=== PATIENT | female | born 1975 | race Caucasian/White ===

== ENCOUNTER → 2016-03-01 | Outpatient (CLI) | payer OTHER ==
[~2016-03-01] MED LIST: AMPH10TA2 PO; ATV/1 PO; BREX1TAB2 PO; ELET40TA PO; FLUO20CA37 PO; FURO-85 PO; GABA-112 PO; GABA1CAP5 PO; HYDR-5688 PO; LAMO1TAB21 PO; OMEP40CA PO; PRAZ2CAP3 PO; PROP1TAB PO; TIZA4TAB3 PO
[2016-03-01 18:54] LABS: URINE APPEARANCE CLOUDY (CLEAR); URINE BILIRUBIN NEG (NEG); URINE COLOR YELLOW; URINE EPITHELIAL CELL AUTO 20-30 /lpf (0-5); URINE NITRITE NEG (NEG); UROBILINOGEN NEG (NEG)
[2016-03-01 19:17] LABS: MANUAL MICROSCOPIC REQUIRED? NO; REVIEW REQ? YES
[2016-03-05 12:35] LABS: CHLAMYDIA TRACH RNA*** NOT DETECTED (NOT DETECTED); GC (NEIS GONORRHOEAE)RNA** NOT DETECTED (NOT DETECTED)
== END | disposition home or self-care (01) ==
LOC: C.LABSPEC 16:56
PROVIDERS: ATTEND Nurse Practitioner
DX: R39.9 Unspecified symptoms and signs involving the genitourinary system (principal); N76.0 Acute vaginitis

== ENCOUNTER → 2017-04-19 | Outpatient (CLI) | payer OTHER ==
[~2017-04-19] MED LIST changes: +GABA-1220 PO; -GABA1CAP5 PO
== END | disposition home or self-care (01) ==
LOC: C.LABBFT 09:32
PROVIDERS: ATTEND Physician Assistant Medical
DX: R30.0 Dysuria (principal); Z00.00 Encounter for general adult medical examination without abnormal findings; F41.9 Anxiety disorder, unspecified; F31.9 Bipolar disorder, unspecified; R73.01 Impaired fasting glucose; I10 Essential (primary) hypertension; E87.6 Hypokalemia; M25.562 Pain in left knee

== ENCOUNTER 2019-02-02 12:57 | Inpatient (IN) ==
[2019-02-02] MEDS ORDERED: NALOXONE HCL 0.4 MG/1 ML VIAL/CARP IV STA (13:38)
[2019-02-02 13:42] LABS: Basophils # (auto) 0.08 K/uL (0-0.2); Basophils % (auto) 0.7 %; Eosinophils # (auto) 0.44 K/uL (0-0.5); Eosinophils % (auto) 4.1 %; Hematocrit (blood only) 40.6 % (37-47); Hemoglobin 13.9 g/dL (12.0-16.0); Immature Granulocytes # (auto) 0.04 K/uL (0.00-0.02); Immature Granulocytes % (auto) 0.4 %; Lymphocytes # (auto) 3.92 K/uL (1.2-3.4); Lymphocytes % (auto) 36.3 %; Mean Corpuscular Hemoglobin 28.8 pg (25-34); Mean Corpuscular Hgb Conc 34.2 g/dL (32-36); Mean Corpuscular Volume 84.1 fL (80-100); Mean Platelet Volume 9.3 fL (7.4-10.4); Monocytes # (auto) 0.67 K/uL (0.11-0.59); Monocytes % (auto) 6.2 %; Neutrophils # (auto) 5.64 K/uL (1.4-6.5); Neutrophils % (auto) 52.3 %; Platelet Count 340 K/uL (130-400); RDW Coefficient of Variation 15.4 % (11.5-14.5); RDW Standard Deviation 46.8 fL (36.4-46.3); Red Blood Count 4.83 M/uL (4.2-5.4); White Blood Count 10.79 K/uL (4.8-10.8)
[2019-02-02 13:50] LABS: Alanine Aminotransferase 14 U/L (12-78); Albumin Level 3.4 gm/dl (3.4-5.0); Aspartate Aminotransferase 13 U/L (15-37); BUN Creatinine Ratio 19.1 (10-20); Blood Urea Nitrogen 17 mg/dl (7-18); Carbon Dioxide 21 mmol/L (21-32); Chloride 107 mmol/L (98-107); Est GFR (African American) 94.6; Est GFR (Non-African American) 81.6; Glucose 106 mg/dl (70-99); Lipase 169 U/L (73-393); Potassium 3.9 mmol/L (3.5-5.1); Sodium 136 mmol/L (136-145)
[2019-02-02] MEDS: NITROGLYCERIN SL 0.4 MG/TAB TAB SL PRN ×2 (13:51→14:18)
[2019-02-02 13:55] LABS: Albumin Globulin Ratio 0.9 (0.9-2); Alkaline Phosphatase 101 U/L (45-117); Bilirubin,Total 0.3 mg/dl (0.2-1); Globulin 3.7 gm/dl (2.5-4.0); Total Protein 7.1 gm/dl (6.4-8.2); Troponin I < 0.015 ng/ml (0-0.045)
--- NOTE | 2019-02-02 13:58 | XRay Report ---
XR chest 1V portable CLINICAL HISTORY: Chest Pain COMPARISON STUDY: No previous studies for comparison. FINDINGS: The bones soft tissues and hemidiaphragms are normal. The cardiomediastinal silhouette is n ormal. The lungs are clear. The pulmonary vasculature is normal. IMPRESSION: Negative chest. The above report was generated using voice recognition software. It may contain grammatical, syntax or spelling errors. Electronically signed by: Corwin Manjarrez M.D. 02/02/2019 1:56 PM
--- NOTE | 2019-02-02 15:49 | Emergency Department Note ---
Entered by Domonique Franklin acting as a scribe for Christi Betancur MD History of Present Illness General Chief complaint: Chest Pain Source: patient History of Present Illness Onset (ago): minute(s) (prior to arrival) Location: chest Radiation: extremity (left armpit and left arm ) Pain Consistency: + other (episode) Maximum Pain Intensity: 8 Quality: + other (chest pain) Associated symptoms: + other (+left arm numbness; -abdominal pain) Treatments prior to arrival: other (2 aspirin) The patient is a 43 year old female, with past medical history of hypertension and major depression, who presents to the Emergency Room with complaints of an episode of chest pain that began just prior to arrival while the patient was sitting in the parking lot of a grocery store. The patient notes she has experienced similar chest pain in the past, but she states it typically resolves itself. However, the patient notes todays episode kept worseneing to the point where the patient states it felt as if there was a huge knife in her chest. The patient states the pain travels up her ribs, into her left armpit, and into her left arm. She also notes her left arm feels numb. She describes this numbness by saying her arm feels as if she wrote a 10 page paper by hand. The patient note she took her daily medications this morning. The patient denies abdominal pain or a chance for . The patient reports she smokes a pack of cigarettes a day. She also notes she received 2 aspirin in the ambulance en route to the ED. Home Medications Home Medications Medication Instructions Recorded Confirmed Type albuterol sulfate [Ventolin HFA] 2 puff INHALATION Q6H PRN 07/11/18 02/02/19 History tizanidine 4 mg tablet See Rx Instructions PO TID PRN 01/16/19 02/02/19 Rx #150 tab alprazolam 0.5 mg PO TID #30 tab 02/02/19 Rx aspirin [Ecotrin Low Strength] 81 mg PO QAM 30 Days #30 tab 02/02/19 Rx atorvastatin 80 mg PO QAM #30 tab 02/02/19 Rx brexpiprazole [Rexulti] 3 mg PO DAILY 30 Days #30 tabs 02/02/19 Rx brexpiprazole [Rexulti] 3 mg PO QAM #30 tab 02/02/19 Rx dextroamphetamine-amphetamine 20 mg PO TID #30 tabs 02/02/19 Rx [Adderall] gabapentin 600 mg PO UD #60 cap 02/02/19 Rx gabapentin 900 mg PO HS #90 cap 02/02/19 Rx lamotrigine 100 mg PO BID #60 tab 02/02/19 Rx metoprolol tartrate 25 mg PO BID #60 tab 02/02/19 Rx prazosin 1 mg PO HS 02/02/19 02/02/19 History Allergies Allergy/AdvReac Type Severity Reaction Status Date / Time nitrofurantoin Allergy Severe throat Verified 02/02/19 17:19 edema. ketorolac Allergy Intermediate Hot skin Verified 02/02/19 17:19 blotches. meperidine Allergy Intermediate hot skin Verified 02/02/19 17:19 blotches Past Med/Surg History Medical History Diabetes mellitus, type 2 diet controlled Fibromyalgia GERD (gastroesophageal reflux disease) Hearing deficit History of endometriosis History of thyroiditis HTN (hypertension) (Chronic) Hx of anxiety disorder (Chronic) Hx of bipolar disorder (Chronic) Hx of major depression (Chronic) Hx of migraines (Chronic) Hyperlipidemia IBS (irritable bowel syndrome) Lumbar radiculopathy (Chronic) Medical marijuana use Pain management contract broken (Chronic) Per PCP notes: Random urine screen was negative for Gabapentin and Hydrocodone was appropriate. 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 smokes) ; Hx Alcohol Use: No Hx Substance Use: Yes (medical marijuana) substance use type: marijuana S ubstance Use Type Other:: medical marijuana Last Used Substance: Just Prior to Arrival Review of Systems See HPI for pertinent positives & negatives. and A total of 10 systems reviewed and were otherwise negative Physical Exam Vital Signs Vital Signs - 24 hr 02/02/19 13:03 02/02/19 13:06 02/02/19 13:08 Temperature 36.7 C Temperature Source Oral Pulse Rate 85 84 84 Pulse Rate [Apical] Pulse Rate from SpO2 Sensor 85 86 Pulse Rhythm [Apical] Pulse Strength [Apical] Respiratory Rate 23 20 23 Respiratory Effort / Characteristics Non-Labored Spontaneous Respiratory Depth Normal Respiratory Pattern Blood Pressure 163/91 H 163/91 H Blood Pressure [Left Arm] Blood Pressure Mean 113 115 Blood Pressure Mean [Left Arm] Blood Pressure Position Lying Blood Pressure Position [Left Arm] Pulse Oximetry 94 94 95 Oxygen Delivery Method Room Air Sepsis Recent Fever Within 48 Hours No Sepsis New/Unexplained Change in Mental Status No Sepsis Action Taken by Nursing No Action Required 02/02/19 13:10 02/02/19 13:20 02/02/19 13:30 Temperature Temperature Source Pulse Rate 89 91 H 81 Pulse Rate [Apical] Pulse Rate from SpO2 Sensor 88 91 H 82 Pulse Rhythm [Apical] Pulse Strength [Apical] Respiratory Rate 26 H 22 20 Respiratory Effort / Characteristics Respiratory Depth Respiratory Pattern Blood Pressure Blood Pressure [Left Arm] Blood Pressure Mean Blood Pressure Mean [Left Arm] Blood Pressure Position Blood Pressure Position [Left Arm] Pulse Oximetry 98 95 96 Oxygen Delivery Method Sepsis Recent Fever Within 48 Hours Sepsis New/Unexplained Change in Mental Status Sepsis Action Taken by Nursing 02/02/19 13:38 02/02/19 13:40 02/02/19 13:50 Temperature Temperature Source Pulse Rate 84 91 H Pulse Rate [Apical] Pulse Rate from SpO2 Sensor 84 92 H Pulse Rhythm [Apical] Pulse Strength [Apical] Respiratory Rate 18 20 Respiratory Effort / Characteristics Respiratory Depth Respiratory Pattern Blood Pressure Blood Pressure [Left Arm] Blood Pressure Mean Blood Pressure Mean [Left Arm] Blood Pressure Position Blood Pressure Position [Left Arm] Pulse Oximetry 95 99 Oxygen Delivery Method Room Air Sepsis Recent Fever Within 48 Hours Sepsis New/Unexplained Change in Mental Status Sepsis Action Taken by Nursing 02/02/19 13:53 02/02/19 14:00 02/02/19 14:10 Temperature Temperature Source Pulse Rate 91 H 88 80 Pulse Rate [Apical] Pulse Rate from SpO2 Sensor 90 88 78 Pulse Rhythm [Apical] Pulse Strength [Apical] Respiratory Rate 35 H 14 18 Respiratory Effort / Characteristics Respiratory Depth Respiratory Pattern Blood Pressure 148/100 H Blood Pressure [Left Arm] Blood Pressure Mean 115 Blood Pressure Mean [Left Arm] Blood Pressure Position Blood Pressure Position [Left Arm] Pulse Oximetry 99 97 99 Oxygen Delivery Method Sepsis Recent Fever Within 48 Hours Sepsis New/Unexplained Change in Mental Status Sepsis Action Taken by Nursing 02/02/19 14:17 02/02/19 14:20 02/02/19 14:30 Temperature Temperature Source Pulse Rate 78 83 87 Pulse Rate [Apical] 79 Pulse Rate from SpO2 Sensor 78 84 87 Pulse Rhythm [Apical] Regular Pulse Strength [Apical] Normal Respiratory Rate 13 15 7 L Respiratory Effort / Characteristics Non-Labored Spontaneous Respiratory Depth Normal Respiratory Pattern Regular Blood Pressure 132/81 141/73 H Blood Pressure [Left Arm] 132/81 Blood Pressure Mean 95 93 Blood Pressure Mean [Left Arm] 98 Blood Pressure Position Blood Pressure Position [Left Arm] Sitting Pulse Oximetry 100 97 98 Oxygen Delivery Method Room Air Sepsis Recent Fever Within 48 Hours Sepsis New/Unexplained Change in Mental Status Sepsis Action Taken by Nursing 02/02/19 14:31 02/02/19 14:40 02/02/19 14:50 Temperature Temperature Source Pulse Rate 84 79 81 Pulse Rate [Apical] Pulse Rate from SpO2 Sensor 85 81 82 Pulse Rhythm [Apical] Pulse Strength [Apical] Respiratory Rate 12 15 14 Respiratory Effort / Characteristics Respiratory Depth Respiratory Pattern Blood Pressure Blood Pressure [Left Arm] Blood Pressure Mean Blood Pressure Mean [Left Arm] Blood Pressure Position Blood Pressure Position [Left Arm] Pulse Oximetry 99 99 100 Oxygen Delivery Method Sepsis Recent Fever Within 48 Hours Sepsis New/Unexplained Change in Mental Status Sepsis Action Taken by Nursing 02/02/19 15:00 02/02/19 15:10 02/02/19 15:20 Temperature Temperature Source Pulse Rate 82 84 87 Pulse Rate [Apical] Pulse Rate from SpO2 Sensor Pulse Rhythm [Apical] Pulse Strength [Apical] Respiratory Rate 14 17 14 Respiratory Effort / Characteristics Respiratory Depth Respiratory Pattern Blood Pressure Blood Pressure [Left Arm] Blood Pressure Mean Blood Pressure Mean [Left Arm] Blood Pressure Position Blood Pressure Position [Left Arm] Pulse Oximetry Oxygen Delivery Method Sepsis Recent Fever Within 48 Hours Sepsis New/Unexplained Change in Mental Status Sepsis Action Taken by Nursing 02/02/19 16:04 02/02/19 16:10 02/02/19 16:11 Temperature Temperature Source Pulse Rate 85 85 88 Pulse Rate [Apical] Pulse Rate from SpO2 Sensor 87 Pulse Rhythm [Apical] Pulse Strength [Apical] Respiratory Rate 17 24 20 Respiratory Effort / Characteristics Respiratory Depth Respiratory Pattern Blood Pressure 140/94 Blood Pressure [Left Arm] Blood Pressure Mean 101 Blood Pressure Mean [Left Arm] Blood Pressure Position Blood Pressure Position [Left Arm] Pulse Oximetry 94 Oxygen Delivery Method Sepsis Recent Fever Within 48 Hours Sepsis New/Unexplained Change in Mental Status Sepsis Action Taken by Nursing 02/02/19 16:12 02/02/19 16:20 02/02/19 16:30 Temperature Temperature Source Pulse Rate 84 85 85 Pulse Rate [Apical] Pulse Rate from SpO2 Sensor 86 85 85 Pulse Rhythm [Apical] Pulse Strength [Apical] Respiratory Rate 19 20 18 Respiratory Effort / Characteristics Respiratory Depth Respiratory Pattern Blood Pressure 142/92 H Blood Pressure [Left Arm] Blood Pressure Mean 100 Blood Pressure Mean [Left Arm] Blood Pressure Position Blood Pressure Position [Left Arm] Pulse Oximetry 96 98 96 Oxygen Delivery Method Sepsis Recent Fever Within 48 Hours Sepsis New/Unexplained Change in Mental Status Sepsis Action Taken by Nursing 02/02/19 16:31 02/02/19 17:45 Temperature Temperature Source Pulse Rate 88 Pulse Rate [Apical] 77 Pulse Rate from SpO2 Sensor 89 Pulse Rhythm [Apical] Regular Pulse Strength [Apical] Normal Respiratory Rate 24 16 Respiratory Effort / Characteristics Non-Labored Respiratory Depth Normal Respiratory Pattern Regular Blood Pressure Blood Pressure [Left Arm] 156/100 H Blood Pressure Mean Blood Pressure Mean [Left Arm] 118 Blood Pressure Position Blood Pressure Position [Left Arm] Lying Pulse Oximetry 96 96 Oxygen Delivery Method Room Air Sepsis Recent Fever Within 48 Hours Sepsis New/Unexplained Change in Mental Status Sepsis Action Taken by Nursing Vital signs reviewed. General: Appears sedate, in no significant distress. HEENT: No scleral icterus, PERRLA, neck supple. Atraumatic. Cardiovascular: Regular rate and rhythm, no extra sounds. Pulmonary: Clear to auscultation bilaterally, normal work of breathing. Abdomen: Obese, soft, nontender, nondistended, positive bowel sounds. Musculoskeletal: Atraumatic, no peripheral edema. Neurologic: Patient awake alert and oriented x 3, full strength in all 4 extremities. Cranial nerves 2 through 12 grossly intact. Skin: Warm, dry, no rash Course Course 1332: Past medical records reviewed. The patient was evaluated in room B11A. A complete history and physical exam was performed. 1458: A repeat troponin was ordered. Administered Medications Discontinued Medications Eptifibatide (Integrilin (Arc [employer]der Use Only)) Confirm Administered Dose 40 mg IV .STK-MED ONE Stop: 02/02/19 17:12 Last Admin: 02/02/19 17:22 Dose: 177 mg Documented by: [id number] Eptifibatide (Integrilin (Arc [employer]der Use Only)) Confirm Administered Dose 75 mg .ROUTE .STK-MED ONE Stop: 02/02/19 17:12 Last Admin: 02/02/19 17:22 Dose: 75 mg Documented by: [id number] Eptifibatide (Integrilin (Arc [employer]der Use Only)) Confirm Administered Dose 20 mg IV .STK-MED ONE Stop: 02/02/19 17:15 Last Admin: 02/02/19 17:23 Dose: Not Given Documented by: [id number] Fentanyl Citrate (Fentanyl Citrate) Confirm Administered Dose 100 mcg .ROUTE .STK-MED ONE Stop: 02/02/19 16:09 Last Admin: 02/02/19 17:19 Dose: 100 mcg Documented by: [id number] Fentanyl Citrate (Fentanyl Citrate) Confirm Administered Dose 100 mcg .ROUTE .STK-MED ONE Stop: 02/02/19 16:57 Last Admin: 02/02/19 17:21 Dose: 100 mcg Documented by: [id number] Fentanyl Citrate (Fentanyl Citrate) Confirm Administered Dose 100 mcg .ROUTE .STK-MED ONE Stop: 02/02/19 17:08 Last Increment: 02/02/19 17:21 Dose: 25 mcg Documented by: [id number] Heparin Sodium (Porcine) (Heparin Iv Bolus (Arc [employer]der Use Only)) Confirm Administered Dose 10,000 units .ROUTE .STK-MED ONE Stop: 02/02/19 16:09 Last Admin: 02/02/19 17:20 Dose: 10,000 units Documented by: [id number] Heparin Sodium (Porcine) (Heparin Iv Bolus (Arc [employer]der Use Only)) Confirm Administered Dose 10,000 units .ROUTE .STK-MED ONE Stop: 02/02/19 17:10 Last Admin: 02/02/19 17:22 Dose: 3,000 units Documented by: [id number] Heparin Sodium/Sodium Chloride (Heparin/Nss 1000 Unit/500ml Flush Bag) Confirm Administered Dose 3,000 units IV .STK-MED ONE Stop: 02/02/19 16:10 Last Admin: 02/02/19 17:20 Dose: 3,000 units Documented by: [id number] Midazolam HCl (Versed) Confirm Administered Dose 2 mg .ROUTE .STK-MED ONE Stop: 02/02/19 16:10 Last Admin: 02/02/19 17:20 Dose: 2 mg Documented by: [id number] Midazolam HCl (Versed) Confirm Administered Dose 2 mg .ROUTE .STK-MED ONE Stop: 02/02/19 16:55 Last Admin: 02/02/19 17:21 Dose: 2 mg Documented by: [id number] Midazolam HCl (Versed) Confirm Administered Dose 2 mg .ROUTE .STK-MED ONE Stop: 02/02/19 17:02 Last Admin: 02/02/19 17:21 Dose: 2 mg Documented by: [id number] Midazolam HCl (Versed) Confirm Administered Dose 4 mg .ROUTE .STK-MED ONE Stop: 02/02/19 17:09 Last Increment: 02/02/19 17:21 Dose: 2 mg Documented by: [id number] Naloxone HCl (Narcan) 0.4 mg IV NOW STA Stop: 02/02/19 13:39 Last Admin: 02/02/19 14:11 Dose: Not Given Documented by: [id number] Nicardipine HCl (Cardene) Confirm Administered Dose 25 mg .ROUTE .STK-MED ONE Stop: 02/02/19 16:09 Last Admin: 02/02/19 17:19 Dose: 25 mg Documented by: [id number] Nitroglycerin (Nitrostat) 0.4 mg SL UD PRN PRN Reason: Chest Pain Stop: 03/04/19 13:32 Last Admin: 02/02/19 14:18 Dose: 0.4 mg Documented by: [id number] Admin: 02/02/19 13:51 Dose: 0.4 mg Documented by: [id number] Nitroglycerin/Dextrose (Nitroglycerin/D5w 100 Mcg/Ml 20ml Syringe) Confirm Administered Dose 2,000 mcg .ROUTE .STK-MED ONE Stop: 02/02/19 16:11 Last Admin: 02/02/19 17:20 Dose: 2,000 mcg Documented by: [id number] Critical Care Time Critical Care Time: Yes The high probability of a clinically significant, sudden or life threatening d eterioration required my full and direct attention, intervention and personal management. The aggregate critical care time was 30 minutes. This time is in addition to time spent performing reported procedures but includes the following: [x] Data Review and interpretation [x] Patient assessment and monitoring of vital signs [x] Documentation [] Medication orders and management Medical Decision Making Differential Diagnosis Differential diagnosis: Etiologies such as cardiac ischemia, aortic dissection, pulmonary embolism, pneumonia, pneumothorax, musculoskeletal, infections, pericarditis, myocarditis, esophageal rupture, gastrointestinal, as well as others were entertained. Medical Records Attestation: I reviewed the patient's medical records. Home Medications Current Medication List: was personally reviewed by me Laboratory Data Attestation: I reviewed the patient's lab results. Result diagrams: 02/02/19 12:44 02/02/19 12:44 Lab Results 02/02/19 02/02/19 02/02/19 Range/Units 12:44 12:44 15:16 WBC 10.79 (4.8-10.8) K/uL RBC 4.83 (4.2-5.4) M/uL Hgb 13.9 (12.0-16.0) g/dL Hct 40.6 (37-47) % MCV 84.1 (80-100) fL MCH 28.8 (25-34) pg MCHC 34.2 (32-36) g/dL RDW Std Deviation 46.8 H (36.4-46.3) fL RDW Coeff of Ministerio 15.4 H (11.5-14.5) % Plt Count 340 (130-400) K/uL MPV 9.3 (7.4-10.4) fL Immature Gran % (Auto) 0.4 % Neut % (Auto) 52.3 % Lymph % (Auto) 36.3 % [place] % (Auto) 6.2 % Eos % (Auto) 4.1 % Baso % (Auto) 0.7 % Immature Gran # (Auto) 0.04 H (0.00-0.02) K/uL Neut # (Auto) 5.64 (1.4-6.5) K/uL Lymph # (Auto) 3.92 H (1.2-3.4) K/uL [place] # (Auto) 0.67 H (0.11-0.59) K/uL Eos # (Auto) 0.44 (0-0.5) K/uL Baso # (Auto) 0.08 (0-0.2) K/uL Sodium 136 (136-145) mmol/L Potassium 3.9 (3.5-5.1) mmol/L Chloride 107 (98-107) mmol/L Carbon Dioxide 21 (21-32) mmol/L Anion Gap 8.0 (3-11) BUN 17 (7-18) mg/dl Creatinine 0.87 (0.6-1.2) mg/dl Est Cr Clr Drug Dosing Not Reportable Est GFR ( Amer) 94.6 Est GFR (Non-Af Amer) 81.6 BUN/Creatinine Ratio 19.1 (10-20) Glucose 106 H (70-99) mg/dl Calcium 9.0 (8.5-10.1) mg/dl Total Bilirubin 0.3 (0.2-1) mg/dl AST 13 L (15-37) U/L ALT 14 (12-78) U/L Alkaline Phosphatase 101 (45-117) U/L Troponin I < 0.015 0.251 H* (0-0.045) ng/ml Total Protein 7.1 (6.4-8.2) gm/dl Albumin 3.4 (3.4-5.0) gm/dl Globulin 3.7 (2.5-4.0) gm/dl Albumin/Globulin Ratio 0.9 (0.9-2) Lipase 169 (73-393) U/L Urine Opiates Screen (Neg) Ur Methadone, Qual (Neg) Urine Barbiturates (Neg) Ur Phencyclidine (PCP) (Neg) U Amphetamin/Meth Scrn (Neg) MDMA (Ecstasy) Screen (Neg) U Benzodiazepines Scrn (Neg) Ur Cocaine Metabolite (Neg) U Marijuana (THC) Screen (Neg) 02/02/19 Range/Units 15:41 WBC (4.8-10.8) K/uL RBC (4.2-5.4) M/uL Hgb (12.0-16.0) g/dL Hct (37-47) % MCV (80-100) fL MCH (25-34) pg MCHC (32-36) g/dL RDW Std Deviation (36.4-46.3) fL RDW Coeff of Ministerio (11.5-14.5) % Plt Count (130-400) K/uL MPV (7.4-10.4) fL Immature Gran % (Auto) % Neut % (Auto) % Lymph % (Auto) % [place] % (Auto) % Eos % (Auto) % Baso % (Auto) % Immature Gran # (Auto) (0.00-0.02) K/uL Neut # (Auto) (1.4-6.5) K/uL Lymph # (Auto) (1.2-3.4) K/uL [place] # (Auto) (0.11-0.59) K/uL Eos # (Auto) (0-0.5) K/uL Baso # (Auto) (0-0.2) K/uL Sodium (136-145) mmol/L Potassium (3.5-5.1) mmol/L Chloride (98-107) mmol/L Carbon Dioxide (21-32) mmol/L Anion Gap (3-11) BUN (7-18) mg/dl Creatinine (0.6-1.2) mg/dl Est Cr Clr Drug Dosing Est GFR ( Amer) Est GFR (Non-Af Amer) BUN/Creatinine Ratio (10-20) Glucose (70-99) mg/dl Calcium (8.5-10.1) mg/dl Total Bilirubin (0.2-1) mg/dl AST (15-37) U/L ALT (12-78) U/L Alkaline Phosphatase (45-117) U/L Troponin I (0-0.045) ng/ml Total Protein (6.4-8.2) gm/dl Albumin (3.4-5.0) gm/dl Globulin (2.5-4.0) gm/dl Albumin/Globulin Ratio (0.9-2) Lipase (73-393) U/L Urine Opiates Screen Neg (Neg) Ur Methadone, Qual Neg (Neg) Urine Barbiturates Neg (Neg) Ur Phencyclidine (PCP) Neg (Neg) U Amphetamin/Meth Scrn Neg (Neg) MDMA (Ecstasy) Screen Neg (Neg) U Benzodiazepines Scrn Neg (Neg) Ur Cocaine Metabolite Neg (Neg) U Marijuana (THC) Screen Neg (Neg) Imaging Data Radiologist's Impression: Radiology results as stated below per my review and the radiologist's interpretation: XR chest 1V portable CLINICAL HISTORY: Chest Pain COMPARISON STUDY: No previous studies for comparison. FINDINGS: The bones soft tissues and hemidiaphragms are normal. The cardiomediastinal silhouette is normal. The lungs are clear. The pulmonary vasculature is normal. IMPRESSION: Negative chest. The above report was generated using voice recognition software. It may contain grammatical, syntax or spelling errors. Electronically signed by: Corwin Manjarrez M.D. 02/02/2019 1:56 PM ECG Data Attestation: I personally reviewed and interpreted this ECG as follows: Indication: + chest pain Rate (beats per minute): 86 Rhythm: + normal sinus ECG Intervals/blocks: + Normal QT-c (466) ECG ST segments: no ST depression and no ST elevation ECG Findings: + Other (J point elevation consistent with early repolarization; ); no PACs and no PVCs Additional Comments: Repeat EKG at 1559 indicates a normal sinus rhythm at [address] elevation in the anterior leads no reciprocal change is appreciated. Heart alert called Blood Pressure Blood Pressure Findings: Elevated blood pressure Blood Pressure Disposition: elevated BP felt to be situational MDM Narrative This patient was evaluated and appeared to be in no significant distress. Patient was sitting up in the bed talking with her family. She did receive aspirin and nitroglycerin prior to arrival. Patient seemed to be sedate/ intoxicated and Narcan was ordered however the patient requested pain medication by nursing staff. No Narcan was administered. EKG was reviewed and reveals a sinus rhythm with J-point elevation diffusely. Chest x-ray was obtained and is negative. Patient's laboratory work reveals a negative troponin. A repeat troponin at 2.5 hours was ordered and results are positive at 0.251. Repeat EKG reveals ST elevation in the anterior leads, although the patient's pain has somewhat improved. She now only complains of "pain in my armpits." A heart alert was called. Plan was d/w pt. She was upset and requested a cigarette. She initially wanted to signout AMA to smoke but was thankfully convinced to stay. Dr Greenfield arrived at the bedside and took pt for cardiac cath. Impression & Plan ST elevation (STEMI) myocardial infarction Discharge Plan Visit Data *Final* Discharge Date/Time: 02/02/19 16:41 Chief Complaint: Chest Pain ED Provider: Christi Betancur Discharge Problem: ST elevation (STEMI) myocardial infarction Patient Disposition: Still a Patient Discharge Instructions Interventions: ED Discharge Assessment Last Done: 02/02/19 16:41 Discharge Problem: ST elevation (STEMI) myocardial infarction Qualifiers: Involved coronary artery: unspecified coronary artery Qualified Code(s): I21.3 - ST elevation (STEMI) myocardial infarction of unspecified site The scribe's documentation has been prepared under my direction and personally reviewed by me in its entirety. I confirm that the note above accurately reflects all work, treatment, procedures, and medical decision making performed by me.
[2019-02-02] MEDS ORDERED: HEPARIN (PORCINE) 1000 UNIT/ML 10 ML (CATH LAB USE ONLY) ONE ×2 (16:08→17:09)
[2019-02-02] MEDS ORDERED: fentaNYL citrate 100 MCG/2 ML VIAL ONE ×3 (16:08→17:07)
[2019-02-02] MEDS ORDERED: NiCARDipine HCL INJ 2.5 MG/ML 10 ML AMP ONE (16:08)
[2019-02-02] MEDS ORDERED: MIDAZOLAM HCL 1 MG/ML 2ML VIAL ONE ×4 (16:09→17:08)
[2019-02-02] MEDS ORDERED: NITROGLYCERIN/D5W 100MCG/ML 20ML SYR ONE (16:10)
[2019-02-02 16:52] LABS: Amphetamines+Metham, Urine Neg (Neg); Barbiturates, Urine Neg (Neg); Benzodiazepine, Urine Neg (Neg); Cocaine, Urine Neg (Neg); MDMA (Ecstacy), Urine Neg (Neg); Methadone, Urine Neg (Neg); Opiate, Urine Neg (Neg); Phencyclidine, Urine Neg (Neg)
[2019-02-02] MEDS ORDERED: EPTIFIBATIDE 2 MG/ML 10 ML VIAL (CATH LAB USE ONLY) IV ONE ×2 (17:11→17:14)
[2019-02-02] MEDS ORDERED: EPTIFIBATIDE 0.75 MG/ML 75MG VIAL (CATH LAB USE ONLY) ONE (17:11)
--- NOTE | 2019-02-02 17:24 | Post Anesthesia Assessment ---
Date of Service February 02, 2019 Post Sedation Assessment Vital Signs Temp Pulse Pulse Resp BP BP Pulse Ox 02/02/19 16:31 88 24 96 02/02/19 16:30 85 18 142/92 H 96 02/02/19 16:20 85 20 98 02/02/19 16:12 84 19 96 02/02/19 16:11 88 20 140/94 94 02/02/19 16:10 85 24 02/02/19 16:04 85 17 02/02/19 15:20 87 14 02/02/19 15:10 84 17 02/02/19 15:00 82 14 02/02/19 14:50 81 14 100 02/02/19 14:40 79 15 99 02/02/19 14:31 84 12 99 02/02/19 14:30 87 7 L 141/73 H 98 02/02/19 14:20 83 15 97 02/02/19 14:17 78 79 13 132/81 132/81 100 02/02/19 14:10 80 18 99 02/02/19 14:00 88 14 97 02/02/19 13:53 91 H 35 H 148/100 H 99 02/02/19 13:50 91 H 20 99 02/02/19 13:40 84 18 95 02/02/19 13:30 81 20 96 02/02/19 13:20 91 H 22 95 02/02/19 13:10 89 26 H 98 02/02/19 13:08 84 23 95 02/02/19 13:06 98.1 F 84 20 163/91 H 94 02/02/19 13:03 85 23 163/91 H 94 Recovery Score Activity: Moves 4 extremities Respiration: Deep Breath/Cough Circulation: +/-20% PreAnes Value Consciousness: Fully Awake Oxygen Saturation: O2 needed for >90% Discharge Sedation Level of Care: Fast Track Phase II Post Sedation Plan On clinical assessment, the patient appears to have tolerated the sedation without complications. Patient is recovering as anticipated. Patient will continue to be monitored by nursing and may be discharged when sedation discharge criteria are met per below protocol. Upon Completions of procedure up to 15 minutes continue every 5 minute vital signs and the P.A.R. score; then discharge to a Phase I or Fast Track to Phase II per the following guidelines: * Discharge Patient to appropriate Phase II area if PAR is 8 or greater or return to pre- procedure baseline. The post - procedure orders will be as directed. * If PAR score is less than 8 or not return to pre-procedure baseline then patient will follow Phase I monitoring till PAR is reached for Phase II. The Phase I may be done in procedure room or may call to secure a Phase I area. * If naloxone or flumazenil are used for reversal, hold in Phase I for continued monitoring from when last reversal dose was given for a minimum of 60 minutes or longer pending the nurse and/or physician discretion of patient condition before discharge to Phase II. Please call the Sedation Physician to re-evaluate and complete post-note for discharge to Phase II area. Do NOT discharge from procedure sedation or Phase 1 until post- sedation evaluation note is complete by procedure /sedation MD Sedation Discharge Instructions to be given to the patient at discharge to home.
--- NOTE | 2019-02-02 17:24 | Pre Anesthesia Assessment ---
Date of Service February 02, 2019 Pre Sedation Assessment Vital Signs Temp Pulse Pulse Resp BP BP Pulse Ox 02/02/19 16:31 88 24 96 02/02/19 16:30 85 18 142/92 H 96 02/02/19 16:20 85 20 98 02/02/19 16:12 84 19 96 02/02/19 16:11 88 20 140/94 94 02/02/19 16:10 85 24 02/02/19 16:04 85 17 02/02/19 15:20 87 14 02/02/19 15:10 84 17 02/02/19 15:00 82 14 02/02/19 14:50 81 14 100 02/02/19 14:40 79 15 99 02/02/19 14:31 84 12 99 02/02/19 14:30 87 7 L 141/73 H 98 02/02/19 14:20 83 15 97 02/02/19 14:17 78 79 13 132/81 132/81 100 02/02/19 14:10 80 18 99 02/02/19 14:00 88 14 97 02/02/19 13:53 91 H 35 H 148/100 H 99 02/02/19 13:50 91 H 20 99 02/02/19 13:40 84 18 95 02/02/19 13:30 81 20 96 02/02/19 13:20 91 H 22 95 02/02/19 13:10 89 26 H 98 02/02/19 13:08 84 23 95 02/02/19 13:06 98.1 F 84 20 163/91 H 94 02/02/19 13:03 85 23 163/91 H 94 Cardiovascular RRR, no murmur, no edema Respiratory normal respiratory effort, lungs clear to auscultation Pre-Sedation Airway Assessment Smoking Status: Current every day smoker Hx Sleep Apnea: No Hx Difficult Intubation: No Short, Thick Neck: No Thyromental Distance: > or= 3.5 Finger Breadths Oral Cavity: + WNL Mallampati Class: III ASA: ASA4 Procedure Planning Contraindications for Sedation: none Current Medications Reviewed: Yes Notes The planned sedation has been discussed with the patient. Informed Consent was obtained. I have identified the patient, determined the appropriateness of sedation and have assessed the patient immediately prior to the procedure. All medicine(s) and interventions are by my order.
[2019-02-02] MEDS ORDERED: NITROGLYCERIN/D5W 100 MCG/ML BTL ONE (17:27)
--- NOTE | 2019-02-02 17:30 | Cardiac Catheterization ---
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 Cardiac Status Clinical evaluation leading to the procedure CAD Presenation: Non STEMI Anginal Classification: CCS IV Heart Failure: No Cardiogenic Shock within 24 Hours: No Cardiac Arrest within 24 Hours: No Imaging Studies Past 6 Months: No Stress Studies Past 6 Months: No Diagnostic Physicians Name: Ángel Greenfield MD Status: Emergency Closure Device Percutaneous Entry Location: Radial Closure Device: Radial Band Recommendations: CABG Intraprocedure Events Significant Disection: No Perforation: No Cardiac Cath Procedure Full Procedure Date February 02, 2019 Pre-Procedure Diagnosis Pre-Procedure Diagnosis: STEMI AUC Score AUC Score: 9 Post-Procedure Diagnosis Post-Procedure Diagnosis: Severe CAD and Successful PCI Procedure(s) Performed Procedure(s) Performed: Coronary Angiography, Left Heart Cath and IVUS Meat Pumper Ángel Greenfield MD Hay Farmer(s) Usha Estimated Blood Loss Estimated Blood Loss: 15 Medication(s) Medication(s): Nicardipine and Nitroglycerin Summary of Findings Indication: Acute coronary syndrome with transient anterior ST elevations Access: 6 Fr slender right radial artery Catheters: EBU 3.5 guide, diagnostic JR4 Findings: LM -large caliber vessel with mobile lucency at the ostium extending almost to bifurcation LAD -large caliber vessel distal luminal irregularities. 100% distal occlusion as wraps around apex. Large caliber first diagonal without significant disease Circumflex -dominant, large caliber vessel, no significant disease. Large OM1, OM 2 and PDA without significant disease. RCA -nondominant without significant disease LVEDP -20 IVUS of left main -- Left main cannulated with EBU 3.5 guide BMW wire placed across distal LAD occlusion and around apex. Thrill IVUS catheter placed in mid LAD Pullback revealed apparent thrombus in mid left main, stenosis up to 60%, MLA 10.4 mm Catheter and wire removed. On final angiogram improved flow in apical LAD around apex Arterial Closure: TR Summary: 1. Acute left main thrombus with up to 60% stenosis by IVUS 2. Apical LAD 100% thrombotic occlusion 3. Elevated intracardiac filling pressure Recommendations: Patient started on Integrilin infusion Nitroglycerin infusion for residual chest pain Discussed with [facility] cardiology in [place], Dr. Regan and will transfer for further evaluation. Hemodynamics Rest Ao:: 148/90/117 Final Ao: 170/105/136 LV: 174/20 Recommendations Recommendations: CABG Specimens Specimens: None Radiation Exposure (mGy) 1942 Contrast (mls) 120 Fluids (cc crystalloids) Fluids (cc crystalloids): 62 Drains Drains: none Anesthesia moderate Procedural Complication(s) None Disposition ICU I attest to the content of the Intraoperative Record and any orders documented therein. Any exceptions are noted below. [facility] Card Cath Procedure Codes Cardiac Catheterization Procedure 1: Cardiovascular Cath Procedures: 37263 Coronaries and LHC (+/-LV) Therapeutic Services & Ancillary Proc Procedure 1: Cardiovascular Tx and Anc Procedures: 79794 IV Ultrasound (Coronary or Graft) Moderate Sedation Procedure 1: Sedation/Anesthesia: 74945 Mod Sedation by the same physician;Init15 Min Child Age 5 & Up Procedure 2: Sedation/Anesthesia: 86798 Mod Sedation by the same physician; Ea [id number] Minutes PG Care Time/CCT Total # of Minutes Spent Total Time Spent with Patient: Total time spent is greater than 50% in coordination of care (as documented) at patient's floor/unit and/or counseling patient:
[2019-02-02] MEDS ORDERED: ICU PROTOCOL FOR HYPERGLYCEMIA PRN ×2 (17:53→18:40)
[2019-02-02] MEDS ORDERED: SODIUM CHLORIDE 0.9% 1000ML 1,000 ML IV SCH (18:00)
--- NOTE | 2019-02-02 18:27 | Cardiology Consultation ---
Date of Consultation February 02, 2019 Assessment & Plan (1) Acute VT: Initial presentation concerning for acute VT. Was taken emergently for cardiac catheterization where was found to have an acutely occluded distal LAD as wrapped around apex. Was also noted to have mobile haziness in her left main coronary artery (left dominant system). IVUS suggestive of clot with up to 60% stenosis. Other than very distal LAD patient had LIZANDRO-3 flow throughout remainder of arterial system. Was hemodynamically stable with minimal residual chest pain. Patient placed on Integrilin and nitroglycerin infusion. [facility] transfer [facility] in [place] for further assessment by interventional cardiology, cardiac surgery. History of Present Illness Attending Physician: Ángel Greenfield MD History of Present Illness Ms. Michel is a 43-year-old man here with acute chest pain and ECG concerning for acute VT. Patient seen emergently in the ED after heart alert activated after second EKG. No prior cardiac history. Cardiac risk factors include diet-controlled diabetes, hypertension, obesity, tobacco abuse. Other medical issues include bipolar disease, chronic pain, fibromyalgia, GERD. Chest pain began approximately 2 hours prior to arrival while at rest. Describes substernal chest pressure radiating to her left armpit. Denies similar symptoms in the past. Chest pain at its worst 10/10, down to 3 out of 10 at time of interview. Hemodynamically stable. EKG showed anterior ST elevations on second EKG, troponin elevated to 0.2. Allergies Allergy/AdvReac Type Severity Reaction Status Date / Time nitrofurantoin Allergy Severe throat Verified 02/02/19 17:19 edema. ketorolac Allergy Intermediate Hot skin Verified 02/02/19 17:19 blotches. meperidine Allergy Intermediate hot skin Verified 02/02/19 17:19 blotches Home Medications Home Medications Medication Instructions Recorded Confirmed Type brexpiprazole 0.5 mg tablet 3 mg PO QAM 03/27/18 02/02/19 History dextroamphetamine-amphetamine 10 20 mg PO TID 03/27/18 02/02/19 History mg tablet lamotrigine 100 mg tablet 100 mg PO BID 03/27/18 02/02/19 History alprazolam 0.5 mg tablet 0.5 mg PO TID tab 07/09/18 02/02/19 History albuterol sulfate [Ventolin HFA] 2 puff INHALATION Q6H PRN 07/11/18 02/02/19 History lisinopril 40 mg tablet 40 mg PO QAM #30 tab 09/11/18 02/02/19 Rx estradiol 2 mg tablet 2 mg PO DAILY #30 tab 09/30/18 02/02/19 Rx ibuprofen 800 mg tablet 800 mg PO TID PRN #90 tab 11/03/18 02/02/19 Rx furosemide 20 mg tablet 20 mg PO QAM PRN #30 tab 11/10/18 02/02/19 Rx mometasone 50 mcg/actuation nasal 1 sprays INTNAS DAILY #17 gm 11/10/18 02/02/19 Rx spray ondansetron 4 mg disintegrating 4 mg PO Q6H PRN #30 tab 12/02/18 02/02/19 Rx tablet tizanidine 4 mg tablet See Rx Instructions PO TID PRN 01/16/19 02/02/19 Rx #150 tab amlodipine 10 mg PO DAILY 02/02/19 02/02/19 History brexpiprazole [Rexulti] 3 mg PO DAILY 02/02/19 02/02/19 History eletriptan [Relpax] 40 mg PO UD PRN MDD 2 DOSES/24HRS 02/02/19 02/02/19 History gabapentin 600 mg PO UD 02/02/19 02/02/19 History gabapentin 900 mg PO HS 02/02/19 02/02/19 History omeprazole 40 mg PO DAILY 02/02/19 02/02/19 History prazosin 1 mg PO HS 02/02/19 02/02/19 History propranolol 80 mg PO Q12H 02/02/19 02/02/19 History zolpidem 10 mg PO HS PRN 02/02/19 02/02/19 History Patient History Medical History Diabetes mellitus, type 2 diet controlled Fibromyalgia GERD (gastroesophageal reflux disease) Hearing deficit History of endometriosis History of thyroiditis HTN (hypertension) (Chronic) Hx of anxiety disorder (Chronic) Hx of bipolar disorder (Chronic) Hx of major depression (Chronic) Hx of migraines (Chronic) Hyperlipidemia IBS (irritable bowel syndrome) Lumbar radiculopathy (Chronic) Medical marijuana use Pain management contract broken (Chronic) Per PCP notes: Random urine screen was negative for Gabapentin and Hydrocodone was appropriate. Tachycardia TMJ click Surgical History History of bilateral tubal ligation History of section x 3 History of cholecystectomy (Resolved) History of colonoscopy History of surgery Removal of rectal cyst History of total abdominal hysterectomy and bilateral salpingo-oophorectomy Family History Grandmother (Maternal) Family history of diabetes mellitus Uncle Family history of diabetes mellitus Social History Preferred Language: Azeri Communication Ability: Effective Visual Impairment: No Limitations Hearing Ability: Normal Manager Book Required: No Beliefs That Will Affect Care: None marital status: single Current Living Situation: Significant Other current occupational status: disabled Feels Safe at Home: Yes Smoking Status: Current every day smoker Tobacco Type: cigarettes ; Cigarettes Per Day: 20 a day ; Second Hand Exposure: Yes (s.o. smokes) ; Hx Alcohol Use: No Hx Substance Use: Yes (medical marijuana) substance use type: marijuana Substance Use Type Other:: medical marijuana Last Used Substance: Just Prior to Arrival Review of Systems Review of Systems: Not obtained in the setting of an emergent situation Physical Exam Physical Exam: General: Comfortable, anxious, intermittently tearful HEENT: Sclerae anicteric, mucous membranes moist Lungs: Clear to auscultation bilaterally Cardiac: Regular rate and rhythm Abdomen: Soft, nontender, nondistended, positive bowel sounds. Extremities: Warm, well perfused, no edema. 2+ radial pulses Skin: No rashes or lesions. Neuro: Nonfocal Psych: Alert orient x3 Results & Data Vital Signs (Past 12 Hours) Vital Signs Temp Pulse Pulse Resp BP BP Pulse Ox 02/02/19 18:00 73 16 154/100 H 96 02/02/19 17:45 77 16 156/100 H 96 02/02/19 16:31 88 24 96 02/02/19 16:30 85 18 142/92 H 96 02/02/19 16:20 85 20 98 02/02/19 16:12 84 19 96 02/02/19 16:11 88 20 140/94 94 02/02/19 16:10 85 24 02/02/19 16:04 85 17 02/02/19 15:20 87 14 02/02/19 15:10 84 17 02/02/19 15:00 82 14 02/02/19 14:50 81 14 100 02/02/19 14:40 79 15 99 02/02/19 14:31 84 12 99 02/02/19 14:30 87 7 L 141/73 H 98 02/02/19 14:20 83 15 97 02/02/19 14:17 78 79 13 132/81 132/81 100 02/02/19 14:10 80 18 99 02/02/19 14:00 88 14 97 02/02/19 13:53 91 H 35 H 148/100 H 99 02/02/19 13:50 91 H 20 99 02/02/19 13:40 84 18 95 02/02/19 13:30 81 20 96 02/02/19 13:20 91 H 22 95 02/02/19 13:10 89 26 H 98 02/02/19 13:08 84 23 95 02/02/19 13:06 98.1 F 84 20 163/91 H 94 02/02/19 13:03 85 23 163/91 H 94 PG Care Time/CCT Total # of Minutes Spent Total Time Spent with Patient: Total time spent is greater than 50% in coordination of care (as documented) at patient's floor/unit and/or counseling patient:
[2019-02-02] MEDS ORDERED: EPTIFIBATIDE BOLUS/DRIP IV STA (18:28)
[2019-02-02] MEDS ORDERED: ONDANSETRON INJ 2 MG/ML 2 ML VIAL IV PRN (18:28)
[2019-02-02] MEDS ORDERED: NITROGLYCERIN/D5W 100MCG/ML 250 ML IV SCH (18:28)
[2019-02-02] MEDS ORDERED: METOPROLOL TARTRATE 25 MG TAB PO SCH (18:30)
[2019-02-02] MEDS ORDERED: ATORVASTATIN 40 MG TAB PO SCH (18:30)
[2019-02-02] MEDS ORDERED: ALBUTEROL HFA 8 GM INHALER INH PRN (18:37)
[2019-02-02] MEDS ORDERED: TIZANIDINE HCL 4 MG TABLET PO PRN (18:37)
[2019-02-02] MEDS ORDERED: ELETRIPTAN 40 MG PO PRN (18:37)
[2019-02-02] MEDS ORDERED: ZOLPIDEM TARTRATE 10 MG TAB PO PRN (18:37)
[2019-02-02] MEDS ORDERED: EPTIFIBATIDE 75 MG/100 ML VIAL IV SCH (19:00)
--- NOTE | 2019-02-02 19:04 | History & Physical Report ---
Date of Service February 02, 2019 Assessment & Plan (1) Acute NV: STEMI status post emergent cardiac catheterization that revealed acutely occluded distal LAD as wrapped around apex. Was also noted to have mobile haziness in her left main coronary artery (left dominant system). IVUS suggest jazzmine of clot with up to 60% stenosis. Other than very distal LAD patient had LIZANDRO-3 flow throughout remainder of arterial system. Was hemodynamically stable with minimal residual chest pain. Patient placed on Integrilin and nitroglycerin infusion. Dr. Greenfield discussed the case with Dr. Regan at [facility] in [place] for further assessment by interventional cardiology, cardiac surgery. (2) Hypertension: continue metoprolol (3) Hx of major depression: (4) Hx of anxiety disorder: (5) Dyslipidemia: lipitor History of Present Illness Chief Complaint: Chest pain Primary Care Provider: MAHAMED PCP 43 years old female with past medical history of tobacco abuse, GERD, fibromyalgia, endometriosis, thyroiditis, dyslipidemia, irritable bowel syndrome, lumbar radiculopathy on gabapentin, anxiety Bipolar disorder and essential hypertension. She was in her regular state of health, and her weight to go shopping when she started having chest pain prior to getting out of the car. Presented to the ED with severe substernal left chest wall pain referred to both shoulders, initial EKG showed nonspecific changes and troponin was negative. While she is in the ER repeat troponin was 0.25, EKG was repeated and showed ST elevation in anterior lateral leads, Was taken emergently for cardiac catheterization where was found to have an acutely occluded distal LAD as wrapped around apex. Was also noted to have mobile haziness in her left main coronary artery (left dominant system). IVUS suggestive of clot with up to 60% stenosis. Other than very distal LAD patient had LIZANDRO-3 flow throughout remainder of arterial system. Was hemodynamically stable with minimal residual chest pain. Patient placed on Integrilin and nitroglycerin infusion. Dr. Leal spoke with Dr. Regan at [facility] in [place] for further assessment by interventional cardiology, cardiac surgery. Allergies Allergy/AdvReac Type Severity Reaction Status Date / Time nitrofurantoin Allergy Severe throat Verified 02/02/19 17:19 edema. ketorolac Allergy Intermediate Hot skin Verified 02/02/19 17:19 blotches. meperidine Allergy Intermediate hot skin Verified 02/02/19 17:19 blotches Home Medications Home Medications Medication Instructions Recorded Confirmed Type albuterol sulfate [Ventolin HFA] 2 puff INHALATION Q6H PRN 07/11/18 02/02/19 History tizanidine 4 mg tablet See Rx Instructions PO TID PRN 01/16/19 02/02/19 Rx #150 tab alprazolam 0.5 mg PO TID #30 tab 02/02/19 Rx aspirin [Ecotrin Low Strength] 81 mg PO QAM 30 Days #30 tab 02/02/19 Rx atorvastatin 80 mg PO QAM #30 tab 02/02/19 Rx brexpiprazole [Rexulti] 3 mg PO DAILY 30 Days #30 tabs 02/02/19 Rx brexpiprazole [Rexulti] 3 mg PO QAM #30 tab 02/02/19 Rx dextroamphetamine-amphetamine 20 mg PO TID #30 tabs 02/02/19 Rx [Adderall] gabapentin 600 mg PO UD #60 cap 02/02/19 Rx gabapentin 900 mg PO HS #90 cap 02/02/19 Rx lamotrigine 100 mg PO BID #60 tab 02/02/19 Rx metoprolol tartrate 25 mg PO BID #60 tab 02/02/19 Rx prazosin 1 mg PO HS 02/02/19 02/02/19 History Past Med/Surg History Medical History Diabetes mellitus, type 2 diet controlled Fibromyalgia GERD (gastroesophageal reflux disease) Hearing deficit History of endometriosis History of thyroiditis HTN (hypertension) (Chronic) Hx of anxiety disorder (Chronic) Hx of bipolar disorder (Chronic) Hx of major depression (Chronic) Hx of migraines (Chronic) Hyperlipidemia IBS (irritable bowel syndrome) Lumbar radiculopathy (Chronic) Medical marijuana use Pain management contract broken (Chronic) Per PCP notes: Random urine screen was negative for Gabapentin and Hydrocodone was appropriate. Tachycardia TMJ click Surgical History History of bilateral tubal ligation History of section x 3 History of cholecystectomy (Resolved) History of colonoscopy History of surgery Removal of rectal cyst History of total abdominal hysterectomy and bilateral salpingo-oophorectomy Family History Grandmother (Maternal) Family history of diabetes mellitus Uncle Family history of diabetes mellitus Social History Preferred Language: Latvian Communication Ability: Effective Visual Impairment: No Limitations Hearing Ability: Normal Neighborhood Planner Required: No Beliefs That Will Affect Care: None marital status: single Current Living Situation: Family current occupational status: disabled Other Information That Helps Us Care for You: No Feels Safe at Home: Yes Safety Concerns: Feels Safe At This Time Smoking Status: Current every day smoker Tobacco Type: cigarettes ; Cigarettes Per Day: 20 a day ; Second Hand Exposure: Yes (s.o. smokes) ; Hx Alcohol Use: No Hx Substance Use: Yes (medical marijuana) substance use type: marijuana Substan ce Use Type Other:: medical marijuana Last Used Substance: Just Prior to Arrival Review of Systems Review of Systems: Review of system Constitutional: No fever / no chills / no sweats / no weakness / no fatigue Eyes: no blurring of vision / no eye pain / no discharge / no redness ENT: no hearing loss / no epistaxis /no swallowing problems Respiratory: no cough / no wheezing / no SOB / no hemoptysis Cardiovascular: Chest pain / no lower extremity edema / no palpitation Abdomen: no pain / no nausea / no vomiting / no constipation Musculoskeletal: no joint pain / no muscle pain / no joint swelling Genitourinary: no dysuria / no incontinence / no urinary retention Neurologic: no focal weakness / no numbness/tingling / no ataxia Psychiatric: no depression symptoms / no anxiety / no insomnia Endocrine: no excessive thirst / no excessive urination Hematologic: no abnormal bleeding / no bruising / no LN swelling Skin: No rash / no pallor Physical Exam Physical Exam: Physical examination General p obese appears to be anxious HEENT: Atraumatic , normocephalic /no jaundice /no pallor /anicteric /no dry mucous membrane /normal external ear inspection Neck: Supple /no swelling /central trach Heart: S1/S2 normal/regular rate and rhythm/no gallop /no rub /no murmur Lungs: Clear to auscultation bilaterally/normal chest with expansion/no rhonchi/no rales/no wheezing/no use of accessory muscles of respiration Abdomen: Soft/nontender/no guarding/no rebound/no organomegaly/no pulsatile mass Musculoskeletal: No swelling/no edema/no tenderness/normal range of motion Neuro exam: Awake alert oriented 3/cranial nerves II through XII appear to be intact/sensation intact/moves all extremities/no abnormal movements Psychiatric evaluation: Very anxious and tearful Skin: No rash on exposed skin area/no erythema Extremity: Normal pulse/no pitting edema/no clubbing or cyanosis Endocrine/lymphatic: No obvious lymphadenopathy /no lymphedema Results & Data Vital Signs (Past 12 Hours) Vital Signs Temp Pulse Pulse Resp BP BP Pulse Ox 02/02/19 18:42 36.7 C 90 22 142/92 H 100 02/02/19 18:23 36.7 C 88 16 142/92 H 96 02/02/19 18:00 73 16 154/100 H 96 02/02/19 17:45 77 16 156/100 H 96 02/02/19 16:31 88 24 96 02/02/19 16:30 85 18 142/92 H 96 02/02/19 16:20 85 20 98 02/02/19 16:12 84 19 96 02/02/19 16:11 88 20 140/94 94 02/02/19 16:10 85 24 02/02/19 16:04 85 17 02/02/19 15:20 87 14 02/02/19 15:10 84 17 02/02/19 15:00 82 14 02/02/19 14:50 81 14 100 02/02/19 14:40 79 15 99 02/02/19 14:31 84 12 99 02/02/19 14:30 87 7 L 141/73 H 98 02/02/19 14:20 83 15 97 02/02/19 14:17 78 79 13 132/81 132/81 100 02/02/19 14:10 80 18 99 02/02/19 14:00 88 14 97 02/02/19 13:53 91 H 35 H 148/100 H 99 02/02/19 13:50 91 H 20 99 02/02/19 13:40 84 18 95 02/02/19 13:30 81 20 96 02/02/19 13:20 91 H 22 95 02/02/19 13:10 89 26 H 98 02/02/19 13:08 84 23 95 02/02/19 13:06 36.7 C 84 20 163/91 H 94 02/02/19 13:03 85 23 163/91 H 94 Code Status & VTE Plan VTE Prophylaxis Plan VTE Prophylaxis will be ordered: No PG Care Time/CCT Total # of Minutes Spent Total Time Spent with Patient: Total time spent is greater than 50% in coordination of care (as documented) at patient's floor/unit and/or counseling patient:
--- NOTE | 2019-02-02 20:01 | Discharge Summary ---
Date of Service February 02, 2019 Admission HPI Per Admitting Provider 43 years old female with past medical history of tobacco abuse, GERD, fibromyalgia, endometriosis, thyroiditis, dyslipidemia, irritable bowel syndrome, lumbar radiculopathy on gabapentin, anxiety Bipolar disorder and essential hypertension. She was in her regular state of health, and her weight to go shopping when she started having chest pain prior to getting out of the car. Presented to the ED with severe substernal left chest wall pain referred to both shoulders, initial EKG showed nonspecific changes and troponin was negative. While she is in the ER repeat troponin was 0.25, EKG was repeated and showed ST elevation in anterior lateral leads, Was taken emergently for cardiac catheterization where was found to have an acutely occluded distal LAD as wrapped around apex. Was also noted to have mobile haziness in her left main coronary artery (left dominant system). IVUS suggestive of clot with up to 60% stenosis. Other than very distal LAD patient had LIZANDRO-3 flow throughout remainder of arterial system. Was hemodynamically stable with minimal residual chest pain. Patient placed on Integrilin and nitroglycerin infusion. Dr. Leal spoke with Dr. Regan at [facility] in [place] for further assessment by interventional cardiology, cardiac surgery. Principal Diagnosis (1) Acute LA: STEMI status post emergent cardiac catheterization that revealed acutely occluded distal LAD as wrapped around apex. Was also noted to have mobile haziness in her left main coronary artery (left dominant system). IVUS suggestive of clot with up to 60% stenosis. Other than very distal LAD patient had LIZANDRO-3 flow throughout remainder of arterial system. Was hemodynamically stable with minimal residual chest pain. Patient placed on Integrilin and nitroglycerin infusion. Dr. Greenfield discussed the case with Dr. Regan at [facility] for further assessment by interventional cardiology, cardiac surgery. (2) Hypertension: continue metoprolol (3) Hx of major depression: (4) Hx of anxiety disorder: (5) Dyslipidemia: lipitor Discharge Exam Physical examination General patient appears to be comfortable, not in acute distress HEENT: Atraumatic , normocephalic /no jaundice /no pallor /anicteric /no dry mucous membrane /normal external ear inspection Neck: Supple /no swelling /central trach Heart: S1/S2 normal/regular rate and rhythm/no gallop /no rub /no murmur Lungs: Clear to auscultation bilaterally/normal chest with expansion/no rhonchi/no rales/no wheezing/no use of accessory muscles of respiration Abdomen: Soft/nontender/no guarding/no rebound/no organomegaly/no pulsatile mass Musculoskeletal: No swelling/no edema/no tenderness/normal range of motion Neuro exam: Awake alert oriented 3/cranial nerves II through XII appear to be intact/sensation intact/moves all extremities/no abnormal movements Psychiatric evaluation: No depressed mood/normal affect Skin: No rash on exposed skin area/no erythema Extremity: Normal pulse/no pitting edema/no clubbing or cyanosis Endocrine/lymphatic: No obvious lymphadenopathy /no lymphedema Discharge Data Allergies Allergy/AdvReac Type Severity Reaction Status Date / Time nitrofurantoin Allergy Severe throat Verified 02/02/19 17:19 edema. ketorolac Allergy Intermediate Hot skin Verified 02/02/19 17:19 blotches. meperidine Allergy Intermediate hot skin Verified 02/02/19 17:19 blotches Consultations 02/02/19 16:20 ED Decision to Admit Stat 02/02/19 17:54 Consult Ic Design Engineer Routine 02/02/19 18:41 Consult Case Management - Discharge Planning Routine Consult Ic Design Engineer Routine Procedures Performed Operation Date: 02/02/19 16:05 Actual Procedures p Cath, Left with Cors and Vent - Eligio Greenfield MD s Cineradiography w/Routine Exam - Eligio Greenfield MD s IVUS Coronary Single Vessel - Eligio Greenfield MD Ordered Studies 02/02/19 16:09 CL Cath Imgs for PACS use only Stat 02/02/19 17:54 CL IVUS Coronary Single Vessel Stat Hospital Course (1) Acute LA: STEMI status post emergent cardiac catheterization that revealed acutely occluded distal LAD as wrapped around apex. Was also noted to have mobile haziness in her left main coronary artery (left dominant system). IVUS suggestive of clot with up to 60% stenosis. Other than very distal LAD patient had LIZANDRO-3 flow throughout remainder of arterial system. Was hemodynamically stable with minimal residual chest pain. Patient placed on Integrilin and nitroglycerin infusion. Dr. Greenfield discussed the case with Dr. Regan at [facility] in [place] for further assessment by interventional cardiology, cardiac surgery. (2) Hypertension: continue metoprolol (3) Hx of major depression: (4) Hx of anxiety disorder: (5) Dyslipidemia: lipitor Total Time Total Time Spent Total Time Spent (In Minutes): 35 minutes total time spent is greater than 50% in coordination of care (as documented) at patient's floor/unit and/or counseling patient/family discussion of care with nursing staff Discharge Plan Discharge Items Patient Disposition: Transfer Acute Care Hospital Reason For Visit: ACS Discharge Diagnosis: STEMI Dyslipidemia obesity tobacco abuse depression bipolar IBS HTN Anxiety GERD Fibromyalgia Activity: As commented below Activity Comment: bed rest Non-emergency contact: Primary Care Provider Call non-emergency contact if: you have any medication questions Follow-up/Referrals: PCP,NO [Primary Care Provider] - Dietitian Info: NPO Diet: Carb Consistent or DM2 Diet Comment: NPO Addtl Attending Provider Instructions: Dr. Lopez Discussed the case with Dr. Regan Pending Studies at Discharge: No Studies:: cardiac cath cardiac catheterization where was found to have an acutely occluded distal LAD as wrapped around apex. Was also noted to have mobile haziness in her left main coronary artery (left dominant system). IVUS suggestive of clot with up to 60% stenosis. Other than very distal LAD patient had LIZANDRO-3 flow throughout remainder of arterial system. Was hemodynamically stable with minimal residual chest pain. Patient placed on Integrilin and nitroglycerin infusion. Will transfer to [facility] in [place] for further assessment by interventional cardiology, cardiac surgery. Stand-Alone Forms: Call Back Authorization, [facility] Skilled Items Patient informed of condition?: Yes DNR: No Discharge Level of Care: Other Communicable Disease: No Discharge Prognosis: Stable Lines: Peripheral IV Urinary Catheter: Yes Medications and DC Order Prescriptions: New atorvastatin 40 mg Tablet 80 mg PO QAM Qty: 30 RF: 0 metoprolol tartrate 25 mg Tablet 25 mg PO BID Qty: 60 RF: 0 alprazolam 0.5 mg Tablet 0.5 mg PO TID Qty: 30 RF: 0 gabapentin 300 mg Capsule 900 mg PO HS Qty: 90 RF: 0 Brexpiprazole [ 3 mg PO QAM Qty: 30 RF: 5 Brexpiprazole [ 3 mg PO DAILY 30 Days Qty: 30 RF: 0 Dextroamphetami 20 mg PO TID Qty: 30 RF: 0 gabapentin 300 mg Capsule 600 mg PO UD Qty: 60 RF: 0 lamotrigine 100 mg Tablet 100 mg PO BID Qty: 60 RF: 0 aspirin [Ecotrin Low Strength] 81 mg Tablet,Delayed Release (Dr/Ec) 81 mg PO QAM 30 Days Qty: 30 RF: 0 Continued tizanidine 4 mg tablet See Rx Instructions PO TID PRN (Reason: muscle spasticity) Qty: 150 RF: 3 albuterol sulfate [Ventolin HFA] 90 mcg/actuation Hfa Aerosol Inhaler 2 puff INHALATION Q6H PRN (Reason: Shortness Of Breath) RF: 0 prazosin 1 mg capsule 1 mg PO HS RF: 0 Discontinued dextroamphetamine-amphetamine [Adderall] 10 mg tablet 20 mg PO TID RF: 0 lamotrigine 100 mg tablet 100 mg PO BID RF: 0 brexpiprazole [Rexulti] 0.5 mg tablet 3 mg PO QAM RF: 0 alprazolam [Xanax] 0.5 mg tablet 0.5 mg PO TID RF: 0 lisinopril 40 mg tablet 40 mg PO QAM Qty: 30 RF: 5 estradiol 2 mg tablet 2 mg PO DAILY Qty: 30 RF: 5 ibuprofen 800 mg tablet 800 mg PO TID PRN (Reason: Pain) Qty: 90 RF: 3 furosemide [Lasix] 20 mg tablet 20 mg PO QAM PRN (Reason: edema) Qty: 30 RF: 5 mometasone 50 mcg/actuation spray,non-aerosol 1 sprays INTNAS DAILY Qty: 17 RF: 2 ondansetron 4 mg tablet,disintegrating 4 mg PO Q6H PRN (Reason: nausea and vomiting) Qty: 30 RF: 0 gabapentin 300 mg capsule 600 mg PO UD RF: 0 gabapentin 300 mg capsule 900 mg PO HS RF: 0 eletriptan [Relpax] 40 mg tablet 40 mg PO UD MDD 2 DOSES/24HRS PRN (Reason: Migraine Headache) RF: 0 amlodipine 10 mg tablet 10 mg PO DAILY RF: 0 omeprazole 40 mg capsule,delayed release(DR/EC) 40 mg PO DAILY RF: 0 propranolol 80 mg capsule,extended release 24 hr 80 mg PO Q12H RF: 0 zolpidem 10 mg tablet 10 mg PO HS PRN (Reason: Insomnia) RF: 0 Rexulti 3 mg tablet 3 mg PO DAILY RF: 0 Discharge Orders: Discharge Order (Routine); Ordered 12/09/19 Ordered By: Desire Nicole Admission Data Admit Date/Time: 02/02/19 17:54 Attending Provider: Desire Garcia Admit Provider: Eligio Greenfield Primary Care Provider: PCP,NO Other Providers: Kofi Silva ; Desire Garcia Other Interventions: Discharge Summary Assessment (RN) Last Done: 02/02/19 19:14 DC Date/Time DO NOT enter until pt leaves facility: 02/02/19 19:00
[2019-02-02] MEDS ORDERED: PRAZOSIN HCL 1 MG CAP PO SCH (21:00)
[2019-02-02] MEDS ORDERED: lamoTRIgine 100 MG TAB PO SCH (21:00)
[2019-02-02] MEDS ORDERED: GABAPENTIN 300 MG CAP PO SCH (21:00)
[2019-02-02] MEDS ORDERED: ALPRAZolam 0.5 MG TABLET PO SCH (21:00)
[2019-02-02] MEDS ORDERED: NON-FORMULARY MEDICATION (Dextroamphetamine-Amphetamine [Adderall] 20 MG) PO SCH (21:00)
[2019-02-03] MEDS ORDERED: BREXPIPRAZOLE 3 MG PO SCH ×2 (09:00)
[2019-02-03] MEDS ORDERED: GABAPENTIN 300 MG CAP PO SCH (09:00)
[2019-02-03] MEDS ORDERED: FLUTICASONE PROPIONATE NA SPR 16 GM BTL SCH (09:00)
[2019-02-03] MEDS ORDERED: ASPIRIN 81 MG ECTAB PO SCH (09:00)
== END 2019-02-02 19:00 | disposition short-term general hospital (02) | DRG 281 ==
LOC: ED 12:57 → CC 16:41 → 1E 17:54

== ENCOUNTER 2023-06-30 13:04 | Inpatient (IN) ==
--- NOTE | 2023-06-30 13:52 | XRay Report ---
XR chest 1V portable HISTORY: syncope COMPARISON: Chest 02/02/2019. FINDINGS: The cardiac silhouette is top normal in size. No focal lung consolidations to suggest a pne umonia. No evidence for pulmonary edema. There is a small linear scarlike density within the right mi dlung zone. No pleural effusions. No pneumothorax. No acute fractures. IMPRESSION: No acute process. ACT 112: Negative or not required by law. Electronically signed by: Armond Patel M.D. 06/30/2023 1:50 PM
[2023-06-30] MEDS ORDERED: VANCOMYCIN CONSULT ACTIVE PRN (14:02)
--- NOTE | 2023-06-30 14:09 | Emergency Department Note ---
Impression & Plan Sepsis, Leukocytosis, Cellulitis, Hypomagnesemia, Hypocalcemia, COVID-19 ED Provider Note NAME: GLEN DOLAN AGE: 47 SEX: F : 1975 ARRIVES VIA: Ambulance INFORMANT: [Patient] ED PROVIDER(S): [Carlos Fowler MD] CHIEF COMPLAINT: Fever, syncope HISTORY OF PRESENT ILLNESS: The patient is a 47-year-old female whose had 2 days of symptoms. She has noticed fever, weakness, nausea and vomiting, redness to the dorsum of her left foot. The patient has felt faint and almost passed out a few times or maybe passed out for a short timeframe. She did not suffer any trauma or fall to the ground. She presents by ambulance. The patient has had an open area on the plantar aspect of her left foot for 2 months. She was on antibiotics, she has not been on an antibiotic in about a month. She was scheduled to see the wound center but has not yet been seen by them. When the foot erythema began, when the fever began, the patient became concerned for infection. She presents for evaluation. The patient apparently had been at the [facility] ER yesterday, she did leave against their advice. As per EMS, the patient's blood pressure was temporarily in the range of 80 systolic. It did improve after IV fluids. PMHx/PSHx/Social Hx: See Below PHYSICAL EXAM: GENERAL: Patient is in no acute distress. HEENT: No acute trauma, normocephalic atraumatic, mucous membranes moist, no nasal congestion. NECK: No stridor, no adenopathy, no meningismus, trachea is midline. LUNGS: Crackles heard in the right midlung. No wheezing or rhonchi. No respiratory distress. The left lung is clear. HEART: Subtle systolic murmur, regular rate and rhythm. ABDOMEN: Soft, nontender, no peritonitis. EXTREMITIES: No cyanosis. The patient has a 2 cm open lesion to the plantar aspect of the left foot. There is increased warmth to the foot with some surrounding erythema noted to the dorsum of the foot. There is a slight foul odor noted to the wound. A culture was obtained. There is edema to the left lower extremity when compared to the right. NEUROLOGIC: Oriented x 3, no acute motor or sensory deficits, no focal weakness. SKIN: No jaundice, no diaphoresis. DIFFERENTIAL DIAGNOSIS: Bacteremia or sepsis, osteomyelitis, abscess, cellulitis, pneumonia, viral illness, UTI, dehydration, among others. EMERGENCY DEPARTMENT PROCEDURES: MEDICAL DECISION MAKING: There is a significant leukocytosis with a white count of 20,000, this is consistent with infection. There was a normal hemoglobin and platelet count. Potassium slightly low, sodium slightly low. Magnesium and calcium were both moderately low. Alk phos slightly elevated, the remaining liver enzymes were unremarkable. Lactic acid level was not elevated making severe sepsis less likely. COVID test returned positive. Influenza and RSV test were negative. Chest x-ray showed some potential atelectasis, no focal infiltrate or pneumonia. Left foot CT did not show osteomyelitis or abscess. Cellulitis was seen. On exam, the patient did have a left lower extremity cellulitis. A culture of her wound was sent for analysis. The patient was given IV calcium, IV magnesium. She received IV Zosyn as well as IV vancomycin. She was given 2 L of IV saline. The patient presents with fever and flulike symptoms. She was found to have a cellulitis and is showing signs for early sepsis. In addition, she was found to be COVID-positive on our testing. The patient requires a hospital stay and further care/antibiotics. I did speak with case management, the on-call hospitalist was consulted. The patient was told the results of her testing. Prior/Outside records/notes reviewed: Today's EMS notes describing her presentation and transport to this hospital. ECG per my interpretation: Indication was possible sepsis. The ECG shows a normal sinus rhythm with a rate of 72. There is no ST elevation, no PVCs. The QTc is 448. Continuous Cardiac Monitoring per my interpretation: An order was placed for continuous cardiac monitoring. The monitor shows a rate of 73 with normal sinus rhythm. Imaging/x-ray results per my interpretation: Chest x-ray shows some atelectasis to the right midlung. No obvious focal pneumonia. Chronic Medical/Social conditions affecting care: Care/Management discussed with: Case management, the on-call hospitalist. Level of care consideration(s): After review of the information above and other included data: --I believe the patient requires escalation of care to admission Critical Care Note: I have personally spent 49 minutes of critical care time in the direct management of this patient. This includes bedside care, interpretation of diagnostic studies, and testing, discussion with consultants, patient, and family members, and other required patient management activities. This 49 minutes is in excess of all separately billable procedures. DISPOSITION: Admission Past Med/Surg History Medical History History of drug abuse h/o opiate abuse Narcolepsy Tobacco dependence due to cigarettes Vitamin D deficiency Morbid obesity Venous insufficiency Coronary artery clot LAD clot s/p thrombectomy 2018 Bipolar disorder Celiac disease Chronic migraine Chronic low back pain History of thyroiditis Fibromyalgia GERD (gastroesophageal reflux disease) Diabetes mellitus, type 2 hx of, prior to weightloss--no meds, diet controlled Hyperlipidemia Lumbar facet joint syndrome Hypertension Surgical History (Updated 05/12/23 @ 16:09 by Liya Stover MD) History of cardiac cath x3--02/02/19 @ [facility]--no stents, sent [place] [facility] [place], 02/03/19 [place] [facility] [place], 02/05/[place] @ [facility] [place] S/P lumbar laminectomy (12/2019) bilateral L5-S1 laminectomy and partial diskectomy due to lumbar disk disease with cauda equina syndrome History of colonoscopy History of surgery Removal of rectal cyst History of bilateral tubal ligation History of section x 3 History of total abdominal hysterectomy and bilateral salpingo-oophorectomy History of cholecystectomy Family History Grandmother (Maternal) Family history of diabetes mellitus Uncle Family history of diabetes mellitus Other Anxiety Breast cancer Cardiac disorder Depression Hypertension Myocardial infarction No family history of adverse response to anesthesia Social History Smoking Status: Current every day smoker Tobacco Type: Cigarettes Cigarettes Per Day: 20 a day; Second Hand Exposure: No; Do You Dip or Chew Tobacco: No; Hx Alcohol Use: No Hx Substance Use: Yes (medical marijuana) Last Used Substance: Just Prior to Arrival Substance Use Type Other:: medical marijuana Preferred Language: Ecuadorean Communication Ability: Effective Visual Impairment: No Limitations Hearing Ability: Normal Electronics Worker Required: No Beliefs That Will Affect Care: None marital status: single Current Living Situation: Family and Significant Other Current Living Situation Comment: Lives with significan other, son and daughter current occupational status: disabled Feels Safe at Home: Yes Assistive Devices: None Allergies Allergies Allergy/AdvReac Type Severity Reaction Status Date / Time nitrofurantoin Allergy Severe throat Verified 02/06/23 08:35 edema. ketorolac Allergy Intermediate Hot skin Verified 02/06/23 08:35 blotches. meperidine Allergy Intermediate hot skin Verified 02/06/23 08:35 blotches ciprofloxacin AdvReac Mild stomach Verified 02/06/23 08:35 issues Home Meds Home Medications Medication Instructions Recorded Confirmed aspirin 81 mg tablet,delayed 81 mg PO QAM 10/13/20 06/30/23 release (Adult Aspirin Regimen) vitamin B complex 1 cap PO QAM 10/13/20 06/30/23 gabapentin 100 mg capsule 100 mg PO TID 02/06/23 06/30/23 zolpidem 5 mg tablet 5 mg PO HS 02/06/23 06/30/23 dextroamphetamine-amphetamine 20 20 mg PO DAILY 05/10/23 06/30/23 mg tablet (Adderall) buprenorphine 8 mg-naloxone 2 mg 2.5 tab sublingual DAILY 06/30/23 06/30/23 sublingual tablet ferrous sulfate 325 mg (65 mg 325 mg PO DAILY 06/30/23 06/30/23 iron) tablet lamotrigine 100 mg tablet 200 mg PO HS 06/30/23 06/30/23 ondansetron HCl 4 mg tablet 4 mg PO Q8H PRN Nausea 06/30/23 06/30/23 pantoprazole 40 mg tablet,delayed 40 mg PO BID 06/30/23 06/30/23 release Previous Rx's Medication Instructions Recorded albuterol sulfate 90 mcg/actuation 2 puff inhalation Q6H PRN 04/25/21 aerosol inhaler (Ventolin HFA) Shortness Of Breath #18 grams eletriptan 40 mg tablet (Relpax) See Rx Instructions PO .COMPLEX 06/20/21 PRN Migraine Headache #9 tabs estradiol 2 mg tablet 2 mg PO DAILY #90 tabs 06/25/22 lisinopril 20 mg tablet 20 mg PO DAILY #90 tabs 06/25/22 amlodipine 10 mg tablet 10 mg PO DAILY #90 tabs 07/25/22 brexpiprazole 3 mg tablet (Rexulti) 3 mg PO DAILY #30 tabs 08/20/22 clonidine HCl 0.1 mg tablet 0.1 mg PO DAILY #90 tabs 08/30/22 atorvastatin 80 mg tablet (Lipitor) 80 mg PO DAILY #90 tabs 11/26/22 prazosin 1 mg capsule 1 mg PO HS #90 caps 01/16/23 cholecalciferol (vitamin D3) 1,250 50,000 unit PO .COMPLEX #12 caps 01/21/23 mcg (50,000 unit) capsule furosemide 20 mg tablet (Lasix) 20 mg PO DAILY PRN edema #90 tabs 02/06/23 clopidogrel 75 mg tablet (Plavix) 75 mg PO DAILY #90 tabs 04/29/23 tizanidine 4 mg tablet 4 mg PO QID muscle spasticity #360 05/08/23 tabs Shower Chair #1 ea 05/20/23 mometasone 50 mcg/actuation nasal 2 spray intranasal DAILY PRN nasal 06/24/23 spray congestion #54 grams propranolol 80 mg capsule,24 80 mg PO BID #180 caps 06/28/23 hr,extended release Results & Data (ED) Vital Signs Vital Signs - 24 hr 06/30/23 13:05 06/30/23 13:09 06/30/23 13:10 Temperature Temperature Source Pulse Rate 72 69 Pulse Rate from SpO2 Sensor 72 69 Pulse Rhythm Pulse Strength Respiratory Rate 19 16 Respiratory Effort / Characteristics Respiratory Depth Respiratory Pattern Blood Pressure Blood Pressure Mean Pulse Oximetry 91 94 93 Oxygen Delivery Method Room Air Oxygen Flow Rate Sepsis Recent Fever Within 48 Hours Sepsis New/Unexplained Change in Mental Status Sepsis Action Taken by Nursing 06/30/23 13:15 06/30/23 13:20 06/30/23 13:30 Temperature 37.1 C Temperature Source Oral Pulse Rate 81 67 Pulse Rate from SpO2 Sensor 67 Pulse Rhythm Regular Pulse Strength Normal Respiratory Rate 18 17 Respiratory Effort / Characteristics Non-Labored Spontaneous Respiratory Depth Normal Respiratory Pattern Regular Blood Pressure 111/64 118/66 Blood Pressure Mean 79 79 Pulse Oximetry 94 92 Oxygen Delivery Method Room Air Oxygen Flow Rate Sepsis Recent Fever Within 48 Hours Yes Sepsis New/Unexplained Change in Mental Status No Sepsis Action Taken by Nursing No Action Required 06/30/23 13:30 06/30/23 13:34 06/30/23 13:37 Temperature Temperature Source Pulse Rate 65 Pulse Rate from SpO2 Sensor 65 Pulse Rhythm Pulse Strength Respiratory Rate 16 Respiratory Effort / Characteristics Respiratory Depth Respiratory Pattern Blood Pressure Blood Pressure Mean Pulse Oximetry 91 91 Oxygen Delivery Method Room Air Room Air Oxygen Flow Rate Sepsis Recent Fever Within 48 Hours Sepsis New/Unexplained Change in Mental Status Sepsis Action Taken by Nursing 06/30/23 13:56 06/30/23 14:05 06/30/23 14:20 Temperature Temperature Source Pulse Rate 73 63 63 Pulse Rate from SpO2 Sensor 63 Pulse Rhythm Pulse Strength Respiratory Rate 17 18 Respiratory Effort / Characteristics Respiratory Depth Respiratory Pattern Blood Pressure Blood Pressure Mean Pulse Oximetry 85 L 94 Oxygen Delivery Method Room Air Nasal Cannula Oxygen Flow Rate 2 Sepsis Recent Fever Within 48 Hours Sepsis New/Unexplained Change in Mental Status Sepsis Action Taken by Nursing 06/30/23 15:27 Temperature Temperature Source Pulse Rate 61 Pulse Rate from SpO2 Sensor 62 Pulse Rhythm Pulse Strength Respiratory Rate 16 Respiratory Effort / Characteristics Respiratory Depth Respiratory Pattern Blood Pressure 138/75 Blood Pressure Mean 96 Pulse Oximetry 95 Oxygen Delivery Method Nasal Cannula Oxygen Flow Rate 2 Sepsis Recent Fever Within 48 Hours Sepsis New/Unexplained Change in Mental Status Sepsis Action Taken by Correction Medications Current Medication List: was personally reviewed by me Laboratory Data Attestation: I reviewed the patient's lab results. 06/30/23 13:15 06/30/23 13:15 Lab Results 06/30/23 06/30/23 06/30/23 Range/Units 13:10 13:15 14:20 WBC 20.79 H (4.8-10.8) K/ul RBC 4.05 L (4.20-5.40) M/uL Hgb 12.4 (12.0-16.0) g/dl Hct 36.0 L (37.0-47.0) % MCV 88.9 (80.0-100.0) fL MCH 30.6 (25.0-34.0) pg MCHC 34.4 (32.0-36.0) g/dL RDW Std Deviation 45.2 (36.4-46.3) fL RDW Coeff of Ministerio 13.8 (11.5-14.5) % Plt Count 358 (130-400) K/uL MPV 9.3 L (9.4-12.4) fL Immature Gran % (Auto) 1.6 % Neut % (Auto) 88.9 % Lymph % (Auto) 3.8 % Isabella % (Auto) 5.4 % Eos % (Auto) 0.0 % Baso % (Auto) 0.3 % Neut # (Auto) 18.48 H (1.40-6.50) K/uL Lymph # (Auto) 0.79 L (1.20-3.40) K/uL Isabella # (Auto) 1.12 H (0.11-0.59) K/uL Eos # (Auto) 0.00 (0.00-0.50) K/uL Baso # (Auto) 0.06 (0.00-0.20) K/uL Immature Gran # (Auto) 0.34 H (0.01-0.20) K/uL Sodium 135 L (136-145) mmol/L Potassium 3.3 L (3.5-5.1) mmol/L Chloride 104 (98-107) mmol/L Carbon Dioxide 21 (21-32) mmol/L Anion Gap 10 (3-11) BUN 11 (6-23) mg/dl Creatinine 0.77 (0.6-1.2) mg/dl Est Cr Clr Drug Dosing 130.6 ml/min Est GFR ( Amer) 106.6 ml/min Est GFR (Non-Af Amer) 91.9 ml/min BUN/Creatinine Ratio 14.3 (10-20) Glucose 166 H (70-99(Fasting)) mg/dl Lactate 1.1 (0.4-2.0) mmol/L Calcium 7.9 L (8.6-10.3) mg/dl Magnesium 1.2 L (1.7-2.4) mg/dl Total Bilirubin 0.6 (0.2-1.0) mg/dl AST 12 L (13-39) U/L ALT 8 (7-52) U/L Alkaline Phosphatase 122 H (34-104) U/L Total Protein 6.2 (6.0-8.3) gm/dl Albumin 3.1 L (3.4-5.0) gm/dl Globulin 3.1 (2.5-4.0) gm/dl Albumin/Globulin Ratio 1.0 (0.9-2) Procalcitonin 0.05 (0-0.5) ng/ml SARS-CoV-2 (PCR) POSITIVE (Negative) Influenza Type A (PCR) Negative (Neg) Influenza Type B (PCR) Negative (Neg) RSV (RT-PCR) Negative (Neg) Administered Medications Discontinued Medications Piperacillin Sod/Tazobactam Sod (Zosyn) 4.5 gm in 120 mls @ 240 mls/hr IV NOW ONE Stop: 06/30/23 14:31 Last Infusion: 06/30/23 15:25 Dose: Infused Documented By: Admin: 06/30/23 14:33 Dose: 240 mls/hr Documented By: ERICA Vancomycin HCl 2,750 mg/ (Sodium Chloride) 555 mls @ 200 mls/hr IV NOW ONE Stop: 06/30/23 16:48 Last Admin: 06/30/23 14:38 Dose: 200 mls/hr Documented By: ERICA Sodium Chloride (Nss) 1,000 mls @ 999 mls/hr IV .Q1H1M VAISHALI Stop: 06/30/23 16:15 Last Infusion: 06/30/23 16:39 Dose: Infused Documented By: Admin: 06/30/23 14:33 Dose: 999 mls/hr Documented By: Infusion: 06/30/23 14:33 Dose: Infused Documented By: Admin: 06/30/23 14:33 Dose: 999 mls/hr Documented By: ERICA Magnesium Sulfate/Dextrose (Magnesium Sulfate / D5w) 1 gm in 100 mls @ 100 mls/hr IV Q1H VAISHALI Stop: 06/30/23 16:31 Last Admin: 06/30/23 16:46 Dose: 100 mls/hr Documented By: Infusion: 06/30/23 16:21 Dose: Infused Documented By: Admin: 06/30/23 15:21 Dose: 100 mls/hr Documented By: KINGA Calcium Gluconate () 1,000 mg in 60 mls @ 240 mls/hr IV NOW STA Stop: 06/30/23 14:45 Last Infusion: 06/30/23 15:32 Dose: Infused Documented By: Admin: 06/30/23 15:17 Dose: 240 mls/hr Documented By: KINGA Ioversol (Optiray 320 100ml) 95 ml IV ONCE ONE Stop: 06/30/23 15:01 Last Admin: 06/30/23 15:03 Dose: 95 ml Documented By: JULIETA Potassium Chloride (Potassium Chloride Crtab 20 Meq Tabcr) 20 meq PO NOW STA Stop: 06/30/23 14:52 Last Admin: 05/05/24 15:25 Dose: 20 meq Documented By: [facility] [place] Data Radiologist's Impression: Chest X-Ray 06/30/23 13:34 XR chest 1V portable HISTORY: syncope COMPARISON: Chest 02/02/2019. FINDINGS: The cardiac silhouette is top normal in size. No focal lung consolidations to suggest a pneumonia. No evidence for pulmonary edema. There is a small linear scarlike density within the right midlung zone. No pleural effusions. No pneumothorax. No acute fractures. IMPRESSION: No acute process. ACT 112: Negative or not required by law. Electronically signed by: Armond Patel M.D. 06/30/2023 1:[address] 06/30/23 14:02 CT foot LT w con CT DOSE: 152.72 mGy.cm CLINICAL HISTORY: poss osteo or abscess . Left foot swelling. TECHNIQUE: Multiaxial CT images of the left foot were performed following the intravenous administration of contrast to reformatted in the sagittal and coronal planes. A dose lowering technique was utilized adhering to the principles of ALARA. COMPARISON STUDY: Left foot radiograph 01/17/2023. FINDINGS: No acute fracture or dislocation of the left foot. There are tiny anterior and posterior calcaneal spurs noted. Cortical plate and screws fusing the first through third tarsometatarsal joints. The hardware appears intact. No abnormal periprostatic lucency. There is a 2.7 cm skin ulceration at the plantar aspect of the midfoot. This is associated skin thickening and subcutaneous fat stranding/edema. No loculated fluid collections to suggest an abscess. No underlying bony destructive changes to suggest an osteomyelitis. There is also dorsal subcutaneous edema and skin thickening within the left foot. IMPRESSION: 1. A 2.7 cm skin ulceration at the plantar aspect of the midfoot. No underlying bony destruction to suggest an osteomyelitis. 2. There is subcutaneous edema and skin thickening within the dorsal and plantar aspects of the foot suggestive of a cellulitis. 3. No loculated fluid collections to suggest an abscess. 4. No fracture or dislocation within the left foot. 5. Postoperative changes again noted at the first through third tarsometatarsal joints. The hardware appears intact. ACT 112: Negative or not required by law. Electronically signed by: Armond Patel M.D. 06/30/2023 3:18 PM Duplex Scan Lower Extremity Artery 06/30/23 14:49 US arterial duplex left lower extremity CLINICAL HISTORY: non healing foot ulcer COMPARISON STUDY: None. FINDINGS: Normal triphasic waveforms and velocities seen throughout the left lower extremity arterial system. No evidence for arterial occlusion. IMPRESSION: No significant stenosis or occlusion within the left lower extremity arterial system. ACT 112: Negative or not required by law. Electronically signed by: Armond Patel M.D. 06/30/2023 4:33 PM Discharge Plan Visit Data Chief Complaint: Syncope ED Provider: Carlos Fowler Discharge Problem: Sepsis, Leukocytosis, Cellulitis, Hypomagnesemia, Hypocalcemia, COVID-19 Patient Disposition: Admitted As Inpatient Condition: Fair Forms Stand Alone Forms: ProPlan Prescriptions Prescriptions: No Action albuterol sulfate [Ventolin HFA] 90 mcg/actuation HFA aerosol inhaler 2 puff INHALATION Q6H PRN (Reason: Shortness Of Breath) Qty: 18 5RF eletriptan [Relpax] 40 mg tablet See Rx Instructions PO .COMPLEX PRN (Reason: Migraine Headache) Qty: 9 11RF Dose Instruction: 1 tablet PO at onset of migraine. May repeat once after 2 hours. Max is 2 doses/24hours PRN; Rx Instructions: 1 tablet PO at onset of migraine. May repeat once after 2 hours. Max is 2 doses/24hours PRN; estradiol 2 mg tablet 2 mg PO DAILY Qty: 90 3RF lisinopril 20 mg tablet 20 mg PO DAILY Qty: 90 3RF amlodipine 10 mg tablet 10 mg PO DAILY Qty: 90 3RF clonidine HCl 0.1 mg tablet 0.1 mg PO DAILY Qty: 90 3RF atorvastatin [Lipitor] 80 mg tablet 80 mg PO DAILY Qty: 90 3RF prazosin 1 mg capsule 1 mg PO HS Qty: 90 3RF cholecalciferol (vitamin D3) 1,250 mcg (50,000 unit) capsule 50,000 unit PO .COMPLEX Qty: 12 1RF Rx Instructions: 50,000 units orally once weekly; SATURDAY clopidogrel [Plavix] 75 mg tablet 75 mg PO DAILY Qty: 90 3RF tizanidine 4 mg tablet 4 mg PO QID Qty: 360 1RF (DME) Shower Chair Misc See Rx Instructions .Route Qty: 1 0RF Rx Instructions: As directed mometasone 50 mcg/actuation spray,non-aerosol 2 spray INTNAS DAILY PRN (Reason: nasal congestion) Qty: 54 3RF propranolol 80 mg capsule,extended release 24hr 80 mg PO BID Qty: 180 3RF dextroamphetamine-amphetamine [Adderall] 20 mg tablet 20 mg PO DAILY Rexulti 3 mg tablet 3 mg PO DAILY Qty: 30 0RF zolpidem 5 mg tablet 5 mg PO HS furosemide [Lasix] 20 mg tablet 20 mg PO DAILY PRN (Reason: edema) Qty: 90 3RF gabapentin 100 mg capsule 100 mg PO TID aspirin [Adult Aspirin Regimen] 81 mg tablet,delayed release (DR/EC) 81 mg PO QAM vitamin B complex Capsule 1 cap PO QAM buprenorphine-naloxone 8-2 mg tablet, sublingual 2.5 tab SUBLINGUAL DAILY ondansetron HCl 4 mg tablet 4 mg PO Q8H PRN (Reason: Nausea) Rx Instructions: TAKE ONE TABLET BY MOUTH EVERY 8 HOURS NEEDED FOR NAUSEA. pantoprazole 40 mg tablet,delayed release (DR/EC) 40 mg PO BID Rx Instructions: TAKE 1 TABLET TWICE DAILY ferrous sulfate 325 mg (65 mg iron) tablet 325 mg PO DAILY Rx Instructions: 1 tablet daily lamotrigine 100 mg tablet 200 mg PO HS Referrals Referrals: Liya Stover MD [Primary Care Provider] - Discharge Problem: Sepsis Qualifiers: Sepsis type: sepsis due to unspecified organism Sepsis acute organ dysfunction status: without acute organ dysfunction Qualified Code(s): A41.9 - Sepsis, unspecified organism Leukocytosis Qualifiers: Leukocytosis type: unspecified Qualified Code(s): D72.829 - Elevated white blood cell count, unspecified Cellulitis Qualifiers: Site of cellulitis: extremity Site of cellulitis of extremity: lower extremity Laterality: left Qualified Code(s): L03.116 - Cellulitis of left lower limb
[2023-06-30 14:27] LABS: Basophils # (auto) 0.06 K/uL (0.00-0.20); Basophils % (auto) 0.3 %; Hemoglobin 12.4 g/dl (12.0-16.0); Immature Granulocytes # (auto) 0.34 K/uL (0.01-0.20); Immature Granulocytes % (auto) 1.6 %; Lymphocytes # (auto) 0.79 K/uL (1.20-3.40); Lymphocytes % (auto) 3.8 %; Mean Corpuscular Hemoglobin 30.6 pg (25.0-34.0); Mean Corpuscular Hgb Conc 34.4 g/dL (32.0-36.0); Mean Corpuscular Volume 88.9 fL (80.0-100.0); Mean Platelet Volume 9.3 fL (9.4-12.4); Monocytes # (auto) 1.12 K/uL (0.11-0.59); Monocytes % (auto) 5.4 %; Neutrophils # (auto) 18.48 K/uL (1.40-6.50); Neutrophils % (auto) 88.9 %; Platelet Count 358 K/uL (130-400); RDW Coefficient of Variation 13.8 % (11.5-14.5); RDW Standard Deviation 45.2 fL (36.4-46.3); Red Blood Count 4.05 M/uL (4.20-5.40); White Blood Count 20.79 K/ul (4.8-10.8)
[2023-06-30 14:30] LABS: Albumin Level 3.1 gm/dl (3.4-5.0); BUN Creatinine Ratio 14.3 (10-20); Bilirubin,Total 0.6 mg/dl (0.2-1.0); Calcium 7.9 mg/dl (8.6-10.3); Creatinine Clr Calc Pharmacy 130.6 ml/min; Est GFR (African American) 106.6 ml/min; Est GFR (Non-African American) 91.9 ml/min; Globulin 3.1 gm/dl (2.5-4.0); Magnesium 1.2 mg/dl (1.7-2.4); Potassium 3.3 mmol/L (3.5-5.1); Total Protein 6.2 gm/dl (6.0-8.3)
[2023-06-30] MEDS: SODIUM CHLORIDE 0.9% 1,000 ML IV SCH (14:33)
[2023-06-30] MEDS: PIPERACILLIN/TAZOBACTAM 4.5 GM/120 ML BAG IV ONE (14:33)
[2023-06-30] MEDS: VANCOMYCIN HCL 2,750 MG in SODIUM CHLORIDE 0.9% 500 ML IV ONE (14:38)
[2023-06-30 14:40] LABS: Influenza A virus by PCR Negative (Neg); Influenza B virus by PCR Negative (Neg); RSV by PCR Negative (Neg); SARS CoV2 RNA(COVID-19) Ceph POSITIVE (Negative)
--- NOTE | 2023-06-30 14:43 | History & Physical Report ---
Date of Service June 30, 2023 Assessment & Plan (1) Left leg cellulitis: Plan: Picture in H&P for comparison - from foot to just below knee anteriorly, suspected source from wound on bottom of foot Daptomycin (given increased BMI) and Zosyn Follow up wound and blood cultures (2) Wound of left foot: Plan: Pressure ulcer US arterial doppler to assess ability of wound healing Non weight bearing on this side Consult podiatry Wound care nurse consult (3) COVID-19: Plan: Suspected true infection with 2 days of cold symptoms Mild hypoxia only occurred while falling asleep and she likely has some undiagnosed BRODY vs obesity hypoventilation rather than the hypoxia being COVID induced Only risk factor is obesity and in setting of acute cellulitis will defer any treatment for COVID Guaifenesin/dextromethorphan PRN Incentive spirometry (4) Hypomagnesemia: Plan: Mg level 1.2 on admission. Total 4g IV Mg sulfate. Repeat level in AM (5) Celiac disease: (6) Morbid obesity: (7) Bipolar disorder: (8) Coronary artery clot: (9) GERD (gastroesophageal reflux disease): (10) Narcolepsy: Plan Chronic medical conditions listed above - no change to her usual medications VTE Prophylaxis - Lovenox 40 mg SQ BID (increased dose due to high BMI) Diet - heart healthy, gluten free Disposition - observation to med/tele Admission and Anticipated Discharge Date Admission Date: June 30, 2023 History of Present Illness Chief Complaint: Left foot erythema and swelling Primary Care Provider: Liya Stover MD Mary Jo Michel is a 47-year-old female who presents to the ER with a left foot infection. She has a chronic left plantar foot wound for several months treated with various antibiotics and prior ORIF for Lisfranc midfoot injury in 2021. She has declined referral to wound care previously but at her last PCP appointment she has been open to going. Yesterday her foot became acutely swollen and erythema tracking up her leg. She was seen in the emergency room at [facility] yesterday and left AGAINST MEDICAL ADVICE as she knew one of the nurses and she did not want this nurse to know about her. No fever or chills. Associated generalized weakness and fatigue. 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 Allergies Allergy/AdvReac Type Severity Reaction Status Date / Time nitrofurantoin Allergy Severe throat Verified 02/06/23 08:35 edema. ketorolac Allergy Intermediate Hot skin Verified 02/06/23 08:35 blotches. meperidine Allergy Intermediate hot skin Verified 02/06/23 08:35 blotches ciprofloxacin AdvReac Mild stomach Verified 02/06/23 08:35 issues Home Medications Medication Instructions Recorded Confirmed Type aspirin 81 mg tablet,delayed 81 mg PO QAM 10/13/20 06/30/23 History release (Adult Aspirin Regimen) vitamin B complex 1 cap PO QAM 10/13/20 06/30/23 History albuterol sulfate 90 mcg/actuation 2 puff inhalation Q6H PRN 04/25/21 06/30/23 Rx aerosol inhaler (Ventolin HFA) Shortness Of Breath #18 grams eletriptan 40 mg tablet (Relpax) See Rx Instructions PO .COMPLEX 06/20/21 06/30/23 Rx PRN Migraine Headache #9 tabs estradiol 2 mg tablet 2 mg PO DAILY #90 tabs 06/25/22 06/30/23 Rx lisinopril 20 mg tablet 20 mg PO DAILY #90 tabs 06/25/22 06/30/23 Rx amlodipine 10 mg tablet 10 mg PO DAILY #90 tabs 07/25/22 06/30/23 Rx brexpiprazole 3 mg tablet (Rexulti) 3 mg PO DAILY #30 tabs 08/20/22 06/30/23 Rx clonidine HCl 0.1 mg tablet 0.1 mg PO DAILY #90 tabs 08/30/22 06/30/23 Rx atorvastatin 80 mg tablet (Lipitor) 80 mg PO DAILY #90 tabs 11/26/22 06/30/23 Rx prazosin 1 mg capsule 1 mg PO HS #90 caps 01/16/23 06/30/23 Rx cholecalciferol (vitamin D3) 1,250 50,000 unit PO .COMPLEX #12 caps 01/21/23 06/30/23 Rx mcg (50,000 unit) capsule furosemide 20 mg tablet (Lasix) 20 mg PO DAILY PRN edema #90 tabs 02/06/23 06/30/23 Rx gabapentin 100 mg capsule 100 mg PO TID 02/06/23 06/30/23 History zolpidem 5 mg tablet 5 mg PO HS 02/06/23 06/30/23 History clopidogrel 75 mg tablet (Plavix) 75 mg PO DAILY #90 tabs 04/29/23 06/30/23 Rx tizanidine 4 mg tablet 4 mg PO QID muscle spasticity #360 05/08/23 06/30/23 Rx tabs dextroamphetamine-amphetamine 20 20 mg PO DAILY 05/10/23 06/30/23 History mg tablet (Adderall) Shower Chair #1 ea 05/20/23 Rx mometasone 50 mcg/actuation nasal 2 spray intranasal DAILY PRN nasal 06/24/23 06/30/23 Rx spray congestion #54 grams propranolol 80 mg capsule,24 80 mg PO BID #180 caps 06/28/23 06/30/23 Rx hr,extended release buprenorphine 8 mg-naloxone 2 mg 2.5 tab sublingual DAILY 06/30/23 06/30/23 History sublingual tablet ferrous sulfate 325 mg (65 mg 325 mg PO DAILY 06/30/23 06/30/23 History iron) tablet lamotrigine 100 mg tablet 200 mg PO HS 06/30/23 06/30/23 History ondansetron HCl 4 mg tablet 4 mg PO Q8H PRN Nausea 06/30/23 06/30/23 History pantoprazole 40 mg tablet,delayed 40 mg PO BID 06/30/23 06/30/23 History release Past Med/Surg History Medical History History of drug abuse h/o opiate abuse Narcolepsy Tobacco dependence due to cigarettes Vitamin D deficiency Morbid obesity Venous insufficiency Coronary artery clot LAD clot s/p thrombectomy 2018 Bipolar disorder Celiac disease Chronic migraine Chronic low back pain History of thyroiditis Fibromyalgia GERD (gastroesophageal reflux disease) Diabetes mellitus, type 2 hx of, prior to weightloss--no meds, diet controlled Hyperlipidemia Lumbar facet joint syndrome Hypertension Surgical History (Updated 05/12/23 @ 16:09 by Liya Stover MD) History of cardiac cath x3--02/02/19 @ [facility]--no stents, sent to [facility], 02/03/19 @ [facility], 02/05/19 @ [facility] S/P lumbar laminectomy (12/2019) bilateral L5-S1 laminectomy and partial diskectomy due to lumbar disk disease with cauda equina syndrome History of colonoscopy History of surgery Removal of rectal cyst History of bilateral tubal ligation History of section x 3 History of total abdominal hysterectomy and bilateral salpingo-oophorectomy History of cholecystectomy Family History Grandmother (Maternal) Family history of diabetes mellitus Uncle Family history of diabetes mellitus Other Anxiety Breast cancer Cardiac disorder Depression Hypertension Myocardial infarction No family history of adverse response to anesthesia Social History Smoking Status: Current every day smoker Tobacco Type: Cigarettes Cigarettes Per Day: 20 a day; Second Hand Exposure: No; Do You Dip or Chew Tobacco: No; Hx Alcohol Use: No Hx Substance Use: Yes (medical marijuana) Last Used Substance: Just Prior to Arrival Substance Use Type Other:: medical marijuana Preferred Language: Cymraes Communication Ability: Effective Visual Impairment: No Limitations Hearing Ability: Normal Oncology Specialist Required: No Beliefs That Will Affect Care: None marital status: single Current Living Situation: Family and Significant Other Current Living Situation Comment: Lives with significan other, son and daughter current occupational status: disabled Feels Safe at Home: Yes Assistive Devices: None Review of Systems 2 Review of Systems: All systems reviewed & are unremarkable except as noted in HPI & below Physical Exam 2 Constitutional: well developed; + not well nourished and no acute distress Eyes: + anicteric sclerae; normal pupil size ENMT: external ear and nose normal, oropharynx normal Respiratory: normal respiratory effort, lungs clear to auscultation Cardiovascular: RRR, no murmur, no edema Vessels: + posterior tibial pulses abnormal (left not palpable) and + dorsalis pedis pulses abnormal (left not palpable) Extremities: normal capillary refill (left toes) Gastrointestinal (Abdomen): normal bowel sounds, soft, nontender, no hepatosplenomegaly Skin: Erythema and swelling tracking from left foot to just below left knee, non pus filled blister on 1st toe dorsal aspect 2cm diameter circular stage 4 pressure u lcer plantar aspect of left foot Neurologic: moves all extremities and awake; no focal motor deficits and not confused Psychiatric: A+Ox3, euthymic affect (drowsy, falling asleep easily) Results & Data Results & Data Vital Signs (Past 12 Hours) Vital Signs Temp Pulse Resp BP Pulse Ox O2 Del Method 05/05/24 13:56 73 06/30/23 13:37 91 Room Air 06/30/23 13:34 Room Air 06/30/23 13:30 65 16 91 06/30/23 13:30 118/66 06/30/23 13:20 67 17 92 06/30/23 13:10 69 16 93 06/30/23 13:09 72 19 94 06/30/23 13:05 91 Room Air 06/30/23 13:04 37.1 C 81 18 111/64 94 Room Air Laboratory Results Abnormal lab results 06/30/23 Range/Units 13:15 WBC 20.79 H (4.8-10.8) K/ul RBC 4.05 L (4.20-5.40) M/uL Hct 36.0 L (37.0-47.0) % MPV 9.3 L (9.4-12.4) fL Neut # (Auto) 18.48 H (1.40-6.50) K/uL Lymph # (Auto) 0.79 L (1.20-3.40) K/uL [place] # (Auto) 1.12 H (0.11-0.59) K/uL Immature Gran # (Auto) 0.34 H (0.01-0.20) K/uL Sodium 135 L (136-145) mmol/L Potassium 3.3 L (3.5-5.1) mmol/L Glucose 166 H (70-99(Fasting)) mg/dl Calcium 7.9 L (8.6-10.3) mg/dl Magnesium 1.2 L (1.7-2.4) mg/dl AST 12 L (13-39) U/L Alkaline Phosphatase 122 H (34-104) U/L Albumin 3.1 L (3.4-5.0) gm/dl Diagnostic Findings XR chest 1V portable HISTORY: syncope COMPARISON: Chest 02/02/2019. FINDINGS: The cardiac silhouette is top normal in size. No focal lung consolidations to suggest a pneumonia. No evidence for pulmonary edema. There is a small linear scarlike density within the right midlung zone. No pleural effusions. No pneumothorax. No acute fractures. IMPRESSION: No acute process. CT foot LT w con CT DOSE: 152.72 mGy.cm CLINICAL HISTORY: poss osteo or abscess . Left foot swelling. TECHNIQUE: Multiaxial CT images of the left foot were performed following the intravenous administration of contrast to reformatted in the sagittal and coronal planes. A dose lowering technique was utilized adhering to the principles of ALARA. COMPARISON STUDY: Left foot radiograph 01/17/2023. FINDINGS: No acute fracture or dislocation of the left foot. There are tiny anterior and posterior calcaneal spurs noted. Cortical plate and screws fusing the first through third tarsometatarsal joints. The hardware appears intact. No abnormal periprostatic lucency. There is a 2.7 cm skin ulceration at the plantar aspect of the midfoot. This is associated skin thickening and subcutaneous fat stranding/edema. No loculated fluid collections to suggest an abscess. No underlying bony destructive changes to suggest an osteomyelitis. There is also dorsal subcutaneous edema and skin thickening within the left foot. IMPRESSION: 1. A 2.7 cm skin ulceration at the plantar aspect of the midfoot. No underlying bony destruction to suggest an osteomyelitis. 2. There is subcutaneous edema and skin thickening within the dorsal and plantar aspects of the foot suggestive of a cellulitis. 3. No loculated fluid collections to suggest an abscess. 4. No fracture or dislocation within the left foot. 5. Postoperative changes again noted at the first through third tarsometatarsal joints. The hardware appears intact. Medications Administered ER medications given: Zosyn 4.5 g IV Vancomycin 2750 mg IV Normal saline 1 L bolus Magnesium sulfate 1 g IV x 2 Calcium gluconate 1 g IV ECG Rate (beats per minute): 72 Rhythm: normal sinus Findings: no acute ischemic change Comparison ECG Date: from (February 02, 2019) Change: the following changes noted (ST elevation no longer detected in anterior leads) Code Status & VTE Plan Code Status Full VTE Prophylaxis Plan VTE Prophylaxis will be ordered: Yes PG Care Time/CCT Total # of Minutes Spent Total Time Spent with Patient: Total time spent is greater than 50% in coordination of care (as documented) at patient's floor/unit and/or counseling patient: Coding Level of Care Code 39293 INT INP/OBS CARE 3/75MIN Diagnoses Left leg cellulitis L03.116 Wound of left foot S91.302A COVID-19 U07.1 Hypomagnesemia E83.42 Celiac disease K90.0 Morbid obesity E66.01 Bipolar disorder F31.9 Coronary artery clot I24.0 GERD (gastroesophageal reflux disease) K21.9 Narcolepsy G47.419
[2023-06-30] MEDS: OPTIRAY 320 100ml IV ONE (15:03)
[2023-06-30] MEDS: CALCIUM GLUCONATE 1,000 MG/60 ML BAG IV STA (15:17)
--- NOTE | 2023-06-30 15:20 | CT Scan Report ---
CT foot LT w con CT DOSE: 152.72 mGy.cm CLINICAL HISTORY: poss osteo or abscess . Left foot swelling. TECHNIQUE: Multiaxial CT images of the left foot were performed following the intravenous administrat ion of contrast to reformatted in the sagittal and coronal planes. A dose lowering technique was uti lized adhering to the principles of ALARA. COMPARISON STUDY: Left foot radiograph 01/17/2023. FINDINGS: No acute fracture or dislocation of the left foot. There are tiny anterior and posterior ca lcaneal spurs noted. Cortical plate and screws fusing the first through third tarsometatarsal joints. The hardware appears intact. No abnormal periprostatic lucency. There is a 2.7 cm skin ulceration at the plantar aspect of the midfoot. This is associated skin thickening and subcutaneous fat stranding /edema. No loculated fluid collections to suggest an abscess. No underlying bony destructive changes to suggest an osteomyelitis. There is also dorsal subcutaneous edema and skin thickening within the l eft foot. IMPRESSION: 1. A 2.7 cm skin ulceration at the plantar aspect of the midfoot. No underlying bony destruction to s uggest an osteomyelitis. 2. There is subcutaneous edema and skin thickening within the dorsal and plantar aspects of the foot suggestive of a cellulitis. 3. No loculated fluid collections to suggest an abscess. 4. No fracture or dislocation within the left foot. 5. Postoperative changes again noted at the first through third tarsometatarsal joints. The hardware appears intact. ACT 112: Negative or not required by law. Electronically signed by: Armond Patel M.D. 06/30/2023 3:18 PM
[2023-06-30] MEDS: MAGNESIUM SULFATE / D5W 1 GM/100 ML BAG IV SCH ×2 (15:21→19:51)
[2023-06-30] MEDS: POTASSIUM CHLORIDE CRTAB 20 MEQ TABCR PO STA (15:25)
--- NOTE | 2023-06-30 16:35 | Ultrasound Report ---
US arterial duplex left lower extremity CLINICAL HISTORY: non healing foot ulcer COMPARISON STUDY: None. FINDINGS: Normal triphasic waveforms and velocities seen throughout the left lower extremity arterial system. No evidence for arterial occlusion. IMPRESSION: No significant stenosis or occlusion within the left lower extremity arterial system. ACT 112: Negative or not required by law. Electronically signed by: Armond Patel M.D. 06/30/2023 4:33 PM
[2023-06-30] MEDS ORDERED: tiZANidine HCL 4 MG TABLET PO PRN (18:17)
[2023-06-30] MEDS ORDERED: ALBUTEROL HFA 8 GM INHALER INH PRN (18:17)
[2023-06-30] MEDS ORDERED: guaiFENesin/DEXTROM SYRUP 200MG/20MG 10ML UDC PO PRN (18:17)
[2023-06-30 18:29] LABS: Appearance Urine Clear (Clear); Bilirubin Urine Negative (Negative); Blood Urine Negative (Negative); Color Urine Yellow; Glucose Urine UA Negative (Negative); Ketones Urine Negative (Negative); Leukocyte Esterase Urine Negative (Negative); Nitrite Urine Negative (Negative); Protein Urine Negative (Negative); Specific Gravity Urine 1.035 (1.000-1.030); Urobilinogen Urine Negative (Negative); pH Urine 6.5 (4.5-7.5)
[2023-06-30] MEDS ORDERED: FLUTICASONE PROPIONATE NA SPR 16 GM BTL NAE PRN (18:51)
[2023-06-30] MEDS: POTASSIUM CHLORIDE CRTAB 20 MEQ TABCR PO ONE (19:12)
[2023-06-30] MEDS: MAGNESIUM SULFATE 1GM / D5W BAG IV ONE (19:14)
[2023-06-30] MEDS: PIPERACILLIN/TAZOBACTAM 4.5 GM in DEXTROSE 5% MINI-B 100 ML IV SCH (20:48)
[2023-06-30] MEDS: DAPTOmycin 550 MG in SYRINGE 0 ML IV SCH (20:50)
[2023-06-30] MEDS: ACETAMINOPHEN 325 MG TAB PO PRN (21:00)
[2023-06-30] MEDS: ENOXAPARIN INJ 40 MG/0.4 ML SYR SQ SCH (21:50)
[2023-06-30] MEDS: GABAPENTIN 100 MG CAP PO SCH (21:51)
[2023-06-30] MEDS: lamoTRIgine 100 MG TAB PO SCH (21:51)
[2023-06-30] MEDS: PRAZOSIN HCL 1 MG CAP PO SCH (21:52)
[2023-06-30] MEDS: PROPRANOLOL HCL LA 80 MG CAPCR PO SCH (21:52)
[2023-06-30] MEDS: PANTOprazole 40 MG TAB PO SCH (21:52)
[2023-06-30] MEDS: ZOLPIDEM TARTRATE 5 MG TAB PO SCH (22:06)
--- NOTE | 2023-06-30 23:13 | Electrocardiogram Report ---
Test Reason : Blood Pressure : / mmHG Vent. Rate : 072 BPM Atrial Rate : 072 BPM P-R Int : 170 ms QRS Dur : 090 ms QT Int : 410 ms P-R-T Axes : 048 027 044 degrees QTc Int : 448 ms Normal sinus rhythm Normal ECG When compared with ECG of 02-FEB-2019 18:29, ST no longer elevated in Anterior leads Confirmed by Trip Law ([id number]) on 06/30/2023 11:13:35 PM Referred By: Confirmed By:Trip Law
[2023-07-01] MEDS: IBUPROFEN 200 MG/10 ML UDC PO STA (04:10)
--- NOTE | 2023-07-01 07:26 | Hospitalist Progress Note ---
Date of Service July 01, 2023 Assessment & Plan (1) Left leg cellulitis: Plan: 47 y/o with DM and HTN, bilateral lymphedema, previous L foot surgery, chronic plantar foot ulcer admitted with severe cellulitis of L foot tracking up fritz, WBC 21K and mild COVID She last saw Dr. Dc a year ago and doesn't want to see him because she is not satisfied with the postoperative appearance of her L foot. Plantar foot wound is chronic (present 12/2022) treated with metronidazole and keflex, healed over, opened up again late March. Has been followed by primary care for this recently. States she was referred to wound center in the past but they would not see her without Dr. Dc following because it was a surgical wound? Wound does drain frequently. Recent abx in database including Amox-clav for 7 days on 03/07 and keflex for 10 days on 05/09 Picture in H&P for comparison - from foot to just below knee anteriorly, source from wound on bottom of foot. Appears similar on today's exam. WBC improved but still elevated. Cellulitis is severe and warrants ongoing IV antibiotics. Wound cx with group C strep. Likely polymicrobial infection. Will stop daptomycin and continue pip-tazo CT L foot reviewed - cellulitis, no fracture, no bony changes consistent with osteomyelitis. Will add on CRP and ESR. If ESR significantly elevated consider MRI to evaluate better for OM. Consulted podiatry but Dr. Segal does not round here any more and Dr Sorensen unable to see her and not enrolled with her insurance. If evidence of OM may need ortho consult or if not, could follow up outpatient with table keeper. Wound nurse consulted. Follow up wound and blood cultures (2) Wound of left foot: Plan: Pressure ulcer plantar L foot. Hx surgery on this foot (2021?) US arterial doppler to assess ability of wound healing - negative for evidence of vascular disease CT of this foot on admission - 2.7 cm plantar midfoot ulcer, cellulitis, no abscess or changes compatible with OM, no abscess, hardware at 1st-3rd TMTs Non weight bearing on this side -see above (3) COVID-19: Plan: Suspected true infection with 2 days of cold symptoms Mild hypoxia only occurred while falling asleep and she likely has some undiagnosed BRODY vs obesity hypoventilation rather than the hypoxia being COVID induced Only risk factor is obesity and in setting of acute cellulitis will defer any treatment for COVID Guaifenesin/dextromethorphan PRN Incentive spirometry (4) Hypomagnesemia: Plan: Mg level 1.2 on admission. Total 4g IV Mg sulfate. Repeat level today 2.0 (5) Celiac disease: Plan: gluten free diet (6) Morbid obesity: Plan: BMI 42. As outpatient working on getting on GLP-1 agonist (7) Bipolar disorder: Plan: cont lamotrigine (8) Coronary artery clot: Plan: --Left main thrombus with ACS post aspiration thrombectomy LM at [facility] 01/2019 -last seen by Dr. Greenfield 06/21/20 Cont ASA/Plavix, atorvastatin (9) GERD (gastroesophageal reflux disease): Plan: PPI (10) Narcolepsy: Plan: High risk for BRODY Reportedly on adderall for this Plan HTN - cont amlodipine, lisinopril, clonidine States she currently does not have diabetes OUD - cont suboxone. In assisted remission VTE Prophylaxis - Lovenox 40 mg SQ BID Admission and Anticipated Discharge Date Admission Date: June 30, 2023 Subjective no pain from left foot which is insensate L foot erythema and pink tracking above mid-calf maybe slightly better than last night mild covid sx - cough, malaise Physical Exam 2 Physical Exam: PHYSICAL EXAMINATION Last 24h vital signs reviewed, see documentation in flowsheet General: comfortable appearing, no distress, sitting in bed working on her laptop throughout HEENT: Normocephalic, atraumatic, pupils round and equal, sclerae anicteric, no conjunctival injection, moist mucus membranes Lungs: Normal respiratory effort. Clear to auscultation bilaterally. No RRW. cough Heart: Regular rate and rhythm, no murmurs. No JVD Abdomen: Soft, nontender, nondistended. Bowel sounds present. Extremities: Warm, dry, well-perfused. left foot with postoperative deformity well-healed incision on dorsum, very severe cellulitis of forefoot with dark erythema induration edema blister present on great toe, plantar surface with 2-3 cm ulcer that is deep appearing no current drainage. Left calf with patchy pink erythema to up above the mid calf but not extending to the knee Neuro: Alert and oriented x 4, face symmetric, moves 4 extremities well Psych: Normal affect and behavior Results & Data Results & Data Vital Signs (Past 12 Hours) Vital Signs Temp Pulse Pulse Pulse Resp BP BP 07/01/23 03:47 36.5 C 57 L 16 06/30/23 23:17 36.7 C 68 18 90/56 L 06/30/23 23:16 65 06/30/23 20:30 66 18 123/65 06/30/23 20:03 06/30/23 19:41 68 22 125/70 BP Pulse Ox Pulse Ox O2 Del Method O2 Del Method 07/01/23 03:47 102/66 96 Room Air 06/30/23 23:17 96 Room Air 06/30/23 23:16 06/30/23 20:30 95 Room Air 06/30/23 20:03 96 Room Air 06/30/23 19:41 98 Room Air Laboratory Results 07/01/23 06:42 07/01/23 06:42 PG Care Time/CCT Total # of Minutes Spent Total Time Spent with Patient: Total time spent is greater than 50% in coordination of care (as documented) at patient's floor/unit and/or counseling patient: Coding Level of Care Code 36735 SUB INP/OBS CARE 3/50MIN Diagnoses Left leg cellulitis L03.116 Wound of left foot S91.302A COVID-19 U07.1 Hypomagnesemia E83.42 Celiac disease K90.0 Morbid obesity E66.01 Bipolar disorder F31.9 Coronary artery clot I24.0 GERD (gastroesophageal reflux disease) K21.9 Narcolepsy G47.419
[2023-07-01 07:28] LABS: Basophils # (auto) 0.06 K/uL (0.00-0.20); Basophils % (auto) 0.4 %; Eosinophils # (auto) 0.04 K/uL (0.00-0.50); Eosinophils % (auto) 0.2 %; Hematocrit (blood only) 34.2 % (37.0-47.0); Hemoglobin 11.4 g/dl (12.0-16.0); Immature Granulocytes # (auto) 0.37 K/uL (0.01-0.20); Immature Granulocytes % (auto) 2.2 %; Lymphocytes # (auto) 0.99 K/uL (1.20-3.40); Lymphocytes % (auto) 5.9 %; Mean Corpuscular Hemoglobin 29.8 pg (25.0-34.0); Mean Corpuscular Hgb Conc 33.3 g/dL (32.0-36.0); Mean Corpuscular Volume 89.5 fL (80.0-100.0); Mean Platelet Volume 9.3 fL (9.4-12.4); Monocytes # (auto) 0.51 K/uL (0.11-0.59); Neutrophils # (auto) 14.88 K/uL (1.40-6.50); Neutrophils % (auto) 88.3 %; Platelet Count 329 K/uL (130-400); RDW Coefficient of Variation 14.2 % (11.5-14.5); RDW Standard Deviation 45.8 fL (36.4-46.3); Red Blood Count 3.82 M/uL (4.20-5.40); White Blood Count 16.85 K/ul (4.8-10.8)
[2023-07-01 07:33] LABS: Albumin Level 2.9 gm/dl (3.4-5.0); Bilirubin,Total 0.5 mg/dl (0.2-1.0); Calcium 7.6 mg/dl (8.6-10.3); Potassium 3.7 mmol/L (3.5-5.1)
[2023-07-01 07:39] LABS: BUN Creatinine Ratio 22.2 (10-20); Creatinine Clr Calc Pharmacy 186.3 ml/min; Est GFR (African American) 130.2 ml/min; Est GFR (Non-African American) 112.4 ml/min; Globulin 2.9 gm/dl (2.5-4.0); Total Protein 5.8 gm/dl (6.0-8.3)
[2023-07-01] MEDS: lisinopril 20 MG TAB PO SCH (08:14)
[2023-07-01] MEDS: FERROUS SULFATE 325 MG TAB PO SCH (08:15)
[2023-07-01] MEDS: cloNIDine HCL 0.1 MG TAB PO SCH (08:15)
[2023-07-01] MEDS: CLOPIDOGREL BISULFATE 75 MG TAB PO SCH (08:15)
[2023-07-01] MEDS: ASPIRIN 81 MG ECTAB PO SCH (08:15)
[2023-07-01] MEDS: estradioL 1 MG TAB PO SCH (08:15)
[2023-07-01] MEDS: amLODIPine BESYLATE 5 MG TAB PO SCH (08:15)
[2023-07-01] MEDS: VITAMIN B COMPLEX TAB PO SCH (08:15)
[2023-07-01] MEDS: BUPRENORPHINE/NALOXONE 8/2 MG TAB SL SCH (08:27)
[2023-07-01] MEDS ORDERED: DEXTROAMPHETAMINE/AMPHETAMINE IR 20 MG TAB PO SCH (09:00)
[2023-07-01] MEDS ORDERED: BREXPIPRAZOLE 3 MG PO SCH (09:00)
--- NOTE | 2023-07-01 21:54 | Magnetic Resonance Report ---
MR foot LT w/o con CLINICAL HISTORY: L plantar draining wound poss osteomyelitis TECHNIQUE: Multisequence, multiplanar MR images of the left foot were obtained without contrast COMPARISON: Comparison is made to left foot CT 06/30/2023 FINDINGS: Orthopedic hardware is seen. No bony edema is seen to suggest acute osteomyelitis. Prominent degenera tive changes are seen in the joints of the midfoot. Extensive soft tissue edema is seen without drain able fluid collection. IMPRESSION: 1. Findings compatible with extensive cellulitis but no evidence of abscess or osteomyelitis. 2. Postsurgical and degenerative changes are seen in the bones of the foot. ACT 112: Negative or not required by law. Electronically signed by: Adriano Mullen M.D. 07/01/2023 9:53 PM
[2023-07-02 06:45] LABS: Hematocrit (blood only) 37.9 % (37.0-47.0); Hemoglobin 12.8 g/dl (12.0-16.0); Mean Corpuscular Hemoglobin 29.5 pg (25.0-34.0); Mean Corpuscular Hgb Conc 33.8 g/dL (32.0-36.0); Mean Corpuscular Volume 87.3 fL (80.0-100.0); Mean Platelet Volume 8.8 fL (9.4-12.4); Platelet Count 356 K/uL (130-400); RDW Coefficient of Variation 14.1 % (11.5-14.5); RDW Standard Deviation 45.6 fL (36.4-46.3); Red Blood Count 4.34 M/uL (4.20-5.40); White Blood Count 17.28 K/ul (4.8-10.8)
[2023-07-02 06:59] LABS: BUN Creatinine Ratio 11.9 (10-20); Creatinine Clr Calc Pharmacy 170.5 ml/min; Est GFR (African American) 126.5 ml/min; Est GFR (Non-African American) 109.1 ml/min; Magnesium 1.7 mg/dl (1.7-2.4); Potassium 3.6 mmol/L (3.5-5.1)
--- NOTE | 2023-07-02 12:12 | Hospitalist Progress Note ---
Date of Service July 02, 2023 Assessment & Plan (1) Left leg cellulitis: Plan: Patient with chronic bilateral lymphedema LLE > RLE; previous L foot surgery;, chronic plantar foot ulcer on left x 9-12 months in duration. Wound cx with group C strep, but there could be polymicrobial infection of the foot. pip-tazo CT L foot - no osteomyelitis. CRP and sed rate are both elevated but certainly the severity of the cellulitis can cause this alone. COVID can also increase the crp. Unfortunately Dr. Iban Segal, podiatry, no longer practicing at [facility]. Dr Sorensen unable to see her and not enrolled with her insurance. Appreciate orthotics consult for placement of off-loading walking boot. Wound nurse consult appreciated. Blood cx's negative to date. Currently on zosyn; may be able to change to IV unasyn as no other specific pathogens have grown from wound cx. (2) Wound of left foot: Plan: Pressure ulcer plantar L foot. Hx surgery on this foot (2021?) US arterial doppler LLE with normal arterial blood flow. CT of this foot on admission - 2.7 cm plantar midfoot ulcer, associated cellulitis Fortunately no abscess or obvious osteomyelitis Hardware at 1st-3rd TMTs Allow weight-bearing with walking boot/shoe in place only Consider checking doppler of LLE to r/o DVT given the severity of her edema. (3) COVID-19: Plan: Mild symptoms Defer on steroids - no O2 requirement, minimal cough Defer on Remdesivir as well Add bronchodilators for cough Cont COVID isolation (4) Hypomagnesemia: Plan: severely low at admission replaced - now resolved (5) Celiac disease: Plan: cont gluten free diet no issues (6) Morbid obesity: Plan: BMI 42. (7) Bipolar disorder: Plan: cont lamotrigine (8) Coronary artery clot: Plan: h/o Left main thrombus with ACS post aspiration thrombectomy LM at [facility] - 01/[address] Greenfield - 06/21/20 Cont ASA/Plavix, atorvastatin Needs to re-establish care with cardiology (9) GERD (gastroesophageal reflux disease): Plan: cont PPI (10) Narcolepsy: Plan: reportedly on adderall for this issue Plan HTN - cont amlodipine, lisinopril, clonidine OUD - cont suboxone. 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 VTE Prophylaxis - Lovenox 40 mg SQ BID slowly progressing Admission and Anticipated Discharge Date Admission Date: July 01, 2023 Subjective reports ongoing cough, wheeze, and fatigue no dyspnea or DARNELL ongoing pain left fritz appetite fair at best Review of Systems Review of Systems: gen - had fever yesterday, none today cv - no chest pain, no orthopnea pulm - no significant sputum GI - no N/V or abd pain Physical Exam Physical Exam: gen - obese, NAD, flat affect; looks ill/fatigued mouth - MMM neck - no JVD heart - RRR, s1 s2, no murmur lungs - mild end-exp wheeze b/l but no rales; no increased work of breathing abd - soft NT ND BS+ skin - extensive cellulitis of left leg -- extends from inferior to left knee down to the left foot; moderate erythema, warm to palpation; signs of trauma to great toe; lymphedema of leg - severe, with worst edema on the foot; plantar aspect left foot - clean ulceration with no obvious odor; mild drainage; subcu tissue visible ext - 2-3+ edema left leg/ankle/foot, trace-1+ edema right foot/ankle; pulses b/l feet 2+ psych - a/o x 3 Results & Data Results & Data Vital Signs (Past 12 Hours) Vital Signs Temp Pulse Resp BP Pulse Ox O2 Del Method 07/02/23 08:00 Room Air 07/02/23 07:50 37.3 C 83 20 118/70 96 Room Air Laboratory Results Laboratory Results - last 48 hr 07/02/23 06:23 WBC 17.28 H RBC 4.34 Hgb 12.8 Hct 37.9 MCV 87.3 MCH 29.5 MCHC 33.8 RDW Std Deviation 45.6 RDW Coeff of Ministerio 14.1 Plt Count 356 MPV 8.8 L Sodium 132 L Potassium 3.6 Chloride 102 Carbon Dioxide 20 L Anion Gap 10 BUN 7 Creatinine 0.59 L Est Cr Clr Drug Dosing 170.5 Est GFR ( Amer) 126.5 Est GFR (Non-Af Amer) 109.1 BUN/Creatinine Ratio 11.9 Glucose 97 Osmolality Calcium 8.0 L Magnesium 1.7 Diagnostic Findings Chest X-Ray 06/30/23 13:34 XR chest 1V portable HISTORY: syncope COMPARISON: Chest 02/02/2019. FINDINGS: The cardiac silhouette is top normal in size. No focal lung consolidations to suggest a pneumonia. No evidence for pulmonary edema. There is a small linear scarlike density within the right midlung zone. No pleural effusions. No pneumothorax. No acute fractures. IMPRESSION: No acute process. ACT 112: Negative or not required by law. Electronically signed by: Armond Patel M.D. 06/30/2023 1:[address] 06/30/23 14:02 CT foot LT w con CT DOSE: 152.72 mGy.cm CLINICAL HISTORY: poss osteo or abscess . Left foot swelling. TECHNIQUE: Multiaxial CT images of the left foot were performed following the intravenous administration of contrast to reformatted in the sagittal and coronal planes. A dose lowering technique was utilized adhering to the principles of ALARA. COMPARISON STUDY: Left foot radiograph 01/17/2023. FINDINGS: No acute fracture or dislocation of the left foot. There are tiny anterior and posterior calcaneal spurs noted. Cortical plate and screws fusing the first through third tarsometatarsal joints. The hardware appears intact. No abnormal periprostatic lucency. There is a 2.7 cm skin ulceration at the plantar aspect of the midfoot. This is associated skin thickening and subcutaneous fat stranding/edema. No loculated fluid collections to suggest an abscess. No underlying bony destructive changes to suggest an osteomyelitis. There is also dorsal subcutaneous edema and skin thickening within the left foot. IMPRESSION: 1. A 2.7 cm skin ulceration at the plantar aspect of the midfoot. No underlying bony destruction to suggest an osteomyelitis. 2. There is subcutaneous edema and skin thickening within the dorsal and plantar aspects of the foot suggestive of a cellulitis. 3. No loculated fluid collections to suggest an abscess. 4. No fracture or dislocation within the left foot. 5. Postoperative changes again noted at the first through third tarsometatarsal joints. The hardware appears intact. ACT 112: Negative or not required by law. Electronically signed by: Armond Patel M.D. 06/30/2023 3:18 PM Duplex Scan Lower Extremity Artery 06/30/23 14:49 US arterial duplex left lower extremity CLINICAL HISTORY: non healing foot ulcer COMPARISON STUDY: None. FINDINGS: Normal triphasic waveforms and velocities seen throughout the left lower extremity arterial system. No evidence for arterial occlusion. IMPRESSION: No significant stenosis or occlusion within the left lower extremity arterial system. ACT 112: Negative or not required by law. Electronically signed by: Armond Patel M.D. 06/30/2023 4:33 PM Foot MRI 07/01/23 15:06 MR foot LT w/o con CLINICAL HISTORY: L plantar draining wound poss osteomyelitis TECHNIQUE: Multisequence, multiplanar MR images of the left foot were obtained without contrast COMPARISON: Comparison is made to left foot CT 06/30/2023 FINDINGS: Orthopedic hardware is seen. No bony edema is seen to suggest acute osteomyelitis. Prominent degenerative changes are seen in the joints of the midfoot. Extensive soft tissue edema is seen without drainable fluid collection. IMPRESSION: 1. Findings compatible with extensive cellulitis but no evidence of abscess or osteomyelitis. 2. Postsurgical and degenerative changes are seen in the bones of the foot. ACT 112: Negative or not required by law. Electronically signed by: Adriano Mullen M.D. 07/01/2023 9:53 PM PG Care Time/CCT Total # of Minutes Spent Total Time Spent with Patient: Total time spent is greater than 50% in coordination of care (as documented) at patient's floor/unit and/or counseling patient: Coding Level of Care Code 45541 SUB INP/OBS CARE 235MIN Diagnoses Left leg cellulitis L03.116 Wound of left foot S91.302A COVID-19 U07.1 Hypomagnesemia E83.42 Celiac disease K90.0 Morbid obesity E66.01 Bipolar disorder F31.9 Coronary artery clot I24.0 GERD (gastroesophageal reflux disease) K21.9 Narcolepsy G47.419
[2023-07-02] MEDS: ACETAMINOPHEN 500 MG TAB PO SCH (13:32)
[2023-07-02] MEDS: ALBUTEROL HFA 8 GM INHALER INH SCH (14:35)
[2023-07-02] MEDS: oxyCODONE HCL IR 5 MG TAB (IMMEDIATE RELEASE) PO PRN (21:06)
--- NOTE | 2023-07-03 00:03 | Communication Note ---
Date of Service: July 03, 2023 I received a message from nursing regarding Mary Jo Michel who was experiencing ongoing pain at her left foot. She is currently receiving Tylenol 1000mg TID wi thout improvement in her pain. Upon chart review, it was noted that the patient has a history of OUD and is currently managed on Suboxone. I reviewed her allergies which also indicated an allergy to Ketorolac. Due to inadequate pain control with nonopioid options, I added a PRN oxycodone 5mg which the patient was agreeable to add as a temporary measure.
[2023-07-03 09:19] LABS: Hematocrit (blood only) 33.8 % (37.0-47.0); Hemoglobin 11.5 g/dl (12.0-16.0); Mean Corpuscular Hemoglobin 29.7 pg (25.0-34.0); Mean Corpuscular Volume 87.3 fL (80.0-100.0); Platelet Count 364 K/uL (130-400); RDW Coefficient of Variation 14.6 % (11.5-14.5); RDW Standard Deviation 46.9 fL (36.4-46.3); Red Blood Count 3.87 M/uL (4.20-5.40); White Blood Count 15.56 K/ul (4.8-10.8)
[2023-07-03 09:40] LABS: BUN Creatinine Ratio 16.7 (10-20); Calcium 7.7 mg/dl (8.6-10.3); Creatinine Clr Calc Pharmacy 186.3 ml/min; Est GFR (African American) 130.2 ml/min; Est GFR (Non-African American) 112.4 ml/min; Potassium 3.4 mmol/L (3.5-5.1)
[2023-07-03] MEDS: AMPICILLIN/SULBACTAM SOD 3,000 MG in SODIUM CHLOR 0.9% MINI-B 100 ML IV SCH (12:00)
[2023-07-03] MEDS ORDERED: ALBUTEROL HFA 8 GM INHALER INH PRN (14:25)
[2023-07-03] MEDS: POTASSIUM CHLORIDE CRTAB 20 MEQ TABCR PO STA (14:39)
[2023-07-03] MEDS: FUROSEMIDE 20 MG TAB PO STA (17:24)
[2023-07-03] MEDS: POTASSIUM CHLORIDE 10 MEQ TABCR PO STA (17:24)
--- NOTE | 2023-07-03 20:38 | Hospitalist Progress Note ---
Date of Service July 03, 2023 Assessment & Plan (1) Left leg cellulitis: Plan: Patient with chronic bilateral lymphedema LLE > RLE; previous L foot surgery; chronic plantar foot ulcer on left x 9-12 months in duration. Wound cx with group C strep, sens to amox, PCN, etc. Changing zosyn to unasyn today. MRSA coverage deferred. CT L foot - no osteomyelitis. CRP and sed rate are both elevated but certainly the severity of the cellulitis can cause this alone. COVID can also increase the crp. Unfortunately Dr. Iban Segal, podiatry, no longer practicing at [facility]. Dr Sorensen unable to see her and not enrolled with her insurance. Appreciate orthotics consult for placement of off-loading walking boot. Uncertain, however, if she will comply with the boot and I am concerned it may be too tight causing pressure against her already fragile skin. Will speak with orthotics tomorrow and also wound care. Wound nurse consult appreciated. Blood cx's negative to date. Suspect she may need prolonged course of IV/PO abx - 14 days or maybe even longer. Recheck a CRP in am. (2) Wound of left foot: Plan: Pressure ulcer plantar L foot. Hx surgery on this foot (2021?) US arterial doppler LLE with normal arterial blood flow. CT of this foot on admission - 2.7 cm plantar midfoot ulcer, associated cellulitis Fortunately no abscess or obvious osteomyelitis Hardware at 1st-3rd TMTs Allow weight-bearing with walking boot/shoe in place only Check doppler of LLE to r/o DVT given the severity of her edema Consider tubigrip stocking for some compression Will give dose of lasix to see if this helps severe edema (3) COVID-19: Plan: Mild symptoms Defer on steroids - no O2 requirement, minimal cough Defer on Remdesivir as well Added bronchodilators for cough Cont COVID isolation (4) Hypomagnesemia: Plan: severely low at admission replaced - now resolved (5) Celiac disease: Plan: cont gluten free diet no issues (6) Morbid obesity: Plan: BMI 42. (7) Bipolar disorder: Plan: cont lamotrigine (8) Coronary artery clot: Plan: h/o Left main thrombus with ACS post aspiration thrombectomy LM at [facility] - 01/[address] Greenfield - 06/21/20 Cont ASA/Plavix, atorvastatin Needs to re-establish care with cardiology (9) GERD (gastroesophageal reflux disease): Plan: cont PPI (10) Narcolepsy: Plan: reportedly on adderall for this issue Plan HTN - cont amlodipine, lisinopril, clonidine OUD - cont suboxone. In usp remission VTE Prophylaxis - Lovenox 40 mg SQ BID patient wants d/c to home tomorrow but I am concerned she will not be ready at that time and discharge would potentially be very premature given the severity of the LLE cellulitis she now has several open areas draining serous fluid on LLE - instructed nursing to place optifoams to these areas until wound can re-eval Admission and Anticipated Discharge Date Admission Date: July 01, 2023 Subjective patient working at her computer when I came into the room she stated that she wanted to go home soon - hopefully tomorrow she was tearful, stating her mental health was suffering due to being in isolation she did not c/o pain in the left leg today she is wearing her walking boot on the LLE with ambulation it continues to be quite red continues with severe edema of both legs but much worse on left foot/leg Review of Systems Review of Systems: gen - cont with fatigue and simply feeling unwell; no fevers cv - no chest pain or tightness pulm - minimal cough; no dyspnea GI - no N/V Physical Exam Physical Exam: gen - obese, NAD, flat affect, tearful today; looks better overall today, however; sitting at side of bed mouth - MMM neck - no JVD heart - RRR, s1 s2, no murmur lungs - CTA b/l abd - soft NT ND BS+ skin - extensive cellulitis of left leg -- extends from inferior to left knee down to the left foot; moderate erythema, warm to palpation - maybe slightly better than prior exam; signs of trauma to great toe - previous blister has popped, there is now open/macerated skin; lymphedema of leg - severe, with worst edema on the foot; plantar aspect left foot - clean ulceration with no obvious odor; mild drainage ext - 2-3+ edema left leg/ankle/foot, trace-1+ edema right foot/ankle; pulses b/l feet 2+ psych - a/o x 3 Results & Data Results & Data Vital Signs (Past 12 Hours) Vital Signs Temp Pulse Resp BP Pulse Ox O2 Del Method 07/03/23 15:54 36.6 C 69 16 122/76 98 Room Air 07/03/23 14:17 88 20 95 Room Air Laboratory Results Laboratory Results - last 24 hr 07/03/23 08:08 WBC 15.56 H RBC 3.87 L Hgb 11.5 L Hct 33.8 L MCV 87.3 MCH 29.7 MCHC 34.0 RDW Std Deviation 46.9 H RDW Coeff of Ministerio 14.6 H Plt Count 364 MPV 9.0 L Sodium 135 L Potassium 3.4 L Chloride 103 Carbon Dioxide 24 Anion Gap 8 BUN 9 Creatinine 0.54 L Est Cr Clr Drug Dosing 186.3 Est GFR ( Amer) 130.2 Est GFR (Non-Af Amer) 112.4 BUN/Creatinine Ratio 16.7 Glucose 120 H Osmolality 276 L Calcium 7.7 L Diagnostic Findings Microbiology 06/30/23 14:03 Foot,Left Gram Stain - Final 06/30/23 14:03 Foot,Left Aerobic and Anaerobic Culture - Preliminary Group C Beta Strep 06/30/23 14:20 Blood Aerobic Blood Culture - Preliminary No growth in Aerobic bottle after 48 hours. 06/30/23 14:20 Blood Anaerobic Blood Culture - Preliminary No growth in Anaerobic bottle after 48 hours. 06/30/23 14:20 Blood Aerobic Blood Culture - Preliminary No growth in Aerobic bottle after 48 hours. 06/30/23 14:20 Blood Anaerobic Blood Culture - Preliminary No growth in Anaerobic bottle after 48 hours. PG Care Time/CCT Total # of Minutes Spent Total Time Spent with Patient: Total time spent is greater than 50% in coordination of care (as documented) at patient's floor/unit and/or counseling patient: Coding Level of Care Code 78489 SUB INP/OBS CARE 3/50MIN Diagnoses Left leg cellulitis L03.116 Wound of left foot S91.302A COVID-19 U07.1 Hypomagnesemia E83.42 Celiac disease K90.0 Morbid obesity E66.01 Bipolar disorder F31.9 Coronary artery clot I24.0 GERD (gastroesophageal reflux disease) K21.9 Narcolepsy G47.419
[2023-07-04 07:44] LABS: BUN Creatinine Ratio 12.5 (10-20); C Reactive Protein 11.99 mg/dl (0-0.5); Calcium 7.7 mg/dl (8.6-10.3); Creatinine Clr Calc Pharmacy 179.6 ml/min; Est GFR (African American) 128.7 ml/min; Magnesium 1.7 mg/dl (1.7-2.4); Potassium 3.9 mmol/L (3.5-5.1)
--- NOTE | 2023-07-04 08:58 | Ultrasound Report ---
ULTRASOUND LEFT LOWER EXTREMITY VENOUS CLINICAL HISTORY: Left lower extremity edema. COMPARISON STUDY: Left lower extremity venous ultrasound dated 06/20/2021 TECHNIQUE: Real-time, grayscale, and color Doppler sonography of the deep veins of the left lower ext remity was performed from the inguinal crease to the calf. Compression and augmentation were utilized . FINDINGS: There is no sonographic evidence of deep venous thrombosis identified in the left lower ext remity. The common femoral, superficial femoral, and popliteal veins are patent and normally compress ible. The greater saphenous vein and the profunda femoris vein at the junction with the common femora l vein are clear. The visualized calf veins are patent. Prominent left inguinal lymph nodes are likel y reactive. The largest measures 5.3 cm in length. IMPRESSION: 1. There is no sonographic evidence of deep venous thrombosis identified in the left lower extremity. 2. Prominent left inguinal lymph nodes nodes are likely reactive. Correlate clinically. ACT 112: Negative or not required by law. Electronically signed by: Carlos Adrian M.D. 07/04/2023 8:57 AM
[2023-07-04] MEDS: POTASSIUM CHLORIDE CRTAB 20 MEQ TABCR PO STA (09:43)
[2023-07-04] MEDS: FUROSEMIDE 20 MG TAB PO ONE (09:43)
[2023-07-04] MEDS: MAGNESIUM OXIDE 400 MG TAB PO SCH (09:43)
[2023-07-04] MEDS: SULFAMETHOXAZOLE/TRIMETHOPRIM DS 800/160MG TAB PO SCH (16:17)
--- NOTE | 2023-07-04 20:26 | Hospitalist Progress Note ---
Date of Service July 04, 2023 Assessment & Plan (1) Left leg cellulitis: Plan: Improving albeit slowly. CRP improved on labs today. Clinically the redness is improving. Of note - patient with chronic bilateral lymphedema LLE > RLE; previous L foot surgery; chronic plantar foot ulcer on left x 9-12 months in duration. Wound cx at [facility] from the plantar ulcer with group C strep, sens to amox, PCN, etc. Received a wound cx from [facility] taken on 06/28 (assuming it was taken from the ulcer) that grew the following - * pansensitive enterococcus * MSSA * strep - group C * proteus All 4 pathogens are ampicillin suspectible except the proteus which is resistant to the unasyn. She was changed from zosyn to unasyn on 07/03/23. I spoke with pharmacy - will add bactrim to cover the proteus, but at discharge should be able to use augmentin orally for all [address] L foot - no osteomyelitis. CRP and sed rate are both elevated but certainly the severity of the cellulitis can cause this alone. COVID can also increase the crp. Unfortunately Dr. Iban Segal, podiatry, no longer practicing at [facility]. Dr Sorensen unable to see her and not enrolled with her insurance. Appreciate orthotics consult for placement of off-loading walking boot. Uncertain, however, if she will comply with the boot and I am concerned it may be too tight causing pressure against her already fragile skin. I spoke with Joe Gaona from orthotics - he saw Ms Michel today - off-loading shoe supplied to her with proper fit. Wound nurse consult appreciated. I also spoke with Rajni Rodriguez from wound who will see again due to the blister popping on great toe as well as the development of other dorsal foot blisters. Blood cx's negative to date here and at [facility]. Suspect she may need prolonged course of IV/PO abx - 14 days or maybe even longer. (2) Wound of left foot: Plan: Pressure ulcer plantar L foot. Hx surgery on this foot (2021?) US arterial doppler LLE with normal arterial blood flow. CT of this foot on admission - 2.7 cm plantar midfoot ulcer, associated cellulitis Fortunately no abscess or obvious osteomyelitis Hardware at 1st-3rd TMTs Allow weight-bearing with walking boot/shoe in place only Checked doppler of LLE to r/o DVT given the severity of her edema -- returned negative Consider tubigrip stocking for some compression -- I discussed this with Rajni Mcconnell today Will give another dose of lasix today but not optimistic it will help her edema since it is mostly lymphedema (3) COVID-19: Plan: Mild symptoms Resolving Remdesivir/systemic steroids deferred Cont bronchodilators for cough Cont COVID isolation (4) Hypomagnesemia: Plan: severely low at admission replaced resolved (5) Celiac disease: Plan: cont gluten free diet no issues (6) Morbid obesity: Plan: BMI 42. (7) Bipolar disorder: Plan: cont lamotrigine (8) Coronary artery clot: Plan: h/o Left main thrombus with ACS post aspiration thrombectomy LM at [facility] - 01/[address] Greenfield - 06/21/20 Cont ASA/Plavix, atorvastatin Needs to re-establish care with cardiology (9) GERD (gastroesophageal reflux disease): Plan: cont PPI (10) Narcolepsy: Plan: reportedly on adderall for this issue Plan HTN - cont amlodipine, lisinopril, clonidine - BPs acceptable OUD - cont suboxone. 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 VTE Prophylaxis - Lovenox 40 mg SQ BID progressing but not ready for discharge Admission and Anticipated Discharge Date Admission Date: July 01, 2023 Subjective patient "feeling better today" cough essentially resolved eating fair, doesn't like the food left leg redness better in her opinion minimal pain LLE using walking boot with ambulation anxious to go home we discussed wound care clinic f/u -- she does live in [place] we discussed f/u with Dr Chadwick Bowman for chronic foot issues as well Review of Systems 2 Review of Systems: gen - no fevers or chills cv - no chest pain pulm - no dyspnea GI - constipated; no diarrhea Physical Exam 2 Physical Exam: gen - obese, NAD, looks good today in general mouth - MMM neck - no JVD heart - RRR, s1 s2, no murmur lungs - CTA b/l abd - soft NT ND BS+ skin - extensive cellulitis of left leg -- extends from inferior to left knee down to the left foot - modestly improved today; erythema & warm to palpation in the aforementioned region; previous blister great toe covered w/ optifoam; multiple areas of blistering on dorsum of foot; lymphedema of leg - severe, with worst edema on the foot; plantar aspect left foot - clean ulceration with no obvious odor; mild drainage on the optifoam/aquacel ag ext - 2-3+ edema left leg/ankle/foot - no change, trace edema right foot/ankle; pulses b/l feet 2+ psych - a/o x 3 Results & Data Results & Data Vital Signs (Past 12 Hours) Vital Signs Temp Pulse Resp BP Pulse Ox O2 Del Method 07/04/23 19:49 36.7 C 65 16 110/72 98 Room Air 07/04/23 16:53 36.6 C 94 H 18 106/67 99 Room Air Laboratory Results Laboratory Results - last 24 hr 07/04/23 06:54 Sodium 137 Potassium 3.9 Chloride 104 Carbon Dioxide 26 Anion Gap 7 BUN 7 Creatinine 0.56 L Est Cr Clr Drug Dosing 179.6 Est GFR ( Amer) 128.7 Est GFR (Non-Af Amer) 111.0 BUN/Creatinine Ratio 12.5 Glucose 115 H Calcium 7.7 L Magnesium 1.7 C-Reactive Protein 11.99 H Diagnostic Findings 06/29/23 wound cx results from left foot plantar wound - processed [facility] lab - PG Care Time/CCT Total # of Minutes Spent Total Time Spent with Patient: Total time spent is greater than 50% in coordination of care (as documented) at patient's floor/unit and/or counseling patient: Coding Level of Care Code 06786 SUB INP/OBS CARE 3/50MIN Diagnoses Left leg cellulitis L03.116 Wound of left foot S91.302A COVID-19 U07.1 Hypomagnesemia E83.42 Celiac disease K90.0 Morbid obesity E66.01 Bipolar disorder F31.9 Coronary artery clot I24.0 GERD (gastroesophageal reflux disease) K21.9 Narcolepsy G47.419
[2023-07-05 06:47] LABS: Basophils # (auto) 0.07 K/uL (0.00-0.20); Basophils % (auto) 0.7 %; Eosinophils # (auto) 0.25 K/uL (0.00-0.50); Eosinophils % (auto) 2.3 %; Hematocrit (blood only) 31.8 % (37.0-47.0); Hemoglobin 10.8 g/dl (12.0-16.0); Immature Granulocytes # (auto) 0.25 K/uL (0.01-0.20); Immature Granulocytes % (auto) 2.3 %; Lymphocytes # (auto) 2.56 K/uL (1.20-3.40); Lymphocytes % (auto) 23.8 %; Mean Corpuscular Hemoglobin 29.6 pg (25.0-34.0); Mean Corpuscular Volume 87.1 fL (80.0-100.0); Mean Platelet Volume 8.6 fL (9.4-12.4); Monocytes # (auto) 0.69 K/uL (0.11-0.59); Monocytes % (auto) 6.4 %; Neutrophils # (auto) 6.93 K/uL (1.40-6.50); Neutrophils % (auto) 64.5 %; Platelet Count 388 K/uL (130-400); RDW Coefficient of Variation 14.4 % (11.5-14.5); RDW Standard Deviation 46.3 fL (36.4-46.3); Red Blood Count 3.65 M/uL (4.20-5.40); White Blood Count 10.75 K/ul (4.8-10.8)
[2023-07-05 07:15] LABS: BUN Creatinine Ratio 15.4 (10-20); Creatinine Clr Calc Pharmacy 193.4 ml/min; Est GFR (African American) 131.9 ml/min; Est GFR (Non-African American) 113.8 ml/min; Potassium 3.9 mmol/L (3.5-5.1)
[2023-07-05] MEDS: FUROSEMIDE 20 MG TAB PO ONE (08:28)
--- NOTE | 2023-07-05 16:54 | Discharge Summary ---
Date of Service July 05, 2023 Admission HPI Per Admitting Provider Mary Jo Michel is a 47-year-old female who presents to the ER with a left foot infection. She has a chronic left plantar foot wound for several months treated with various antibiotics and prior ORIF for Lisfranc midfoot injury in 2021. She has declined referral to wound care previously but at her last PCP appointment she has been open to going. Yesterday her foot became acutely swollen and erythema tracking up her leg. She was seen in the emergency room at [facility] yesterday and left AGAINST MEDICAL ADVICE as she knew one of the nurses and she did not want this nurse to know about her. No fever or chills. Associated generalized weakness and fatigue. 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 Discharge Exam gen - obese, NAD, looks good today in general mouth - MMM neck - no JVD heart - RRR, s1 s2, no murmur lungs - CTA b/l abd - soft NT ND BS+ skin - extensive cellulitis of left leg -- extends from inferior to left knee down to the left foot - modestly improved today; erythema & warm to palpation in the aforementioned region; previous blister great toe covered w/ optifoam; multiple areas of blistering on dorsum of foot; lymphedema of leg - severe, with worst edema on the foot; plantar aspect left foot - clean ulceration with no obvious odor; mild drainage on the optifoam/aquacel ag ext - 2-3+ edema left leg/ankle/foot - no change, trace edema right foot/ankle; pulses b/l feet 2+ psych - a/o x 3 Discharge Data Allergies Allergy/AdvReac Type Severity Reaction Status Date / Time nitrofurantoin Allergy Severe throat Verified 02/06/23 08:35 edema. ketorolac Allergy Intermediate Hot skin Verified 02/06/23 08:35 blotches. meperidine Allergy Intermediate hot skin Verified 02/06/23 08:35 blotches gluten Allergy Verified 07/01/23 14:19 ciprofloxacin AdvReac Mild stomach Verified 02/06/23 08:35 issues Consultations 06/30/23 14:40 ED Decision to Admit Stat 07/02/23 12:12 Consult Orthopedic Surgery Routine Ordered Studies 06/30/23 14:02 CT foot LT w con Stat 06/30/23 14:49 US arterial duplex LE LT Stat 07/01/23 15:06 MR foot LT w/o con Routine 07/04/23 07:00 US venous doppler LE Routine Hospital Course (1) Left leg cellulitis: Improving albeit slowly. CRP improved on labs today. Clinically the redness is improving. Of note - patient with chronic bilateral lymphedema LLE > RLE; previous L foot surgery; chronic plantar foot ulcer on left x 9-12 months in duration. Wound cx at [facility] from the plantar ulcer with group C strep, sens to amox, PCN, etc. Received a wound cx from [facility] taken on 06/28 (assuming it was taken from the ulcer) that grew the following - * pansensitive enterococcus * MSSA * strep - group C * proteus All 4 pathogens are ampicillin suspectible except the proteus which is resistant to the unasyn. She was changed from zosyn to unasyn on 07/03/23. I spoke with pharmacy - will add bactrim to cover the proteus, but at discharge should be able to use augmentin orally for all [address] L foot - no osteomyelitis. CRP and sed rate are both elevated but certainly the severity of the cellulitis can cause this alone. COVID can also increase the crp. Unfortunately Dr. Iban Segal, podiatry, no longer practicing at [facility]. Dr Sorensen unable to see her and not enrolled with her insurance. Appreciate orthotics consult for placement of off-loading walking boot. Uncertain, however, if she will comply with the boot and I am concerned it may be too tight causing pressure against her already fragile skin. I spoke with Joe Gaona from orthotics - he saw Ms Michel today - off-loading shoe supplied to her with proper fit. Wound nurse consult appreciated. I also spoke with Rajni Rodriguez from wound who will see again due to the blister popping on great toe as well as the development of other dorsal foot blisters. Blood cx's negative to date here and at [facility]. Suspect she may need prolonged course of IV/PO abx - 14 days or maybe even longer. (2) Wound of left foot: Pressure ulcer plantar L foot. Hx surgery on this foot (2021?) US arterial doppler LLE with normal arterial blood flow. CT of this foot on admission - 2.7 cm plantar midfoot ulcer, associated adalberto lulitis Fortunately no abscess or obvious osteomyelitis Hardware at 1st-3rd TMTs Allow weight-bearing with walking boot/shoe in place only Checked doppler of LLE to r/o DVT given the severity of her edema -- returned negative Consider tubigrip stocking for some compression -- I discussed this with Rajni Mcconnell today Will give another dose of lasix today but not optimistic it will help her edema since it is mostly lymphedema (3) COVID-19: Mild symptoms Resolving Remdesivir/systemic steroids deferred Cont bronchodilators for cough Cont COVID isolation (4) Hypomagnesemia: severely low at admission replaced resolved (5) Celiac disease: cont gluten free diet no issues (6) Morbid obesity: BMI 42. (7) Bipolar disorder: cont lamotrigine (8) Coronary artery clot: h/o Left main thrombus with ACS post aspiration thrombectomy LM at [facility] - 01/[address] Greenfield - 06/21/20 Cont ASA/Plavix, atorvastatin Needs to re-establish care with cardiology (9) GERD (gastroesophageal reflux disease): cont PPI (10) Narcolepsy: reportedly on adderall for this issue Plan HTN - cont amlodipine, lisinopril, clonidine - BPs acceptable OUD - cont suboxone. In extermination inspector remission VTE Prophylaxis - Lovenox 40 mg SQ BID progressing but not ready for discharge Home Health Attestation I certify that this patient is under my care and that I, or a physicians insurance sales assistant working with me, had a face to-face encounter that meets the home health dolt-gi-cvgo encounter requirements with this patient. The encounter with the patient was in whole, or in part, for the following medical condition, which is the primary reason for home health care (list medical condition): Left foot cellulitis, wound care I certify that, based on my findings, the following services are medically necessary home health services: My clinical findings support the need for the above services because: Home Safety Assessment OT Assess ADL Status and Restore Function w ADLs PT Assessment for Endurance / Balance / Strength PT Eval for Safety, Gait Training, Assistive Devices PT Gait and Balance Training, Strengthening and Safety Skilled Nsg to Assess, Perform and Teach Wound Care Teach on Disease Management and Interventions Further, I certify that my clinical findings support that this patient is homebound (i.e. absences from home require considerable and taxing effort and are for medical reasons or [facility] services or infrequently or of short duration when for other reasons) because: Supportive Aid - Walker Certification for Home Health Services: Based on the above findings, I certify that this patient is confined to the home and needs intermittent chcf care, physical therapy and/or speech therapy or continues to need occupational therapy. The patient is under my care, and I have initiated the establishment of the plan of care. This patient will be followed by a physician who will periodically review the plan of care. Discharge Plan Discharge Items Patient Disposition: Home - Home Health Services Reason For Visit: LEFT FOOT CELLULITIS Discharge Diagnosis: 1. severe left foot & leg cellulitis - slowly improving 2. left foot ulcer 3. COVID-19 infection 4. low magnesium - resolved 5. chronic lymphedema of left leg 6. prior surgery of left foot Activity: As commented below Activity Comment: use the special shoe provided by orthotics with ANY walking/weight bearing Bathing Comment: Try to keep your left foot clean/dry during showers; no tub baths Non-emergency contact: Primary Care Provider and Specialist Call non-emergency contact if: you have any medication questions, your pain is not controlled, you have a fever, your wound has increased redness, your wound has increased drainage and your wound pain has increased Follow-up/Referrals: [facility] [Provider Group] (we will set you up with an appointment to see cardiology as it has been some time since your heart has been checked ) Chitra Miller CRNP [Nurse Practitioner] - ([facility] - 5 days for recheck of left leg and left foot) Liya Stover MD [Primary Care Provider] - 07/10/23 9:30 am (1 week ) Rajeev Bowman DO [Surgeon] - (Foot & ankle orthopedic physician; he could see you for your chronic left foot problems. His office is in [place]. If you would like to follow with him please call his office to schedule an appointment. ) Diet: Gluten Free and Heart Healthy Addtl Attending Provider Instructions: Ms Michel, You were hospitalized due to an infected ulcer on the bottom of your left foot as well as severe cellulitis (skin infection) of the left leg/left foot. In addition you had mild COVID-19 infection; we did not see any evidence of pneumonia. You were treated with IV antibiotics for your left leg/foot infection with slow, gradual improvement. Wound Care saw you to address the foot ulcer as well as the areas of blisters on the top of the foot. Our orthotics department saw you to fit you for a walking shoe as well as walking boot to help protect your foot and to allow better healing of the ulcer. The left leg cellulitis will take some time - possibly up to 10-14 more days - before the color, temperature, etc goes back to normal. These infections tend to be slow to resolve. Please use the walking shoe any time you walk or weight bear to protect the bottom of your left foot. Right now the shoe is fitting better than the walking boot. Perhaps when the edema is improved and the cellulitis is resolved the walking boot may be a better option. For now please use the walking shoe. We have fitted you with a Tubigrip stocking for the left leg. Please wear this as much as possible during the daytime; remove at night-time when you sleep. This will help with your edema. Recommendations: 1. antibiotics - amoxicillin-clavulanate - 875mg twice daily x 10 days, first dose TONIGHT. Biggest side effect of this medicine - diarrhea. 2. take magnesium supplement 400mg once daily. 3. wound care instructions for your left foot/leg - * for the ulcer on the bottom of the left foot - irrigate/wash with sterile saline. Cover with aquacel ag - be sure to cut an amount that is larger than the wound itself. Then cover with "ABD" dressing, then secure with kerlix. * for the blistering and open skin on the top of the left foot - cleanse with sterile saline. Cover the blistered areas with sheets of Kaltostat. Place Kaltostat rope in between the toes. Cover with ABD dressing, then kerlix. * once the foot is wrapped place one-layer Tubigrip stocking from base of toes to just below the left knee. * no tub baths at this time; cover the foot and shower as needed. * change the above dressings DAILY and as needed. 4. you will need to follow-up with the [facility] within 1 week. 5. I have included Dr Chadwick Bowman's office information for you. He is an orthopedic surgeon who specializes in foot/ankle problems. You can follow-up with him as needed/desired. 6. COVID-19 - it is unlikely that you are contagious to others at this time. You are about 10 days into the illness and your symptoms are about resolved. You do not need to isolate at home. You can go out into the community at this time. I would recommend wearing a mask, however, for the next 7 days in public. Return to [facility] if - * you have fever over 100 degrees * you have worsening shortness of breath * you have severe diarrhea * you have worsening redness, swelling, drainage, bad odor, etc from the left leg or the left foot ulcer * you have worsening pain of the left leg/foot * any other concerns Continue to feel better! Pending Studies at Discharge: No Stand-Alone Forms: My [facility], Smoking Cessation Medications and DC Order Prescriptions: New magnesium oxide 400 mg (241.3 mg magnesium) Tablet 400 mg PO QAM Qty: 30 0RF amoxicillin-pot clavulanate 875-125 mg tablet 1 tab PO BID Qty: 20 0RF Continued albuterol sulfate [Ventolin HFA] 90 mcg/actuation HFA aerosol inhaler 2 puff INHALATION Q6H PRN (Reason: Shortness Of Breath) Qty: 18 5RF eletriptan [Relpax] 40 mg tablet See Rx Instructions PO .COMPLEX PRN (Reason: Migraine Headache) Qty: 9 11RF Dose Instruction: 1 tablet PO at onset of migraine. May repeat once after 2 hours. Max is 2 doses/24hours PRN; Rx Instructions: 1 tablet PO at onset of migraine. May repeat once after 2 hours. Max is 2 doses/24hours PRN; estradiol 2 mg tablet 2 mg PO DAILY Qty: 90 3RF lisinopril 20 mg tablet 20 mg PO DAILY Qty: 90 3RF amlodipine 10 mg tablet 10 mg PO DAILY Qty: 90 3RF clonidine HCl 0.1 mg tablet 0.1 mg PO DAILY Qty: 90 3RF atorvastatin [Lipitor] 80 mg tablet 80 mg PO DAILY Qty: 90 3RF prazosin 1 mg capsule 1 mg PO HS Qty: 90 3RF cholecalciferol (vitamin D3) 1,250 mcg (50,000 unit) capsule 50,000 unit PO .COMPLEX Qty: 12 1RF Rx Instructions: 50,000 units orally once weekly; SATURDAY clopidogrel [Plavix] 75 mg tablet 75 mg PO DAILY Qty: 90 3RF (DME) Shower Chair Misc See Rx Instructions .Route Qty: 1 0RF Rx Instructions: As directed mometasone 50 mcg/actuation spray,non-aerosol 2 spray INTNAS DAILY PRN (Reason: nasal congestion) Qty: 54 3RF propranolol 80 mg capsule,extended release 24hr 80 mg PO BID Qty: 180 3RF dextroamphetamine-amphetamine [Adderall] 20 mg tablet 20 mg PO DAILY Rexulti 3 mg tablet 3 mg PO DAILY Qty: 30 0RF zolpidem 5 mg tablet 5 mg PO HS furosemide [Lasix] 20 mg tablet 20 mg PO DAILY PRN (Reason: edema) Qty: 90 3RF gabapentin 100 mg capsule 100 mg PO TID aspirin [Adult Aspirin Regimen] 81 mg tablet,delayed release (DR/EC) 81 mg PO QAM vitamin B complex Capsule 1 cap PO QAM buprenorphine-naloxone 8-2 mg tablet, sublingual 2.5 tab SUBLINGUAL DAILY ondansetron HCl 4 mg tablet 4 mg PO Q8H PRN (Reason: Nausea) Rx Instructions: TAKE ONE TABLET BY MOUTH EVERY 8 HOURS NEEDED FOR NAUSEA. pantoprazole 40 mg tablet,delayed release (DR/EC) 40 mg PO BID Rx Instructions: TAKE 1 TABLET TWICE DAILY ferrous sulfate 325 mg (65 mg iron) tablet 325 mg PO DAILY Rx Instructions: 1 tablet daily lamotrigine 100 mg tablet 200 mg PO HS Changed tizanidine 4 mg tablet 4 mg PO QID PRN (Reason: muscle spasticity) Qty: 360 1RF Discharge Orders: Discharge Order (Routine); Ordered 07/05/23 Ordered By: Agustin Callaway/Other Patient Handouts: Nutrition for Wound Healing Admission Data Admit Date/Time: 07/01/23 12:02 Attending Provider: Agustin Anderson Admit Provider: Agustin Fowler Primary Care Provider: Liya Stover Other Providers: Agustin Fowler; Samuel Sosa; [facility] Coding Diagnoses Left leg cellulitis L03.116 Wound of left foot S91.302A COVID-19 U07.1 Hypomagnesemia E83.42 Celiac disease K90.0 Morbid obesity E66.01 Bipolar disorder F31.9 Coronary artery clot I24.0 GERD (gastroesophageal reflux disease) K21.9 Narcolepsy G47.419
== END 2023-07-05 17:42 | disposition home health service (06) | DRG 602 ==
LOC: EDINP 13:04 → ED 13:04 → SUATTDRO 14:58 → 2N 17:48 → SUATTDRO 07-01 12:02 → 3E 07-01 22:41

== ENCOUNTER 2023-08-27 23:48 | Inpatient (IN) ==
--- NOTE | 2023-08-28 00:06 | Emergency Department Note ---
History of Present Illness General Chief complaint: Illness Stated complaint: L FOOT RASH - OPEN SORE - NOT FEELING WELL Time Seen by Provider: 08/27/23 23:54 History of Present Illness This is a 47-year-old female presenting to the emergency department from home via EMS for evaluation of generalized illness and discomfort of her left foot. The patient has a well-documented history of left foot wound. She has history of Lisfranc fracture to this foot that required surgery. The patient has had difficulty with ambulation and is neuropathic to this foot. She did have hospitalization about 2 months ago for lower extremity cellulitis where the wound culture grew out Enterococcus, MSSA, group C strep, and Proteus. The patient follows with the wound clinic, with last visit being yesterday. She had a small debridement performed. The patient went to her primary care physician today for rash on the foot, where blood work was ordered but patient has not gotten this completed yet. The patient has been taking ibuprofen and Tylenol. She states that she has had a fever, but does not have a thermometer at home. No chest pain, chest tightness, shortness of breath, cough, or abdominal symptoms. Home Medications Medication Instructions Recorded Confirmed Type aspirin 81 mg tablet,delayed 81 mg PO QAM 10/13/20 08/28/23 History release (Adult Aspirin Regimen) vitamin B complex 1 cap PO QAM 10/13/20 08/28/23 History albuterol sulfate 90 mcg/actuation 2 puff inhalation Q6H PRN 04/25/21 08/28/23 Rx aerosol inhaler (Ventolin HFA) Shortness Of Breath #18 grams lisinopril 20 mg tablet 20 mg PO DAILY #90 tabs 06/25/22 08/28/23 Rx clonidine HCl 0.1 mg tablet 0.1 mg PO DAILY #90 tabs 08/30/22 08/28/23 Rx atorvastatin 80 mg tablet (Lipitor) 80 mg PO DAILY #90 tabs 11/26/22 08/28/23 Rx furosemide 20 mg tablet (Lasix) 20 mg PO DAILY PRN edema #90 tabs 02/06/23 08/28/23 Rx gabapentin 100 mg capsule 100 mg PO TID 02/06/23 08/28/23 History zolpidem 5 mg tablet 5 mg PO HS 02/06/23 08/28/23 History clopidogrel 75 mg tablet (Plavix) 75 mg PO DAILY #90 tabs 04/29/23 08/28/23 Rx dextroamphetamine-amphetamine 20 20 mg PO DAILY 05/10/23 08/28/23 History mg tablet (Adderall) Shower Chair #1 ea 05/20/23 08/28/23 Rx mometasone 50 mcg/actuation nasal 2 spray intranasal DAILY PRN nasal 06/24/23 08/28/23 Rx spray congestion #54 grams propranolol 80 mg capsule,24 80 mg PO BID #180 caps 06/28/23 08/28/23 Rx hr,extended release buprenorphine 8 mg-naloxone 2 mg 2.5 tab sublingual DAILY 06/30/23 08/28/23 History sublingual tablet lamotrigine 100 mg tablet 200 mg PO HS 06/30/23 08/28/23 History pantoprazole 40 mg tablet,delayed 40 mg PO BID 06/30/23 08/28/23 History release magnesium oxide 400 mg (241.3 mg 400 mg PO QAM #30 tabs 07/05/23 08/28/23 Rx magnesium) tablet tizanidine 4 mg tablet 4 mg PO QID PRN muscle spasticity 07/05/23 08/28/23 Rx #360 tabs cholecalciferol (vitamin D3) 1,250 50,000 unit PO .COMPLEX #12 caps 07/08/23 08/28/23 Rx mcg (50,000 unit) capsule ondansetron HCl 4 mg tablet 4 mg PO Q8H PRN Nausea #20 tabs 07/08/23 08/28/23 Rx ferrous sulfate 325 mg (65 mg 325 mg PO DAILY #90 tabs 07/16/23 08/28/23 Rx iron) tablet estradiol 2 mg tablet 2 mg PO DAILY #90 tabs 07/30/23 08/28/23 Rx amlodipine 10 mg tablet 10 mg PO DAILY #90 tabs 08/26/23 08/28/23 Rx brexpiprazole 4 mg tablet (Rexulti) 4 mg PO DAILY 08/28/23 08/28/23 History clonazepam 0.5 mg tablet 0.5 mg PO DAILY PRN Anxiety 08/28/23 08/28/23 History prazosin 2 mg capsule 2 mg PO HS 08/28/23 08/28/23 History Allergies Allergy/AdvReac Type Severity Reaction Status Date / Time nitrofurantoin Allergy Severe throat Verified 08/27/23 14:42 edema. ketorolac Allergy Intermediate Hot skin Verified 08/27/23 14:42 blotches. meperidine Allergy Intermediate hot skin Verified 08/27/23 14:42 blotches gluten Allergy Verified 08/27/23 14:42 amoxicillin [From Augmentin] AdvReac Intermediate Vomiting Verified 08/27/23 14:42 clavulanic acid AdvReac Intermediate Vomiting Verified 08/27/23 14:42 [From Augmentin] ciprofloxacin AdvReac Mild stomach Verified 08/27/23 14:42 issues Past Med/Surg History Problem List (Updated 08/28/23 @ 03:11 by Kel Dunaway PA-C) Coronary artery disease Sepsis Traumatic open wound of great toe with delayed healing Neuropathic ulcer of left foot (Acute) Lower extremity edema (Chronic) Venous ulcer of left leg (Acute) Hypomagnesemia Left leg cellulitis COVID-19 Wound of left foot (Acute) History of drug abuse (Chronic) h/o opiate abuse Narcolepsy (Chronic) History of thyroiditis (Chronic) Tobacco dependence due to cigarettes (Chronic) Vitamin D deficiency (Chronic) Morbid obesity (Chronic) Venous insufficiency (Chronic) Coronary artery clot (Chronic) LAD clot s/p thrombectomy 2018 Bipolar disorder (Chronic) Celiac disease (Chronic) Chronic migraine (Chronic) Chronic low back pain (Chronic) Lumbar facet joint syndrome (Chronic) Hyperlipidemia (Chronic) Hypertension (Chronic) Fibromyalgia (Chronic) Diabetes mellitus, type 2 (Chronic) hx of, prior to weightloss--no meds, diet controlled Medical History GERD (gastroesophageal reflux disease) Surgical History History of cardiac cath x3--02/02/19 @ [facility]--no stents, sent to [facility] [place], 02/03/19 @ [facility] [place], 02/05/19 @ [facility] [place] S/P lumbar laminectomy (12/2019) bilateral L5-S1 laminectomy and partial diskectomy due to lumbar disk disease with cauda equina syndrome History of colonoscopy History of surgery Removal of rectal cyst History of bilateral tubal ligation History of section x 3 History of total abdominal hysterectomy and bilateral salpingo-oophorectomy History of cholecystectomy Family History Grandmother (Maternal) Family history of diabetes mellitus Uncle Family history of diabetes mellitus Other Anxiety Breast cancer Cardiac disorder Depression Hypertension Myocardial infarction No family history of adverse response to anesthesia Social History Smoking Status: Current every day smoker Tobacco Type: Cigarettes Cigarettes Per Day: 20 a day; Second Hand Exposure: No; Do You Dip or Chew Tobacco: No; Hx Alcohol Use: No Hx Substance Use: Yes Non-Prescribed Medications Comment: last used meth 4 prior to hospital admission Last Used Substance: Days (ago) Substance Use Type Other:: medical marijuana Preferred Language: Indian Communication Ability: Effective Visual Impairment: No Limitations Hearing Ability: Normal Stain Maker Required: No Beliefs That Will Affect Care: None marital status: single Current Living Situation: Other Current Living Situation Comment: Lives with son current occupational status: disabled Feels Safe at Home: Yes Diet: regular Physical Activity Frequency: Does not Exercise Seatbelt Use: always Sunscreen Use: No Assistive Devices: None Review of Systems A total of 10 systems reviewed and were otherwise negative Physical Exam Vital Signs Vital Signs - 24 hr 08/27/23 23:57 08/27/23 23:57 08/28/23 00:04 Temperature 37.8 C H Temperature Source Oral Pulse Rate 105 H 108 H Pulse Rhythm Regular Pulse Strength Normal Respiratory Rate 16 Respiratory Effort / Characteristics Non-Labored Spontaneous Respiratory Depth Normal Respiratory Pattern Regular Blood Pressure 150/82 H Blood Pressure Mean 104 Blood Pressure Position Sitting Pulse Oximetry 96 96 Oxygen Delivery Method Room Air Room Air Sepsis Recent Fever Within 48 Hours Yes Sepsis New/Unexplained Change in Mental Status N/A Sepsis Action Taken by Nursing No Action Required VITALS: Vitals are noted on the nurse's note and reviewed by myself. Vital signs stable. GENERAL: Morbidly obese white female who appears chronically unwell HEAD: Normocephalic atraumatic. HEART: Regular rate and rhythm without murmurs gallops or rubs. LUNGS: Clear to auscultation bilaterally without wheezes, rales or rhonchi. No retractions or accessory muscle use. MUSCULOSKELETAL: Multiple chronic wounds noted to the left foot. There is some erythema to the superior aspect of the foot, without proximal extension. There is no drainage or discharge identified for culture. Course Administered Medications Sodium Chloride (Nss) 1,000 mls @ 999 mls/hr IV .Q1H1M VAISHALI Stop: 08/28/23 03:36 Last Admin: 08/28/23 02:25 Dose: 999 mls/hr Documented By: LEONELA Discontinued Medications Piperacillin Sod/Tazobactam Sod (Zosyn) 4.5 gm in 100 mls @ 200 mls/hr IV NOW ONE Stop: 08/28/23 02:04 Last Infusion: 08/28/23 02:13 Dose: Infused Documented By: Admin: 08/28/23 01:43 Dose: 200 mls/hr Documented By: LEONELA Medical Decision Making Differential Diagnosis Differential diagnosis includes: Etiologies such as cellulitis, abscess, osteomyelitis, MRSA infection, DVT, necrotizing fasciitis, dermatitis, drug eruption, as well as others were entertained Laboratory Data 08/28/23 01:04 08/28/23 01:04 Lab Results 08/28/23 08/28/23 Range/Units 00:17 01:04 WBC 16.24 H (4.8-10.8) K/ul RBC 4.85 (4.20-5.40) M/uL Hgb 14.4 (12.0-16.0) g/dl Hct 43.2 (37.0-47.0) % MCV 89.1 (80.0-100.0) fL MCH 29.7 (25.0-34.0) pg MCHC 33.3 (32.0-36.0) g/dL RDW Std Deviation 45.2 (36.4-46.3) fL RDW Coeff of Ministerio 14.0 (11.5-14.5) % Plt Count 309 (130-400) K/uL MPV 8.7 L (9.4-12.4) fL Immature Gran % (Auto) 0.6 % Neut % (Auto) 90.6 % Lymph % (Auto) 4.8 % [place] % (Auto) 3.3 % Eos % (Auto) 0.1 % Baso % (Auto) 0.6 % Neut # (Auto) 14.72 H (1.40-6.50) K/uL Lymph # (Auto) 0.78 L (1.20-3.40) K/uL [place] # (Auto) 0.53 (0.11-0.59) K/uL Eos # (Auto) 0.02 (0.00-0.50) K/uL Baso # (Auto) 0.09 (0.00-0.20) K/uL Immature Gran # (Auto) 0.10 (0.01-0.20) K/uL Sodium 135 L (136-145) mmol/L Potassium 3.6 (3.5-5.1) mmol/L Chloride 103 (98-107) mmol/L Carbon Dioxide 24 (21-32) mmol/L Anion Gap 8 (3-11) BUN 7 (6-23) mg/dl Creatinine 0.59 L (0.6-1.2) mg/dl Est Cr Clr Drug Dosing 176.5 ml/min Est GFR ( Amer) 126.5 ml/min Est GFR (Non-Af Amer) 109.1 ml/min BUN/Creatinine Ratio 11.9 (10-20) Glucose 116 H (70-99(Fasting)) mg/dl Lactate 1.5 (0.4-2.0) mmol/L Calcium 9.1 (8.6-10.3) mg/dl Magnesium 1.4 L (1.7-2.4) mg/dl Total Bilirubin 0.9 (0.2-1.0) mg/dl Direct Bilirubin 0.2 (0-0.2) mg/dl AST 13 (13-39) U/L ALT 9 (7-52) U/L Alkaline Phosphatase 117 H (34-104) U/L Troponin I High Sens 4.6 (0-14) pg/ml Total Protein 7.4 (6.0-8.3) gm/dl Albumin 3.9 (3.4-5.0) gm/dl Procalcitonin 0.04 (0-0.5) ng/ml Adenovirus (PCR) Not Detected (NotDetected) B. pertussis DNA (PCR) Not Detected (NotDetected) B.parapertussis DNA PCR Not Detected (NotDetected) C. pneumoniae DNA (PCR) Not Detected (NotDetected) Coronavirus OC43 (PCR) Not Detected (NotDetected) Coronavirus HKU1 (PCR) Not Detected (NotDetected) Coronavirus 229E (PCR) Not Detected (NotDetected) SARS-CoV-2 (PCR) Not Detected (NotDetected) Coronavirus NL63 (PCR) Not Detected (NotDetected) Human Metapneumovir PCR Not Detected (NotDetected) Influenza Type A (PCR) Not Detected (NotDetected) Influenza Type B (PCR) Not Detected (NotDetected) M. pneumoniae (PCR) Not Detected (NotDetected) Parainfluenza 1 (PCR) Not Detected (NotDetected) Parainfluenza 2 (PCR) Not Detected (NotDetected) Parainfluenza 3 (PCR) Not Detected (NotDetected) Parainfluenza 4 (PCR) Not Detected (NotDetected) RSV (PCR) Not Detected (NotDetected) Entero/Rhino (PCR) Not Detected (NotDetected) MDM Narrative Physical exam and history were performed. Nursing notes, EMR, and Medication List were personally reviewed. No social concerns were identified as barriers to patients care. Patient appears to have fever symptoms and generalized illness bringing her to the ER. Patient has had symptoms like this in the past and believes it is from her foot. IV access was established and labs were obtained. Patient was hydrated with 2 L normal saline based on ideal body weight. Cultures were gathered. Patient's blood work is as above and was reviewed. She does have an elevated white blood cell count of 16,000. She does not have significant anemia or gross electrolyte imbalance. Lactic is negative. Troponin x 1 negative. Bio fire negative. Pro-Maldonado is 0.04. Chest x-ray was independently reviewed by myself showing no acute process. Case was discussed with my attending, and overall the patient does not appear well for discharge. Based on her fever, tachycardia, and elevated white blood cell count she certainly could have a sepsis picture. Her foot is felt to be the most likely etiology of her infection. She has been given fluids based on ideal body weight. Patient was given IV vancomycin and IV Zosyn here in the ER. Case was discussed with the on-call hospitalist. Please see their dictation for further patient course, plan, disposition. The chart was completed utilizing [employer] Voice Recognition Software. Grammatical errors, random word insertions, pronoun errors, and incomplete sentences are an occasional consequence of this system due to software limitations, ambient noise, and hardware issues. Any formal questions or concerns about the content, text, or information contained within the body of this dictation should be directly addressed to the provider for clarification. . Impression & Plan Neuropathic ulcer of left foot Discharge Plan Visit Data Chief Complaint: Illness Stated Complaint: L FOOT RASH - OPEN SORE - NOT FEELING WELL ED Provider: Melissa Jewell ED Midlevel Provider: Kel Dunaway Discharge Problem: Neuropathic ulcer of left foot Forms Stand Alone Forms: [facility] Prescriptions Prescriptions: No Action albuterol sulfate [Ventolin HFA] 90 mcg/actuation HFA aerosol inhaler 2 puff INHALATION Q6H PRN (Reason: Shortness Of Breath) Qty: 18 5RF lisinopril 20 mg tablet 20 mg PO DAILY Qty: 90 3RF clonidine HCl 0.1 mg tablet 0.1 mg PO DAILY Qty: 90 3RF atorvastatin [Lipitor] 80 mg tablet 80 mg PO DAILY Qty: 90 3RF clopidogrel [Plavix] 75 mg tablet 75 mg PO DAILY Qty: 90 3RF (DME) Shower Chair Misc See Rx Instructions .Route Qty: 1 0RF Rx Instructions: As directed mometasone 50 mcg/actuation spray,non-aerosol 2 spray INTNAS DAILY PRN (Reason: nasal congestion) Qty: 54 3RF propranolol 80 mg capsule,extended release 24hr 80 mg PO BID Qty: 180 3RF cholecalciferol (vitamin D3) 1,250 mcg (50,000 unit) capsule 50,000 unit PO .COMPLEX Qty: 12 1RF Rx Instructions: 50,000 units orally once weekly; SATURDAY ondansetron HCl 4 mg tablet 4 mg PO Q8H PRN (Reason: Nausea) Qty: 20 0RF Rx Instructions: TAKE ONE TABLET BY MOUTH EVERY 8 HOURS NEEDED FOR NAUSEA. estradiol 2 mg tablet 2 mg PO DAILY Qty: 90 3RF amlodipine 10 mg tablet 10 mg PO DAILY Qty: 90 3RF dextroamphetamine-amphetamine [Adderall] 20 mg tablet 20 mg PO DAILY zolpidem 5 mg tablet 5 mg PO HS furosemide [Lasix] 20 mg tablet 20 mg PO DAILY PRN (Reason: edema) Qty: 90 3RF gabapentin 100 mg capsule 100 mg PO TID ferrous sulfate 325 mg (65 mg iron) tablet 325 mg PO DAILY Qty: 90 3RF Rx Instructions: 1 tablet daily aspirin [Adult Aspirin Regimen] 81 mg tablet,delayed release (DR/EC) 81 mg PO QAM vitamin B complex Capsule 1 cap PO QAM prazosin 2 mg capsule 2 mg PO HS clonazepam 0.5 mg tablet 0.5 mg PO DAILY PRN (Reason: Anxiety) Rexulti 4 mg tablet 4 mg PO DAILY buprenorphine-naloxone 8-2 mg tablet, sublingual 2.5 tab SUBLINGUAL DAILY pantoprazole 40 mg tablet,delayed release (DR/EC) 40 mg PO BID Rx Instructions: TAKE 1 TABLET TWICE DAILY lamotrigine 100 mg tablet 200 mg PO HS magnesium oxide 400 mg (241.3 mg magnesium) Tablet 400 mg PO QAM Qty: 30 0RF tizanidine 4 mg tablet 4 mg PO QID PRN (Reason: muscle spasticity) Qty: 360 1RF Referrals Referrals: Liya Stover MD [Primary Care Provider] -
[2023-08-28 01:15] LABS: Adenovirus PCR Not Detected (NotDetected); Bordetella parapertussis PCR Not Detected (NotDetected); Bordetella pertussis PCR Not Detected (NotDetected); Chlamydia pneumoniae PCR Not Detected (NotDetected); Coronavirus 229E PCR Not Detected (NotDetected); Coronavirus CoV-2 (COVID19)PCR Not Detected (NotDetected); Coronavirus HKU1 PCR Not Detected (NotDetected); Coronavirus NL63 PCR Not Detected (NotDetected); Coronavirus OC43PCR Not Detected (NotDetected); Human Metapneumovirus PCR Not Detected (NotDetected); Influenza A PCR Not Detected (NotDetected); Influenza B PCR Not Detected (NotDetected); Mycoplasma pneumoniae PCR Not Detected (NotDetected); Parainfluenza Virus 1 PCR Not Detected (NotDetected); Parainfluenza Virus 2 PCR Not Detected (NotDetected); Parainfluenza Virus 3 PCR Not Detected (NotDetected); Parainfluenza Virus 4 PCR Not Detected (NotDetected); Respiratory Syncytial VirusPCR Not Detected (NotDetected); Rhinovirus/Enterovirus PCR Not Detected (NotDetected)
[2023-08-28 01:29] LABS: Hematocrit (blood only) 43.2 % (37.0-47.0); Hemoglobin 14.4 g/dl (12.0-16.0); Mean Corpuscular Hemoglobin 29.7 pg (25.0-34.0); Mean Corpuscular Hgb Conc 33.3 g/dL (32.0-36.0); Mean Corpuscular Volume 89.1 fL (80.0-100.0); Mean Platelet Volume 8.7 fL (9.4-12.4); Platelet Count 309 K/uL (130-400); RDW Standard Deviation 45.2 fL (36.4-46.3); Red Blood Count 4.85 M/uL (4.20-5.40); White Blood Count 16.24 K/ul (4.8-10.8)
[2023-08-28] MEDS ORDERED: VANCOMYCIN CONSULT ACTIVE PRN (01:35)
[2023-08-28] MEDS: PIPERACILLIN/TAZOBACTAM 4.5 GM/100 ML BAG IV ONE (01:43)
--- NOTE | 2023-08-28 01:49 | History & Physical Report ---
Date of Service August 28, 2023 Assessment & Plan (1) Neuropathic ulcer of left foot: Plan: Pt is a 47 yo female with PMH of chronic neuropathic ulcer of left foot, DM, GERD, HTN, HLD, bipolar disorder, venous insufficiency, CAD (s/p thrombectomy 2018), and OUD presenting d/t fatigue and chills in the setting of a chronic open left foot wound. Acute infection of chronic left foot ulcer - hx of ORIF of left foot in 2021 - pt with recent hospitalization 06/29-07/04; treated with zosyn while hospitalized and discharged on augmentin (repeatedly only able to take 5 doses of this d/t N/V) - pt has been following with the wound clinic as outpatient; last visit 08/25 - lab work upon admission significant for leukocytosis to 16.24, BMP WNL, procal 0.04 - arterial doppler of LLE done on previous admission showed normal blood flow - MRI of the left foot 06/2023 showed no concern for osteomyelitis - blood cx pending - culture of wound from 07/11 grew staph aureus resistant to erythromycin; cultures from previous admission grew staph aureus resistant to erythromycin/clindamycin, group C strep resistant to macrolides- culture of wound ordered - s/p 2L bolus in ER; will give another 2L to complete sepsis fluids - pt received vanco x1 and zosyn x1 in ED; will continue with zosyn upon admission based on previous cultures - wound care consulted DM - no home medications; last A1c 6.0% 12/2022 - will recheck in AM; would recommend addition of insulin PRN based on A1c OUD - continue outpatient suboxone tx Chronic conditions HLD: continue atorvastatin 80 mg daily Bipolar disorder: continue rexulti 4 mg daily, clonazepam 0.5 mg daily PRN HTN/CAD: continue amlodipine 10 mg daily, aspirin 81mg daily, clonidine 0.1mg daily, plavix 75 mg daily, lisinopril 20 mg Narcolepsy: continue adderall 20 mg daily Celiac: gluten free diet Diet: carb consistent, gluten free, IVF Code: full DVT ppx: lovenox Dispo: admit to med/surg (2) Sepsis: (3) Bipolar disorder: (4) Hyperlipidemia: (5) Diabetes mellitus, type 2: (6) Hypertension: (7) Narcolepsy: (8) Coronary artery disease: (9) Celiac disease: History of Present Illness Chief Complaint: fatigue, chills, open left foot wound Primary Care Provider: Liya Stover MD Pt is a 47 yo female with PMH of chronic neuropathic ulcer of left foot, DM, GERD, HTN, HLD, bipolar disorder, venous insufficiency, CAD (s/p thrombectomy 2019), and OUD presenting d/t fatigue and chills in the setting of a chronic open left foot wound. Pt sleeping when I entered the room. She is arousable to talk but then quickly falls back to sleep. She relays she has been feeling unwell (fevers, chills, and fatigue) the past 2 days which prompted her to come to the hospital. She has noticed her foot wound getting worse but did not elaborate what that means. She last saw wound care 08/25. Pt was hospitalized at [facility] 06/30/2023-07/05/2023 for similar concerns. She was treated with zosyn during her hospitalization and was discharged with augmentin BID X10 days. Per note review, she did not tolerate the medication well and only took 5 doses of it because of this. In the ER, the pt received 2L of NS, vancomycin x1, and zosyn x1. Allergies Allergy/AdvReac Type Severity Reaction Status Date / Time nitrofurantoin Allergy Severe throat Verified 08/27/23 14:42 edema. ketorolac Allergy Intermediate Hot skin Verified 08/27/23 14:42 blotches. meperidine Allergy Intermediate hot skin Verified 08/27/23 14:42 blotches gluten Allergy Verified 08/27/23 14:42 amoxicillin [From Augmentin] AdvReac Intermediate Vomiting Verified 08/27/23 14:42 clavulanic acid AdvReac Intermediate Vomiting Verified 08/27/23 14:42 [From Augmentin] ciprofloxacin AdvReac Mild stomach Verified 08/27/23 14:42 issues Home Medications Medication Instructions Recorded Confirmed Type aspirin 81 mg tablet,delayed 81 mg PO QAM 10/13/20 08/28/23 History release (Adult Aspirin Regimen) vitamin B complex 1 cap PO QAM 10/13/20 08/28/23 History albuterol sulfate 90 mcg/actuation 2 puff inhalation Q6H PRN 04/25/21 08/28/23 Rx aerosol inhaler (Ventolin HFA) Shortness Of Breath #18 grams lisinopril 20 mg tablet 20 mg PO DAILY #90 tabs 06/25/22 08/28/23 Rx clonidine HCl 0.1 mg tablet 0.1 mg PO DAILY #90 tabs 08/30/22 08/28/23 Rx atorvastatin 80 mg tablet (Lipitor) 80 mg PO DAILY #90 tabs 11/26/22 08/28/23 Rx furosemide 20 mg tablet (Lasix) 20 mg PO DAILY PRN edema #90 tabs 02/06/23 08/28/23 Rx gabapentin 100 mg capsule 100 mg PO TID 02/06/23 08/28/23 History zolpidem 5 mg tablet 5 mg PO HS 02/06/23 08/28/23 History clopidogrel 75 mg tablet (Plavix) 75 mg PO DAILY #90 tabs 04/29/23 08/28/23 Rx dextroamphetamine-amphetamine 20 20 mg PO DAILY 05/10/23 08/28/23 History mg tablet (Adderall) Shower Chair #1 ea 05/20/23 08/28/23 Rx mometasone 50 mcg/actuation nasal 2 spray intranasal DAILY PRN nasal 06/24/23 08/28/23 Rx spray congestion #54 grams propranolol 80 mg capsule,24 80 mg PO BID #180 caps 06/28/23 08/28/23 Rx hr,extended release buprenorphine 8 mg-naloxone 2 mg 2.5 tab sublingual DAILY 06/30/23 08/28/23 History sublingual tablet lamotrigine 100 mg tablet 200 mg PO HS 06/30/23 08/28/23 History pantoprazole 40 mg tablet,delayed 40 mg PO BID 06/30/23 08/28/23 History release magnesium oxide 400 mg (241.3 mg 400 mg PO QAM #30 tabs 07/05/23 08/28/23 Rx magnesium) tablet tizanidine 4 mg tablet 4 mg PO QID PRN muscle spasticity 07/05/23 08/28/23 Rx #360 tabs cholecalciferol (vitamin D3) 1,250 50,000 unit PO .COMPLEX #12 caps 07/08/23 08/28/23 Rx mcg (50,000 unit) capsule ondansetron HCl 4 mg tablet 4 mg PO Q8H PRN Nausea #20 tabs 07/08/23 08/28/23 Rx ferrous sulfate 325 mg (65 mg 325 mg PO DAILY #90 tabs 07/16/23 08/28/23 Rx iron) tablet estradiol 2 mg tablet 2 mg PO DAILY #90 tabs 07/30/23 08/28/23 Rx amlodipine 10 mg tablet 10 mg PO DAILY #90 tabs 08/26/23 08/28/23 Rx brexpiprazole 4 mg tablet (Rexulti) 4 mg PO DAILY 08/28/23 08/28/23 History clonazepam 0.5 mg tablet 0.5 mg PO DAILY PRN Anxiety 08/28/23 08/28/23 History prazosin 2 mg capsule 2 mg PO HS 08/28/23 08/28/23 History Past Med/Surg History Problem List (Updated 08/28/23 @ 03:11 by Kel Dunaway PA-C) Coronary artery disease Sepsis Traumatic open wound of great toe with delayed healing Neuropathic ulcer of left foot (Acute) Lower extremity edema (Chronic) Venous ulcer of left leg (Acute) Hypomagnesemia Left leg cellulitis COVID-19 Wound of left foot (Acute) History of drug abuse (Chronic) h/o opiate abuse Narcolepsy (Chronic) History of thyroiditis (Chronic) Tobacco dependence due to cigarettes (Chronic) Vitamin D deficiency (Chronic) Morbid obesity (Chronic) Venous insufficiency (Chronic) Coronary artery clot (Chronic) LAD clot s/p thrombectomy 2018 Bipolar disorder (Chronic) Celiac disease (Chronic) Chronic migraine (Chronic) Chronic low back pain (Chronic) Lumbar facet joint syndrome (Chronic) Hyperlipidemia (Chronic) Hypertension (Chronic) Fibromyalgia (Chronic) Diabetes mellitus, type 2 (Chronic) hx of, prior to weightloss--no meds, diet controlled Medical History GERD (gastroesophageal reflux disease) Surgical History History of cardiac cath x3--02/02/19 @ [facility]--no stents, sent to [facility] [place], 02/03/19 @ [facility] [place], 02/05/19 @ [facility] [place] S/P lumbar laminectomy (12/2019) bilateral L5-S1 laminectomy and partial diskectomy due to lumbar disk disease with cauda equina syndrome History of colonoscopy History of surgery Removal of rectal cyst History of bilateral tubal ligation History of section x 3 History of total abdominal hysterectomy and bilateral salpingo-oophorectomy History of cholecystectomy Family History Grandmother (Maternal) Family history of diabetes mellitus Uncle Family history of diabetes mellitus Other Anxiety Breast cancer Cardiac disorder Depression Hypertension Myocardial infarction No family history of adverse response to anesthesia Social History Smoking Status: Current every day smoker Tobacco Type: Cigarettes Cigarettes Per Day: 20 a day; Second Hand Exposure: No; Do You Dip or Chew Tobacco: No; Hx Alcohol Use: No Hx Substance Use: Yes Non-Prescribed Medications Comment: last used meth 4 prior to hospital admission Last Used Substance: Days (ago) Substance Use Type Other:: medical marijuana Preferred Language: Italian Communication Ability: Effective Visual Impairment: No Limitations Hearing Ability: Normal Speech/Language Therapist Required: No Beliefs That Will Affect Care: None marital status: single Current Living Situation: Other Current Living Situation Comment: Lives with son current occupational status: disabled Feels Safe at Home: Yes Diet: regular Physical Activity Frequency: Does not Exercise Seatbelt Use: always Sunscreen Use: No Assistive Devices: None Review of Systems Review of Systems: As per HPI Physical Exam Constitutional: NAD, sleepy throughout encounter Eyes: Conjunctivae normal. Respiratory: CTA bilaterally. Non labored breathing. No rhonchi, wheezing, or crackles. Cardiovascular: RRR. No murmurs noted. Nonpitting edema of left foot/LE. Gastrointestinal (Abdomen): Nondistended Skin: Erythema and edema noted of left foot. Hot to touch. Bandage applied to foot covering entire foot and extending up to her knee. Neurologic: Sensation grossly intact. No FND appreciated. Psychiatric: Speech slow but of normal content. Flat affect. Results & Data Results & Data Vital Signs (Past 12 Hours) Vital Signs Temp Pulse Resp BP Pulse Ox O2 Del Method 08/28/23 00:04 96 Room Air 08/27/23 23:57 108 H 08/27/23 23:57 37.8 C H 105 H 16 150/82 H 96 Room Air Supervising Physician Co-Signing Physician Notes Patient seen and examined, chart reviewed, case discussed with Dr. Lux and I agree with the assessment and plan as above Resident Activity Tracking Resident Involvement: Resident Care Provided Care Provided: Adult Hospital Medicine (1) Neuropathic ulcer of left foot Non-pressure ulcer stage: with fat layer exposed Qualified Code(s): L97.522 - Non-pressure chronic ulcer of other part of left foot with fat layer exposed
[2023-08-28 01:50] LABS: Albumin Level 3.9 gm/dl (3.4-5.0); BUN Creatinine Ratio 11.9 (10-20); Basophils # (auto) 0.09 K/uL (0.00-0.20); Basophils % (auto) 0.6 %; Bilirubin Direct 0.2 mg/dl (0-0.2); Bilirubin,Total 0.9 mg/dl (0.2-1.0); Calcium 9.1 mg/dl (8.6-10.3); Creatinine Clr Calc Pharmacy 176.5 ml/min; Eosinophils # (auto) 0.02 K/uL (0.00-0.50); Eosinophils % (auto) 0.1 %; Est GFR (African American) 126.5 ml/min; Est GFR (Non-African American) 109.1 ml/min; Immature Granulocytes % (auto) 0.6 %; Lymphocytes # (auto) 0.78 K/uL (1.20-3.40); Lymphocytes % (auto) 4.8 %; Magnesium 1.4 mg/dl (1.7-2.4); Monocytes # (auto) 0.53 K/uL (0.11-0.59); Monocytes % (auto) 3.3 %; Neutrophils # (auto) 14.72 K/uL (1.40-6.50); Neutrophils % (auto) 90.6 %; Potassium 3.6 mmol/L (3.5-5.1); Total Protein 7.4 gm/dl (6.0-8.3)
[2023-08-28 01:53] LABS: Troponin I High Sensitivity 4.6 pg/ml (0-14)
[2023-08-28] MEDS ORDERED: ONDANSETRON INJ 2 MG/ML 2 ML VIAL IV PRN (02:18)
[2023-08-28] MEDS ORDERED: MELATONIN 3 MG TAB PO PRN (02:18)
[2023-08-28] MEDS ORDERED: POLYETHYLENE (MIRALAX) 17 GM PACK PO PRN (02:18)
[2023-08-28] MEDS: SODIUM CHLORIDE 0.9% 1,000 ML IV SCH ×2 (02:25→06:32)
--- NOTE | 2023-08-28 03:36 | Billing Data ---
Date of Service August 28, 2023 Coding Level of Care Code 20129 INT INP/OBS CARE
[2023-08-28] MEDS ORDERED: clonazePAM 0.5 MG TAB PO PRN (03:58)
[2023-08-28] MEDS: ACETAMINOPHEN 325 MG TAB PO PRN (04:10)
[2023-08-28] MEDS ORDERED: Nursing to Pharmacy Communication SCH (04:15)
[2023-08-28] MEDS: VANCOMYCIN HCL 2,750 MG in SODIUM CHLORIDE 0.9% 500 ML IV ONE (05:01)
--- NOTE | 2023-08-28 07:49 | XRay Report ---
XR chest 1V portable HISTORY: Sepsis COMPARISON: Chest 06/30/2023. FINDINGS: No pneumothorax. No pleural effusions. The cardiac silhouette remains borderline enlarged. No new focal lung consolidations to suggest a pneumonia. Stable prominence of interstitial markings. This is likely chronic. No evidence for pulmonary edema. IMPRESSION: No acute process. ACT 112: Negative or not required by law. Electronically signed by: Armond Patel M.D. 08/28/2023 7:48 AM
[2023-08-28] MEDS: ENOXAPARIN INJ 40 MG/0.4 ML SYR SQ SCH (07:58)
[2023-08-28] MEDS: GABAPENTIN 100 MG CAP PO SCH (08:07)
[2023-08-28] MEDS: BUPRENORPHINE/NALOXONE 8/2 MG TAB SL SCH (08:07)
[2023-08-28] MEDS: PROPRANOLOL HCL LA 80 MG CAPCR PO SCH (08:07)
[2023-08-28] MEDS: amLODIPine BESYLATE 5 MG TAB PO SCH (08:08)
[2023-08-28] MEDS: lisinopril 20 MG TAB PO SCH (08:08)
[2023-08-28] MEDS: ATORVASTATIN 40 MG TAB PO SCH (08:08)
[2023-08-28] MEDS: estradioL 1 MG TAB PO SCH (08:08)
[2023-08-28] MEDS: CLOPIDOGREL BISULFATE 75 MG TAB PO SCH (08:08)
[2023-08-28] MEDS: cloNIDine HCL 0.1 MG TAB PO SCH (08:08)
[2023-08-28] MEDS: PANTOprazole 40 MG TAB PO SCH (08:08)
[2023-08-28] MEDS: ASPIRIN 81 MG ECTAB PO SCH (08:08)
[2023-08-28 08:31] LABS: BUN Creatinine Ratio 13.2 (10-20); Calcium 7.4 mg/dl (8.6-10.3); Creatinine Clr Calc Pharmacy 195.7 ml/min; Est GFR (Non-African American) 113.1 ml/min; Potassium 3.5 mmol/L (3.5-5.1)
[2023-08-28 08:41] LABS: Hematocrit (blood only) 34.4 % (37.0-47.0); Hemoglobin 11.5 g/dl (12.0-16.0); Mean Corpuscular Hemoglobin 29.9 pg (25.0-34.0); Mean Corpuscular Hgb Conc 33.4 g/dL (32.0-36.0); Mean Corpuscular Volume 89.6 fL (80.0-100.0); Platelet Count 258 K/uL (130-400); RDW Coefficient of Variation 14.2 % (11.5-14.5); RDW Standard Deviation 46.3 fL (36.4-46.3); Red Blood Count 3.84 M/uL (4.20-5.40); White Blood Count 15.26 K/ul (4.8-10.8)
[2023-08-28 09:05] LABS: Estimated Average Glucose 117 mg/dl; Hemoglobin A1C 5.7 % (4.5-5.6)
--- NOTE | 2023-08-28 09:17 | Hospitalist Progress Note ---
Date of Service August 28, 2023 Assessment & Plan (1) Neuropathic ulcer of left foot: (2) Sepsis: (3) Bipolar disorder: (4) Hyperlipidemia: (5) Diabetes mellitus, type 2: (6) Hypertension: (7) Narcolepsy: (8) Coronary artery disease: (9) Celiac disease: Plan Pt is a 47 yo female with PMH of chronic neuropathic ulcer of left foot, DM, GERD, HTN, HLD, bipolar disorder, venous insufficiency, CAD (s/p thrombectomy 2018), and OUD admitted due to left LE cellulitis secondary to chronic ulcer in bottom of left foot. Acute infection of chronic left foot ulcer (neuropathic) Left LE cellulitis - hx of ORIF of left foot in 2021 - labs with leukocytosis of ~16, plus fever and tachycardia; meets SIRS - Blood culture pending - culture of wound from 07/11 with MSSA; repeat wound culture ordered - Will continue Zosyn given chronic wound in the setting of DM until culture results available May add Vancomycin if MRSA nares positive. - Foot MRI ordered to r/o OM - wound care consulted DM - no home medications; last A1c 6.0% 12/2022 - Hgb A1c 5.7% (08/28/23) - Will add SSI but hold off long acting OUD - continue outpatient suboxone tx Chronic conditions HLD: continue atorvastatin 80 mg daily Bipolar disorder: continue rexulti 4 mg daily, clonazepam 0.5 mg daily PRN HTN/CAD: continue amlodipine 10 mg daily, aspirin 81mg daily, clonidine 0.1mg daily, plavix 75 mg daily, lisinopril 20 mg Narcolepsy: continue adderall 20 mg daily Celiac: gluten free diet Diet: carb consistent, gluten free, IVF Code: full DVT ppx: lovenox Dispo: admit to med/surg Admission and Anticipated Discharge Date Admission Date: August 28, 2023 Subjective Patient laying in bed. Has been feeling weak, headache, chills, feverish. She was treated with Zosyn and then discharged on Augmentin after last admission (06/2023) for cellulitis in the left leg but did not take Augmentin consistently due to associated N/V. States she was given another antibiotic she cannot recall the name of but not much improvement. No chest pain, SOB, palpitations. Review of Systems Review of Systems: As per HPI Physical Exam Physical Exam: GENERAL: aaox3, febrile (Temp 38.8 C), NAD CARDIO: RRR, no r/m/g RESPIRATORY: CTA b/l, normal respiratory effort, no respiratory distress GI: soft, nontender, nondistended EXTREMITIES: no skin lesions, erythema or deformities in right lower extremity; left lower extremity erythematous, tender, and warm to the touch extending from her foot to mid-lower leg, left foot swelling with petechial rash on dorsum, ulcer on bottom of left foot covered by bandage Results & Data Results & Data Vital Signs (Past 12 Hours) Vital Signs Temp Pulse Pulse Resp BP BP Pulse Ox 08/28/23 07:26 38.2 C H 103 H 16 138/85 94 08/28/23 03:50 08/28/23 03:50 38.8 C H 103 H 16 142/84 H 95 08/28/23 00:04 96 08/27/23 23:57 108 H 08/27/23 23:57 37.8 C H 105 H 16 150/82 H 96 O2 Del Method 08/28/23 07:26 Room Air 08/28/23 03:50 Room Air 08/28/23 03:50 Room Air 08/28/23 00:04 Room Air 08/27/23 23:57 08/27/23 23:57 Room Air Resident Activity Tracking Resident Involvement: Resident Care Provided Care Provided: Adult Hospital Medicine
[2023-08-28] MEDS ORDERED: GLUCAGON FOR INJ 1 MG VIAL SQ PRN (09:56)
[2023-08-28] MEDS ORDERED: CARBOHYDRATES FOR HYPOGLYCEMIA PO PRN (09:56)
[2023-08-28] MEDS ORDERED: GLUCOSE 40% GEL 15 GM TUBE PO PRN (09:56)
[2023-08-28] MEDS ORDERED: GLUCOSE 10 TAB/TUBE PO PRN (09:56)
[2023-08-28] MEDS ORDERED: DEXTROSE 50% 50 ML SYRINGE IV PRN (09:56)
[2023-08-28] MEDS: MAGNESIUM SULFATE / D5W 1 GM/100 ML BAG IV SCH (10:05)
[2023-08-28] MEDS: DEXTROAMPHETAMINE/AMPHETAMINE IR 20 MG TAB PO SCH (10:05)
[2023-08-28] MEDS: LACTATED RINGER'S 1,000 ML IV SCH (10:05)
[2023-08-28] MEDS: PIPERACILLIN/TAZOBACTAM 4.5 GM in DEXTROSE 5% MINI-B 100 ML IV SCH (10:05)
[2023-08-28] MEDS: INSULIN ASPART PER UNIT CHARGE SC SCH (12:52)
[2023-08-28] MEDS: GADOBUTROL 65ML VIAL IV ONE (17:26)
--- NOTE | 2023-08-28 19:39 | Magnetic Resonance Report ---
MRI OF THE LEFT FOOT WITH AND WITHOUT CONTRAST CLINICAL HISTORY: Chronic wound; rule out osteomyelitis. COMPARISON STUDY: Left foot CT June 30, 2023. MRI of the left foot July 01, 2023. Left foot radiographs January 17, 2023. TECHNIQUE: Utilizing a 1.5 Anita magnet and dedicated coil, multiplanar, multi echo imaging of the le ft midfoot and forefoot was performed pre and postcontrast administration. Intravenous injection of 1 3.6 cc of Gadavist was uneventful. FINDINGS: Postoperative findings consistent with fusion of the first, second and third tarsometatarsa l joints is noted. Associated susceptibility artifact from the surgical hardware is present. Extensiv e dorsal subcutaneous edema of the left midfoot and forefoot is present. No rim-enhancing fluid colle ctions are identified to suggest abscess. Tracts within the subcutaneous tissues of the midfoot are s imilar to previous MRI and are likely postsurgical. A wound within the the plantar midfoot is present . This accounts for a small focus of subcutaneous T2 hyperintensity with enhancement. No drainable fl uid collection is present. T1 marrow signal is preserved within the left midfoot and forefoot. Mild i ncreased T2 signal within distal shaft of the fifth metatarsal is similar to previous MRI. IMPRESSION: 1. No evidence for osteomyelitis within the left midfoot or forefoot. 2. Extensive dorsal subcutaneous fluid within the left midfoot and forefoot. This may reflect edema o r cellulitis. 3. Plantar midfoot wound. No associated drainable fluid collection. 4. Status post left first through third tarsometatarsal joint fusion. ACT 112: Negative or not required by law. Electronically signed by: Elmo Stover M.D. 08/28/2023 7:37 PM
[2023-08-28] MEDS: lamoTRIgine 100 MG TAB PO SCH (20:14)
[2023-08-28] MEDS: ZOLPIDEM TARTRATE 5 MG TAB PO SCH (20:14)
[2023-08-28] MEDS: PRAZOSIN HCL 1 MG CAP PO SCH (20:15)
--- NOTE | 2023-08-29 00:23 | Electrocardiogram Report ---
Test Reason : Blood Pressure : / mmHG Vent. Rate : 106 BPM Atrial Rate : 106 BPM P-R Int : 154 ms QRS Dur : 074 ms QT Int : 326 ms P-R-T Axes : 060 040 043 degrees QTc Int : 433 ms Poor data quality, interpretation may be adversely affected Sinus tachycardia Otherwise normal ECG When compared with ECG of 30-JUN-2023 13:09, No significant change was found Confirmed by Ck Scanlon ([id number]) on 08/29/2023 12:22:57 AM Referred By: Confirmed By:Ck Scanlon
[2023-08-29] MEDS: HYDROmorphone INJ 0.5 MG/0.5 ML SYR IV ONE (05:42)
[2023-08-29 06:54] LABS: Hematocrit (blood only) 32.9 % (37.0-47.0); Hemoglobin 11.2 g/dl (12.0-16.0); Mean Corpuscular Hemoglobin 30.4 pg (25.0-34.0); Mean Corpuscular Volume 89.2 fL (80.0-100.0); Mean Platelet Volume 8.9 fL (9.4-12.4); Platelet Count 244 K/uL (130-400); RDW Coefficient of Variation 14.2 % (11.5-14.5); RDW Standard Deviation 46.4 fL (36.4-46.3); Red Blood Count 3.69 M/uL (4.20-5.40); White Blood Count 12.15 K/ul (4.8-10.8)
[2023-08-29 07:16] LABS: Estimated Average Glucose 120 mg/dl; Hemoglobin A1C 5.8 % (4.5-5.6)
[2023-08-29 08:24] LABS: Albumin Level 2.8 gm/dl (3.4-5.0); Bilirubin,Total 0.6 mg/dl (0.2-1.0); Calcium 7.8 mg/dl (8.6-10.3); Creatinine Clr Calc Pharmacy 207.5 ml/min; Est GFR (African American) 133.6 ml/min; Est GFR (Non-African American) 115.3 ml/min; Globulin 2.9 gm/dl (2.5-4.0); Potassium 3.5 mmol/L (3.5-5.1); Total Protein 5.7 gm/dl (6.0-8.3)
--- NOTE | 2023-08-29 09:26 | Hospitalist Progress Note ---
Date of Service August 29, 2023 Assessment & Plan (1) Neuropathic ulcer of left foot: (2) Sepsis: (3) Bipolar disorder: (4) Hyperlipidemia: (5) Diabetes mellitus, type 2: (6) Hypertension: (7) Narcolepsy: (8) Coronary artery disease: (9) Celiac disease: Plan Pt is a 47 yo female with PMH of chronic neuropathic ulcer of left foot, DM, GERD, HTN, HLD, bipolar disorder, venous insufficiency, CAD (s/p thrombectomy 2018), and OUD admitted due to left LE cellulitis secondary to chronic ulcer in bottom of left foot. Acute infection of chronic left foot ulcer (neuropathic) Left LE cellulitis - hx of ORIF of left foot in 2021 - labs with leukocytosis of ~20 on admission, plus fever and tachycardia; meets SIRS - WBC improved to 12.15; no fever since 8 pm last night; VSS - Blood culture negative to date - Foot MRI w/o evidence of OM - culture of wound from 07/11 with MSSA; repeat wound culture ordered but was not collected - Due to negative MRI and possibility of polymicrobial infection, will dc Zosyn and start Ceftriaxone MRSA nares negative If afebrile for 48 hours and WBC continues downtrend, will change to PO abx to continue after discharge - Wound care consulted DM - no home medications; last A1c 6.0% 12/2022 - Hgb A1c 5.7% (08/28/23) - Will add SSI but hold off long acting OUD - continue outpatient suboxone tx Chronic conditions HLD: continue atorvastatin 80 mg daily Bipolar disorder: continue rexulti 4 mg daily, clonazepam 0.5 mg daily PRN HTN/CAD: continue amlodipine 10 mg daily, aspirin 81mg daily, clonidine 0.1mg daily, plavix 75 mg daily, lisinopril 20 mg Narcolepsy: continue adderall 20 mg daily Celiac: gluten free diet Diet: carb consistent, gluten free, IVF Code: full DVT ppx: lovenox Dispo: Discharge back home once antibiotic regimen established Admission and Anticipated Discharge Date Admission Date: August 28, 2023 Supervising Physician Co-Signing Physician Notes I personally examined the patient and verified all allen points of history and exam, discussed case, and agree with decision making with Dr Centeno feeling OK no new complaints vitals noted nad heent nc at mmm foot and leg w diffuse petechial rash MRI noted sepsis due to diabetic foot infection/cellulitis - fortunately sepsis (WBC, fever, tachycardia) improving. infection appears to be improving. MRI without findings suggestive of abscess/osteomyelitis/tenosynovitis. continue current abx, local wound care, follow closely DVT proph - lovenox Subjective Patient lying in bed. Refers some pain in her LLE. Last night had significant headache not relieved by Tylenol. No headache this am. No fevers, chills, chest pain, SOB, or any new symptoms. Review of Systems Review of Systems: As per HPI Physical Exam Physical Exam: GENERAL: aaox3, febrile (Temp 38.8 C), NAD CARDIO: RRR, no r/m/g RESPIRATORY: CTA b/l, normal respiratory effort, no respiratory distress GI: soft, nontender, nondistended EXTREMITIES: no erythema or deformities in right lower extremity; left lower extremity erythematous, tender, and warm to the touch extending from her foot to proximal lower leg, left foot swelling with petechial rash on dorsum, new lesions in tips of 2nd and 3rd toe of left foot as well as small hematoma in medial aspect of 1st toe, ulcer on bottom of left foot covered by bandage Results & Data Results & Data Vital Signs (Past 12 Hours) Vital Signs Temp Pulse Resp BP Pulse Ox O2 Del Method 08/29/23 07:22 37.0 C 73 16 112/71 94 Room Air 08/29/23 05:21 36.8 C Resident Activity Tracking Resident Involvement: Resident Care Provided Care Provided: Adult Hospital Medicine
[2023-08-29] MEDS: cefTRIAXone SODIUM 2,000 MG/50 ML BAG IV SCH (13:40)
--- NOTE | 2023-08-29 16:45 | Billing Data ---
Date of Service August 29, 2023 Coding Level of Care Code 61443 SUB INP/OBS CARE
[2023-08-30 06:47] LABS: Basophils # (auto) 0.06 K/uL (0.00-0.20); Basophils % (auto) 0.7 %; Eosinophils # (auto) 0.26 K/uL (0.00-0.50); Hematocrit (blood only) 32.6 % (37.0-47.0); Hemoglobin 10.9 g/dl (12.0-16.0); Immature Granulocytes # (auto) 0.03 K/uL (0.01-0.20); Immature Granulocytes % (auto) 0.3 %; Lymphocytes # (auto) 1.91 K/uL (1.20-3.40); Lymphocytes % (auto) 22.1 %; Mean Corpuscular Hemoglobin 29.6 pg (25.0-34.0); Mean Corpuscular Hgb Conc 33.4 g/dL (32.0-36.0); Mean Corpuscular Volume 88.6 fL (80.0-100.0); Mean Platelet Volume 8.9 fL (9.4-12.4); Monocytes # (auto) 0.56 K/uL (0.11-0.59); Monocytes % (auto) 6.5 %; Neutrophils # (auto) 5.81 K/uL (1.40-6.50); Neutrophils % (auto) 67.4 %; Platelet Count 268 K/uL (130-400); RDW Coefficient of Variation 14.2 % (11.5-14.5); RDW Standard Deviation 45.7 fL (36.4-46.3); Red Blood Count 3.68 M/uL (4.20-5.40); White Blood Count 8.63 K/ul (4.8-10.8)
[2023-08-30 07:02] VITALS: BP 105/67; PULSE 73; RESP 17; TEMP 98.2; O2SAT 96
[2023-08-30 07:11] LABS: BUN Creatinine Ratio 10.6 (10-20); Calcium 7.8 mg/dl (8.6-10.3); Creatinine Clr Calc Pharmacy 220.7 ml/min; Est GFR (African American) 136.3 ml/min; Est GFR (Non-African American) 117.6 ml/min; Potassium 3.4 mmol/L (3.5-5.1)
--- NOTE | 2023-08-30 12:23 | Discharge Summary ---
Date of Service August 30, 2023 Admission HPI Per Admitting Provider Pt is a 47 yo female with PMH of chronic neuropathic ulcer of left foot, DM, GERD, HTN, HLD, bipolar disorder, venous insufficiency, CAD (s/p thrombectomy 2019), and OUD presenting d/t fatigue and chills in the setting of a chronic open left foot wound. Pt sleeping when I entered the room. She is arousable to talk but then quickly falls back to sleep. She relays she has been feeling unwell (fevers, chills, and fatigue) the past 2 days which prompted her to come to the hospital. She has noticed her foot wound getting worse but did not elaborate what that means. She last saw wound care 08/25. Pt was hospitalized at [facility] 06/30/2023-07/05/2023 for similar concerns. She was treated with zosyn during her hospitalization and was discharged with augmentin BID X10 days. Per note review, she did not tolerate the medication well and only took 5 doses of it because of this. In the ER, the pt received 2L of NS, vancomycin x1, and zosyn x1. Admission Exam Per Admitting Provider Constitutional: NAD, sleepy throughout encounter Eyes: Conjunctivae normal. Respiratory: CTA bilaterally. Non labored breathing. No rhonchi, wheezing, or crackles. Cardiovascular: RRR. No murmurs noted. Nonpitting edema of left foot/LE. Gastrointestinal (Abdomen): Nondistended Skin: Erythema and edema noted of left foot. Hot to touch. Bandage applied to foot covering entire foot and extending up to her knee. Neurologic: Sensation grossly intact. No FND appreciated. Psychiatric: Speech slow but of normal content. Flat affect. Principal Diagnosis Left lower extremity cellulitis Discharge Exam GENERAL: aaox3, afebrile, NAD CARDIO: RRR, no r/m/g RESPIRATORY: CTA b/l, normal respiratory effort, no respiratory distress GI: soft, nontender, nondistended EXTREMITIES: no erythema or deformities in right lower extremity; left lower extremity erythematous, tender, and warm to the touch extending from her foot to proximal lower leg with improvement compared to yesterday's exam, left foot swelling with petechial rash on dorsum, new lesions in tips of 2nd and 3rd toe of left foot as well as small hematoma in medial aspect of 1st toe Discharge Data Allergies Allergy/AdvReac Type Severity Reaction Status Date / Time nitrofurantoin Allergy Severe throat Verified 08/27/23 14:42 edema. ketorolac Allergy Intermediate Hot skin Verified 08/27/23 14:42 blotches. meperidine Allergy Intermediate hot skin Verified 08/27/23 14:42 blotches gluten Allergy Verified 08/27/23 14:42 amoxicillin [From Augmentin] AdvReac Intermediate Vomiting Verified 08/27/23 14:42 clavulanic acid AdvReac Intermediate Vomiting Verified 08/27/23 14:42 [From Augmentin] ciprofloxacin AdvReac Mild stomach Verified 08/27/23 14:42 issues Consultations 08/28/23 01:41 ED Decision to Admit Stat Ordered Studies 08/28/23 10:40 MRI Foot [MR foot LT wo/w con] Routine Hospital Course (1) Neuropathic ulcer of left foot: (2) Sepsis: (3) Bipolar disorder: (4) Hyperlipidemia: (5) Diabetes mellitus, type 2: (6) Hypertension: (7) Narcolepsy: (8) Coronary artery disease: (9) Celiac disease: Plan Pt is a 47 yo female with PMH of chronic neuropathic ulcer of left foot, DM, GERD, HTN, HLD, bipolar disorder, venous insufficiency, CAD (s/p thrombectomy 2019), and OUD admitted due to left LE cellulitis secondary to chronic ulcer in bottom of left foot. Acute infection of chronic left foot ulcer (neuropathic) -- Acute, stable Left LE cellulitis -- Acute, stable, improving Leukocytosis resolved; Afebrile for > 30 hours - Blood culture negative to date - Foot MRI w/o evidence of OM - MRSA nares negative, so no coverage added - Will discharge with 8 more days of Cefpodoxime 400 mg bid to complete 10 days of therapy. - Advised to have f/u with PCP at some point next week to ensure adequate resolution of symptoms DM -- Chronic, stable - no home medications; last A1c 6.0% 12/2022 - Hgb A1c 5.7% (08/28/23) OUD -- Chronic, stable - continue outpatient suboxone tx Chronic conditions HLD: continue atorvastatin 80 mg daily Bipolar disorder: continue rexulti 4 mg daily, clonazepam 0.5 mg daily PRN HTN/CAD: continue amlodipine 10 mg daily, aspirin 81mg daily, clonidine 0.1mg daily, plavix 75 mg daily, lisinopril 20 mg Narcolepsy: continue adderall 20 mg daily Celiac: gluten free diet Will discharge home today. Total Time Total Time Spent Total Time Spent (In Minutes): <30 Discharge Plan Discharge Items Patient Disposition: Home - Self-Care Reason For Visit: CELLULITIS, SEPSIS Discharge Diagnosis: Cellulitis Activity: Resume your previous activity Non-emergency contact: Primary Care Provider Call non-emergency contact if: your symptoms worsen and your temperature is above 101 Follow-up/Referrals: Liya Stover MD [Primary Care Provider] - 09/02/23 10:30 am (appointment with Ruby Tristan on Saturday September 02, 2023 at 1030.) Diet: Carb Consistent or DM2 and Gluten Free Addtl Attending Provider Instructions: You were admitted for management of cellulitis in your left lower leg. You were treated with intravenous antibiotics. Your immune cells went back down to normal range and your vital signs returned to normal, and you have not had a fever in almost two days. Therefore, we will be discharging you today with a similar antibiotic that can be taken by mouth called Cefpodoxime. Please take Cefpodoxime 400 mg by mouth two times a day for 8 more days. I would advise you take this antibiotic with meals since. I would also advise you follow up with your primary care provider at some point next week to make sure your infection is resolving. A discharge summary will be sent to your primary care physician to ensure continuity of care. Please bring this discharge summary with you to your next office appointment so that your provider can review it at that time. CONTACT YOUR PRIMARY CARE PROVIDER if you experience any of the following: Worsening of symptoms Fever, chills, or fatigue Difficulty following your treatment plan, or difficulty taking medications CALL 911 OR GO TO THE EMERGENCY DEPARTMENT if you experience any of the following: Sudden, severe abdominal pain or nausea/vomiting Severe chest pain, or chest pain that radiates (moves) to your jaw or arm Sudden, severe shortness of breath or difficulty breathing Thank you for allowing us to participate in your care.yo Pending Studies at Discharge: No Stand-Alone Forms: My [employer], Smoking Cessation Medications and DC Order Prescriptions: New cefpodoxime 200 mg tablet 400 mg PO Q12H 8 Days Qty: 32 0RF Rx Instructions: must administer with a meal/food Continued albuterol sulfate [Ventolin HFA] 90 mcg/actuation HFA aerosol inhaler 2 puff INHALATION Q6H PRN (Reason: Shortness Of Breath) Qty: 18 5RF lisinopril 20 mg tablet 20 mg PO DAILY Qty: 90 3RF clonidine HCl 0.1 mg tablet 0.1 mg PO DAILY Qty: 90 3RF atorvastatin [Lipitor] 80 mg tablet 80 mg PO DAILY Qty: 90 3RF clopidogrel [Plavix] 75 mg tablet 75 mg PO DAILY Qty: 90 3RF (DME) Shower Chair Misc See Rx Instructions .Route Qty: 1 0RF Rx Instructions: As directed mometasone 50 mcg/actuation spray,non-aerosol 2 spray INTNAS DAILY PRN (Reason: nasal congestion) Qty: 54 3RF propranolol 80 mg capsule,extended release 24hr 80 mg PO BID Qty: 180 3RF cholecalciferol (vitamin D3) 1,250 mcg (50,000 unit) capsule 50,000 unit PO .COMPLEX Qty: 12 1RF Rx Instructions: 50,000 units orally once weekly; SATURDAY ondansetron HCl 4 mg tablet 4 mg PO Q8H PRN (Reason: Nausea) Qty: 20 0RF Rx Instructions: TAKE ONE TABLET BY MOUTH EVERY 8 HOURS NEEDED FOR NAUSEA. estradiol 2 mg tablet 2 mg PO DAILY Qty: 90 3RF amlodipine 10 mg tablet 10 mg PO DAILY Qty: 90 3RF dextroamphetamine-amphetamine [Adderall] 20 mg tablet 20 mg PO DAILY zolpidem 5 mg tablet 5 mg PO HS furosemide [Lasix] 20 mg tablet 20 mg PO DAILY PRN (Reason: edema) Qty: 90 3RF gabapentin 100 mg capsule 100 mg PO TID ferrous sulfate 325 mg (65 mg iron) tablet 325 mg PO DAILY Qty: 90 3RF Rx Instructions: 1 tablet daily aspirin [Adult Aspirin Regimen] 81 mg tablet,delayed release (DR/EC) 81 mg PO QAM vitamin B complex Capsule 1 cap PO QAM prazosin 2 mg capsule 2 mg PO HS clonazepam 0.5 mg tablet 0.5 mg PO DAILY PRN (Reason: Anxiety) Rexulti 4 mg tablet 4 mg PO DAILY buprenorphine-naloxone 8-2 mg tablet, sublingual 2.5 tab SUBLINGUAL DAILY pantoprazole 40 mg tablet,delayed release (DR/EC) 40 mg PO BID Rx Instructions: TAKE 1 TABLET TWICE DAILY lamotrigine 100 mg tablet 200 mg PO HS magnesium oxide 400 mg (241.3 mg magnesium) Tablet 400 mg PO QAM Qty: 30 0RF tizanidine 4 mg tablet 4 mg PO QID PRN (Reason: muscle spasticity) Qty: 360 1RF Discharge Orders: Discharge Order (Routine); Ordered 08/30/23 Ordered By: Dariela Callaway/Other Patient Handouts: Cefpodoxime Oral Tablet, Prediabetes, 5 Steps f or Eating Healthier Admission Data Admit Date/Time: 08/28/23 02:18 Attending Provider: Mike Carvajal Admit Provider: Racheal Lux Primary Care Provider: Liya Stover Other Providers: Cheryl Cuevas Other Interventions: Discharge Summary Assessment (RN) Last Done: 08/30/23 11:58 Supervising Physician Co-Signing Physician Notes I personally examined the patient and verified all allen points of history and exam, discussed case, and agree with decision making with Dr Centeno feeling OK no new complaintsreally wants to get home today. vitals noted nad heent nc at mmm foot and leg w diffuse petechial rash, Nontender, no new lesions, no erythema, coalescing in a way that appears most consistent with resolving infection. MRI noted sepsis due to diabetic foot infection/cellulitis - fortunately sepsis (WBC, fever, tachycardia) improved. infection appears to be improving nicely. MRI without findings suggestive of abscess/osteomyelitis/tenosynovitis. Home on oral cefpodoxime, has wound care appointment on Saturday. Continue close outpat ient follow-up, but seems stable for home DVT proph - lovenox Resident Activity Tracking Resident Involvement: Resident Care Provided Care Provided: Adult Hospital Medicine
--- NOTE | 2023-08-30 16:23 | Billing Data ---
Date of Service August 30, 2023 Coding Level of Care Code 08691 IN/OBS DISCH 30 MIN/LESS
== END 2023-08-30 14:27 | disposition home or self-care (01) | DRG 872 ==
LOC: ED 23:48 → 3N 08-28 02:18 → SUATTDRO 08-28 02:18 → 3N 08-28 03:47

== ENCOUNTER 2024-04-09 08:16 | Inpatient (IN) ==
--- NOTE | 2024-04-09 08:41 | Emergency Department Note ---
Impression & Plan Open wound of left foot, History of drug abuse, Cellulitis ED Provider Note NAME: GLEN DOLAN AGE: 48 SEX: F : 1975 ARRIVES VIA: Ambulance INFORMANT: Patient, nursing report ED PROVIDER(S): Denny Pete MD CHIEF COMPLAINT: Fever, chills, headache, recent foot surgery with possible foul-smelling MEDICAL DECISION MAKING: Patient presents due to concern for fever with recent foot surgery. Patient also unfortunately has a history of IV drug abuse recently using this week with associated fever and does have a heart murmur noted on exam. IV was established and blood work was obtained patient was ordered IV vancomycin and IV Zosyn. Patient also did have plain x-rays performed of the chest and foot. The patient also did have ESR and CRP's performed procalcitonin and lactate as well as blood cultures. Wound cultures also obtained from the left foot open wound. Patient with a normal white count hemoglobin and platelet count. The patient's kidney function unremarkable hypokalemia noted at 2.8 patient's magnesium and calcium also low. Patient's initial troponin of 20. Patient's EKG may show some subtle nonspecific changes. The patient denies any chest pains or shortness of breath. Procalcitonin is not elevated. Patient's BioFire negative. The patient's plain x-rays of the chest are negative. The patient's foot x-ray that showed the wound but without evidence of obvious acute osteomyelitis. Hardware intact. I did inform the patient the findings and recommendation patient admission and treatment. The patient was initially requesting to go home. After further discussion of the risks and benefits the patient was amenable to staying inpatient after discussion with both myself and Dr. Greenwood the inpatient medicine physician. Additional treatment deferred to the inpatient service. Repeat troponin was improved. Patient had declined a CT of the head. Nonfocal neurologic exam upon my assessment was not meningitic. Discussion w/ other healthcare providers: Dr. Greenwood inpatient medicine service Prior /Outside records reviewed: I did review prior culture result from March 25 which showed Klebsiella E. coli and Pseudomonas. All sensitive to ciprofloxacin. Also sensitive to Zosyn I reviewed part of an operative report from March 26 is from injury Edu. History of left foot Charcot neuropathy and chronic osteomyelitis. Patient did have a left foot excisional debridement of wound with bone biopsy left foot hardware removal and left foot bone biopsy. I did review primary care visit from Franci Ang from April 08. Patient had complained of some upper respiratory symptoms negative COVID flu. Differential diagnosis: Dehydration, UTI, pneumonia, metabolic derangment, electrolyte abnormalities, hypovolemia, anemia, cellulitis among others were considered. Diagnostics, as interpreted by me: ECG: Normal sinus rhythm, heart rate of 73, normal intervals, normal axis no obvious ST elevations. Cardiac monitoring: An order was placed for continuous cardiac monitoring. The monitor shows a rate of 65 with sinus rhythm. Patient was placed on pulse oximetry Medical decision rules: None Imaging studies: I informally interpreted the patient's chest x-ray does not show obvious pneumonia or pneumothorax with formal report to follow. HPI: Patient presents due to concern for fevers chills and bodyaches. Review of prior records show negative recent COVID and flu. Patient reports that she has had a headache for about the last 7 days currently about a 5 or 6 out of 10. Patient did have a recent foot surgery completed on March 26. The patient has been on Cipro. The patient states that she has had several falls but this is likely secondary to whether plus mobility status status post procedures the patient was wearing a boot outside stenosis with her dog. The patient denies any head strike or LOC and does not take any blood thinner medications. Patient does admit to using methamphetamines and had been sober for about 7 months but use most recently on Saturday and Saturday. Patient denies any prior history of heart murmur. Patient without chest pain or shortness of breath. Patient denies any numbness ting or focal weakness. Patient states that her Tmax is 102 at home. The patient is taking ibuprofen and Tylenol. Patient reports that she thought she had some foul-smelling drainage that she described as bloody, from her left foot. Patient reports that she did have a prior fracture status post repair but subsequently developed a wound to the plantar aspect of the foot and subsequently did have a procedure completed recently. Patient states that this was completed by Dr. Sorensen. PAST MEDICAL HISTORY: See Below PAST SURGICAL HISTORY: See Below SOCIAL HISTORY: See Below HOME MEDICATIONS: See Below ALLERGIES: See Below VITALS: See Below PHYSICAL EXAMINATION: GENERAL: NAD, non-toxic. EYE EXAM: Normal conjunctiva. PERRL, no anisocoria and EOM's grossly intact w/o pain. OROPHARYNX: Moist mucus membranes, grossly normal dentition. NECK: Trachea midline, no stridor. LUNGS: Clear to auscultation. Normal chest wall mechanics. HEART: NSR, systolic ejection murmur. ABDOMEN: Abdomen soft, non-tender, no masses, no rebound or guarding. BACK: No CVA TTP. SKIN: No rashes and no bruising. UPPER EXTREMITIES: Likely track yates noted in the right AC no obvious surrounding redness or pain. LOWER EXTREMITIES: Left foot with sutures noted to the dorsal aspect, circumferential wound probes to bone on the plantar surface, foul-smelling. No obvious crepitus left foot. Well-perfused. NEURO EXAM: A&O x3, cranial nerves II-XII grossly intact, normal speech, moves all 4 extremities. Good [id number], no drift and no sensory deficits. Past Med/Surg History Problem List (Updated 04/09/24 @ 15:11 by Denny Pete MD) Cellulitis (Acute) Open wound of left foot (Acute) Traumatic open wound of great toe with delayed healing (Acute) Lower extremity edema (Chronic) Venous ulcer of left leg (Acute) Hypomagnesemia Left leg cellulitis COVID-19 History of drug abuse (Chronic) h/o opiate abuse Wound of left foot (Acute) Tobacco dependence due to cigarettes (Chronic) Vitamin D deficiency (Chronic) Morbid obesity (Chronic) Venous insufficiency (Chronic) Coronary artery clot (Chronic) LAD clot s/p thrombectomy 2019 Chronic migraine (Chronic) Chronic low back pain (Chronic) History of thyroiditis (Chronic) Fibromyalgia (Chronic) Lumbar facet joint syndrome (Chronic) Medical History Cauda equina syndrome Fibromyalgia Arthritis Kidney stone current problem Hx of drug abuse narcotic abuse 2020>reason for suboxone Anemia Post traumatic stress disorder Attention deficit disorder (ADD) Anxiety and depression Restless leg syndrome Neuropathy Migraine Tachycardia reason for propranolol (followed by Dr. Greenfield) Hx of diabetes mellitus hx borderline Diabetes H/O blood clots in heart>dx 2019 *reason for plavix History of pneumonia dx 01/2024 Asthma no recent flare ups "no inhalers" Coronary artery disease Neuropathic ulcer of left foot reason for surgery tomorrow Narcolepsy Bipolar disorder Celiac disease Hyperlipidemia Hypertension GERD (gastroesophageal reflux disease) Surgical History History of esophagogastroduodenoscopy (EGD) History of tonsillectomy History of cardiac cath x3--02/02/19 @ [facility]--no stents, [place] [facility] [place] [facility] [place] [facility] [place] laminectomy (12/2019) bilateral L5-S1 laminectomy and partial diskectomy due to lumbar disk disease with cauda equina syndrome History of colonoscopy History of surgery Removal of rectal cyst History of bilateral tubal ligation History of section x 3 History of total abdominal hysterectomy and bilateral salpingo-oophorectomy History of cholecystectomy Family History Grandmother (Maternal) Family history of diabetes mellitus Uncle Family history of diabetes mellitus Other Anxiety Breast cancer Cardiac disorder Depression Hypertension Myocardial infarction No family history of adverse response to anesthesia Social History Smoking Status: Never smoker Tobacco Type: Cigarettes Age Started Using Tobacco: 26; packs per day: 0.01; Cigarettes Per Day: 20 cig per day>advised; Second Hand Exposure: No; Do You Dip or Chew Tobacco: No; Hx Alcohol Use: No Hx Substance Use: No Preferred Language: Citizen Of [place] Communication Ability: Effective Visual Impairment: No Limitations Hearing Ability: Normal Ticket Marker Required: No Beliefs That Will Affect Care: None marital status: single Current Living Situation: Family Current Living Situation Comment: with son current occupational status: disabled Feels Safe at Home: Yes Diet: regular Physical Activity Frequency: Does not Exercise Seatbelt Use: always Sunscreen Use: No Assistive Devices: Brace/Splint/Immobilizer Allergies Allergies Allergy/AdvReac Type Severity Reaction Status Date / Time nitrofurantoin Allergy Severe throat Verified 04/08/24 13:09 edema. ketorolac Allergy Intermediate Hot skin Verified 04/08/24 13:09 blotches. meperidine Allergy Intermediate hot skin Verified 04/08/24 13:09 blotches nickel Allergy Mild Rash Verified 04/08/24 13:09 gluten Allergy celiac's Verified 04/08/24 13:09 amoxicillin [From Augmentin] AdvReac Intermediate Vomiting Verified 04/08/24 13:09 clavulanic acid AdvReac Intermediate Vomiting Verified 04/08/24 13:09 [From Augmentin] Home Meds Home Medications Medication Instructions Recorded Confirmed aspirin 81 mg tablet,delayed 81 mg PO QAM 10/13/20 04/09/24 release (Adult Aspirin Regimen) vitamin B complex 1 cap PO QAM 10/13/20 04/09/24 gabapentin 100 mg capsule 300 mg PO HS 02/06/23 04/09/24 zolpidem 5 mg tablet 5 mg PO HS PRN Sleep 02/06/23 04/09/24 dextroamphetamine-amphetamine 20 20 mg PO QAM 05/10/23 04/09/24 mg tablet (Adderall) buprenorphine 8 mg-naloxone 2 mg 2.5 tab sublingual DAILY 06/30/23 04/09/24 sublingual tablet lamotrigine 100 mg tablet 200 mg PO HS 06/30/23 04/09/24 pantoprazole 40 mg tablet,delayed 40 mg PO BID 06/30/23 04/09/24 release brexpiprazole 4 mg tablet (Rexulti) 4 mg PO QAM 08/28/23 04/09/24 clonazepam 0.5 mg tablet 0.5 mg PO DAILY PRN Anxiety 08/28/23 04/09/24 prazosin 2 mg capsule 1 mg PO HS 08/28/23 04/09/24 amlodipine 10 mg tablet 10 mg PO QAM 03/24/24 04/09/24 ascorbic acid (vitamin C) 1,000 mg 1 g PO QAM 03/24/24 04/09/24 tablet (Vitamin C) atorvastatin 80 mg tablet (Lipitor) 80 mg PO QPM 03/24/24 04/09/24 clonidine HCl 0.1 mg tablet 0.1 mg PO HS 03/24/24 04/09/24 estradiol 2 mg tablet 2 mg PO QAM 03/24/24 04/09/24 multivitamin 1 tab PO QAM 03/24/24 04/09/24 cholecalciferol (vitamin D3) 1,250 50,000 unit PO WK 04/09/24 04/09/24 mcg (50,000 unit) capsule clopidogrel 75 mg tablet (Plavix) 75 mg PO QAM 04/09/24 04/09/24 ferrous sulfate 325 mg (65 mg 325 mg PO UD 04/09/24 04/09/24 iron) tablet Previous Rx's Medication Instructions Recorded furosemide 20 mg tablet (Lasix) 20 mg PO DAILY PRN edema #90 tabs 02/06/23 Shower Chair #1 ea 05/20/23 mometasone 50 mcg/actuation nasal 2 spray intranasal DAILY PRN nasal 06/24/23 spray congestion #54 grams propranolol 80 mg capsule,24 80 mg PO BID #180 caps 06/28/23 hr,extended release ondansetron HCl 4 mg tablet 4 mg PO Q8H PRN Nausea #20 tabs 02/13/24 tizanidine 4 mg tablet 4 mg PO QID PRN muscle spasticity 03/18/24 #360 tabs Results & Data (ED) Vital Signs Vital Signs - 24 hr 04/09/24 08:20 04/09/24 08:39 04/09/24 08:45 Temperature 37.1 C Temperature Source Oral Pulse Rate 84 81 78 Pulse Rate from SpO2 Sensor 81 78 Pulse Rhythm Respiratory Rate 16 14 14 Respiratory Effort / Characteristics Non-Labored Spontaneous Respiratory Depth Normal Blood Pressure 136/74 Blood Pressure [Right Arm] Blood Pressure Mean 94 Blood Pressure Mean [Right Arm] Pulse Oximetry 94 93 93 Oxygen Delivery Method Room Air Sepsis Recent Fever Within 48 Hours Yes Sepsis New/Unexplained Change in Mental Status No Sepsis Action Taken by Nursing No Action Required 04/09/24 09:00 04/09/24 09:12 04/09/24 09:24 Temperature Temperature Source Pulse Rate 78 77 78 Pulse Rate from SpO2 Sensor 77 79 Pulse Rhythm Respiratory Rate 17 23 Respiratory Effort / Characteristics Respiratory Depth Blood Pressure Blood Pressure [Right Arm] Blood Pressure Mean Blood Pressure Mean [Right Arm] Pulse Oximetry 93 93 Oxygen Delivery Method Sepsis Recent Fever Within 48 Hours Sepsis New/Unexplained Change in Mental Status Sepsis Action Taken by Nursing 04/09/24 09:30 04/09/24 10:00 04/09/24 10:01 Temperature Temperature Source Pulse Rate 74 72 Pulse Rate from SpO2 Sensor 74 Pulse Rhythm Regular Respiratory Rate 16 18 Respiratory Effort / Characteristics Respiratory Depth Blood Pressure Blood Pressure [Right Arm] 136/74 Blood Pressure Mean Blood Pressure Mean [Right Arm] 94 Pulse Oximetry 93 93 Oxygen Delivery Method Room Air Sepsis Recent Fever Within 48 Hours Sepsis New/Unexplained Change in Mental Status Sepsis Action Taken by Nursing 04/09/24 10:06 04/09/24 10:18 04/09/24 10:39 Temperature Temperature Source Pulse Rate 72 74 70 Pulse Rate from SpO2 Sensor 72 74 70 Pulse Rhythm Respiratory Rate 22 18 22 Respiratory Effort / Characteristics Respiratory Depth Blood Pressure Blood Pressure [Right Arm] Blood Pressure Mean Blood Pressure Mean [Right Arm] Pulse Oximetry 93 94 91 Oxygen Delivery Method Sepsis Recent Fever Within 48 Hours Sepsis New/Unexplained Change in Mental Status Sepsis Action Taken by Nursing 04/09/24 10:48 04/09/24 11:48 Temperature Temperature Source Pulse Rate 70 70 Pulse Rate from SpO2 Sensor 70 70 Pulse Rhythm Respiratory Rate 18 Respiratory Effort / Characteristics Respiratory Depth Blood Pressure 130/70 Blood Pressure [Right Arm] Blood Pressure Mean 90 Blood Pressure Mean [Right Arm] Pulse Oximetry 91 94 Oxygen Delivery Method Sepsis Recent Fever Within 48 Hours Sepsis New/Unexplained Change in Mental Status Sepsis Action Taken by [facility] Medications Current Medication List: was personally reviewed by me Laboratory Data Attestation: I reviewed the patient's lab results. 04/09/24 08:25 04/09/24 08:25 Lab Results 04/09/24 04/09/24 04/09/24 Range/Units 08:25 09:07 09:13 WBC 8.34 (4.8-10.8) K/ul RBC 3.84 L (4.20-5.40) M/uL Hgb 12.0 (12.0-16.0) g/dl Hct 34.3 L (37.0-47.0) % MCV 89.3 (80.0-100.0) fL MCH 31.3 (25.0-34.0) pg MCHC 35.0 (32.0-36.0) g/dL RDW Std Deviation 42.6 (36.4-46.3) fL RDW Coeff of Ministerio 13.1 (11.5-14.5) % Plt Count 353 (130-400) K/uL MPV 9.0 L (9.4-12.4) fL Immature Gran % (Auto) 0.4 % Neut % (Auto) 68.6 % Lymph % (Auto) 17.0 % [place] % (Auto) 9.8 % Eos % (Auto) 3.4 % Baso % (Auto) 0.8 % Neut # (Auto) 5.72 (1.40-6.50) K/uL Lymph # (Auto) 1.42 (1.20-3.40) K/uL [place] # (Auto) 0.82 H (0.11-0.59) K/uL Eos # (Auto) 0.28 (0.00-0.50) K/uL Baso # (Auto) 0.07 (0.00-0.20) K/uL Immature Gran # (Auto) 0.03 (0.01-0.20) K/uL ESR 83 H (0-20) mm/hr Sodium 139 (136-145) mmol/L Potassium 2.8 L (3.5-5.1) mmol/L Chloride 104 (98-107) mmol/L Carbon Dioxide 25 (21-32) mmol/L Anion Gap 10 (3-11) BUN 6 (6-23) mg/dl Creatinine 0.56 L (0.6-1.2) mg/dl Est Cr Clr Drug Dosing 181.5 ml/min eGFR 112.51 BUN/Creatinine Ratio 10.7 (10-20) Glucose 97 (70-99(Fasting)) mg/dl Lactate 0.7 (0.4-2.0) mmol/L Calcium 8.2 L (8.6-10.3) mg/dl Magnesium 1.4 L (1.7-2.4) mg/dl Total Bilirubin 0.6 (0.2-1.0) mg/dl Direct Bilirubin 0.1 (0-0.2) mg/dl AST 15 (13-39) U/L ALT 10 (7-52) U/L Alkaline Phosphatase 147 H (34-104) U/L Troponin I High Sens 20.3 H (0-14) pg/ml C-Reactive Protein 18.44 H (0-0.5) mg/dl Total Protein 6.4 (6.0-8.3) gm/dl Albumin 3.1 L (3.4-5.0) gm/dl Procalcitonin 0.08 (0-0.5) ng/ml Urine Color Dark Yellow Urine Appearance Clear (Clear) Urine pH 6.0 (4.5-7.5) Ur Specific [place] 1.026 (1.000-1.030) Urine Protein 1+ H (Negative) Urine Glucose (UA) Negative (Negative) Urine Ketones Trace H (Negative) Urine Blood Negative (Negative) Urine Nitrite Negative (Negative) Urine Bilirubin 1+ H (Negative) Urine Urobilinogen Negative (Negative) Ur Leukocyte Esterase Trace H (Negative) Urine WBC (Auto) 0-5 (0-5) /hpf Urine RBC (Auto) 0-2 (0-2) /hpf U Hyaline Cast (Auto) 0-2 (0-2) /lpf U Epithel Cells (Auto) 11-20 H (0-2) /hpf Urine Bacteria (Auto) 1+ H (None Seen) Urine Mucus Present A (None Prsent) Urine Yeast Present A (None Prsent) Adenovirus (PCR) (NotDetected) B. pertussis DNA (PCR) (NotDetected) B.parapertussis DNA PCR (NotDetected) C. pneumoniae DNA (PCR) (NotDetected) Coronavirus OC43 (PCR) (NotDetected) Coronavirus HKU1 (PCR) (NotDetected) Coronavirus 229E (PCR) (NotDetected) SARS-CoV-2 (PCR) (NotDetected) Coronavirus NL63 (PCR) (NotDetected) Human Metapneumovir PCR (NotDetected) Influenza Type A (PCR) (NotDetected) Influenza Type B (PCR) (NotDetected) M. pneumoniae (PCR) (NotDetected) Parainfluenza 1 (PCR) (NotDetected) Parainfluenza 2 (PCR) (NotDetected) Parainfluenza 3 (PCR) (NotDetected) Parainfluenza 4 (PCR) (NotDetected) RSV (PCR) (NotDetected) Entero/Rhino (PCR) (NotDetected) 04/09/24 04/09/24 Range/Units 11:00 11:49 WBC (4.8-10.8) K/ul RBC (4.20-5.40) M/uL Hgb (12.0-16.0) g/dl Hct (37.0-47.0) % MCV (80.0-100.0) fL MCH (25.0-34.0) pg MCHC (32.0-36.0) g/dL RDW Std Deviation (36.4-46.3) fL RDW Coeff of Ministerio (11.5-14.5) % Plt Count (130-400) K/uL MPV (9.4-12.4) fL Immature Gran % (Auto) % Neut % (Auto) % Lymph % (Auto) % [place] % (Auto) % Eos % (Auto) % Baso % (Auto) % Neut # (Auto) (1.40-6.50) K/uL Lymph # (Auto) (1.20-3.40) K/uL [place] # (Auto) (0.11-0.59) K/uL Eos # (Auto) (0.00-0.50) K/uL Baso # (Auto) (0.00-0.20) K/uL Immature Gran # (Auto) (0.01-0.20) K/uL ESR (0-20) mm/hr Sodium (136-145) mmol/L Potassium (3.5-5.1) mmol/L Chloride (98-107) mmol/L Carbon Dioxide (21-32) mmol/L Anion Gap (3-11) BUN (6-23) mg/dl Creatinine (0.6-1.2) mg/dl Est Cr Clr Drug Dosing ml/min eGFR BUN/Creatinine Ratio (10-20) Glucose (70-99(Fasting)) mg/dl Lactate (0.4-2.0) mmol/L Calcium (8.6-10.3) mg/dl Magnesium (1.7-2.4) mg/dl Total Bilirubin (0.2-1.0) mg/dl Direct Bilirubin (0-0.2) mg/dl AST (13-39) U/L ALT (7-52) U/L Alkaline Phosphatase (34-104) U/L Troponin I High Sens 10.9 D (0-14) pg/ml C-Reactive Protein (0-0.5) mg/dl Total Protein (6.0-8.3) gm/dl Albumin (3.4-5.0) gm/dl Procalcitonin (0-0.5) ng/ml Urine Color Urine Appearance (Clear) Urine pH (4.5-7.5) Ur Specific [place] (1.000-1.030) Urine Protein (Negative) Urine Glucose (UA) (Negative) Urine Ketones (Negative) Urine Blood (Negative) Urine Nitrite (Negative) Urine Bilirubin (Negative) Urine Urobilinogen (Negative) Ur Leukocyte Esterase (Negative) Urine WBC (Auto) (0-5) /hpf Urine RBC (Auto) (0-2) /hpf U Hyaline Cast (Auto) (0-2) /lpf U Epithel Cells (Auto) (0-2) /hpf Urine Bacteria (Auto) (None Seen) Urine Mucus (None Prsent) Urine Yeast (None Prsent) Adenovirus (PCR) Not Detected (NotDetected) B. pertussis DNA (PCR) Not Detected (NotDetected) B.parapertussis DNA PCR Not Detected (NotDetected) C. pneumoniae DNA (PCR) Not Detected (NotDetected) Coronavirus OC43 (PCR) Not Detected (NotDetected) Coronavirus HKU1 (PCR) Not Detected (NotDetected) Coronavirus 229E (PCR) Not Detected (NotDetected) SARS-CoV-2 (PCR) Not Detected (NotDetected) Coronavirus NL63 (PCR) Not Detected (NotDetected) Human Metapneumovir PCR Not Detected (NotDetected) Influenza Type A (PCR) Not Detected (NotDetected) Influenza Type B (PCR) Not Detected (NotDetected) M. pneumoniae (PCR) Not Detected (NotDetected) Parainfluenza 1 (PCR) Not Detected (NotDetected) Parainfluenza 2 (PCR) Not Detected (NotDetected) Parainfluenza 3 (PCR) Not Detected (NotDetected) Parainfluenza 4 (PCR) Not Detected (NotDetected) RSV (PCR) Not Detected (NotDetected) Entero/Rhino (PCR) Not Detected (NotDetected) Administered Medications Acetaminophen (Acetaminophen 500 Mg Tab) 500 mg PO Q4H PRN PRN Reason: Pain Stop: 05/09/24 13:48 Last Admin: 04/09/24 14:01 Dose: 500 mg Documented By: CALE Discontinued Medications Acetaminophen (Acetaminophen 500 Mg Tab) 1,000 mg PO NOW STA Stop: 04/09/24 08:57 Last Admin: 04/09/24 09:24 Dose: 1,000 mg Documented By: BLD Enoxaparin Sodium (Enoxaparin Inj 40 Mg/0.4 Ml Syr) 40 mg SQ NOW STA Stop: 04/09/24 13:20 Last Admin: 04/09/24 14:45 Dose: 40 mg Documented By: OLIVER Sodium Chloride (Nss) 1,000 mls @ 999 mls/hr IV .Q1H1M VAISHALI Stop: 04/09/24 10:00 Last Infusion: 04/09/24 10:34 Dose: Infused Documented By: Admin: 04/09/24 09:25 Dose: 999 mls/hr Documented By: OLIVER Vancomycin HCl 2,750 mg/ (Sodium Chloride) 555 mls @ 200 mls/hr IV NOW ONE Stop: 04/09/24 11:43 Last Infusion: 04/09/24 12:53 Dose: Infused Documented By: Admin: 04/09/24 09:54 Dose: 200 mls/hr Documented By: OLIVER Piperacillin Sod/Tazobactam Sod (Zosyn) 4.5 gm in 100 mls @ 200 mls/hr IV NOW ONE; Protocol Stop: 04/09/24 09:25 Last Infusion: 04/09/24 09:58 Dose: Infused Documented By: Admin: 04/09/24 09:25 Dose: 200 mls/hr Documented By: OLIVER Imaging Data Radiologist's Impression: Chest X-Ray 04/09/24 08:54 XR chest 1V portable HISTORY: 48 years-old Female Sepsis COMPARISON: 08/28/2023 TECHNIQUE: AP view of the chest FINDINGS: No pneumothorax. No pleural effusions. The cardiac silhouette remains borderline enlarged. No new focal lung consolidations to suggest a pneumonia. Mild bibasilar atelectasis. Stable chronic interstitial coarsening. No evidence for pulmonary edema. IMPRESSION: No acute process. ACT 112: Negative or not required by law. The above report was generated using voice recognition software. It may contain grammatical, syntax or spelling errors. Electronically signed by: Samuel Friedman M.D. 04/09/2024 10:12 AM Foot X-Ray 04/09/24 08:56 XR foot LT 2V CLINICAL HISTORY: wound/surgery COMPARISON: Left foot radiographs November 13, 2021. CT of the left foot February 07, 2024. Left foot fluoroscopic images March 25, 2024. FINDINGS: Fusion of the left first, second and third tarsometatarsal joints is noted. The hardware is intact. The first metatarsal plate on radiographs December 15, 2023 has been removed. There are no acute fractures within the left foot. Midfoot degenerative changes suggestive of Charcot arthropathy are again noted. Extensive dorsal foot soft tissue swelling is present. There is a plantar wound of the midfoot. No radiographic evidence for acute osteomyelitis. No unexpected radiopaque foreign bodies. IMPRESSION: 1. Status post left midfoot fusion. Hardware intact. 2. No acute fractures within the left foot. 3. Midfoot degenerative changes suggestive of Charcot arthropathy, unchanged. 4. Plantar mid foot wound. No radiographic evidence for acute osteomyelitis. 5. Extensive dorsal soft tissue swelling, unchanged. ACT 112: Negative or not required by law. Electronically signed by: Elmo Stover M.D. 04/09/2024 10:28 AM Discharge Plan Visit Data Chief Complaint: Illness Stated Complaint: ILLNESS ED Provider: Denny Pete Discharge Problem: Open wound of left foot, History of drug abuse, Cellulitis Discharge Problem: Open wound of left foot Qualifiers: Encounter type: initial encounter Qualified Code(s): S91.302A - Unspecified open wound, left foot, initial encounter Cellulitis Qualifiers: Site of cellulitis: extremity Site of cellulitis of extremity: lower extremity Laterality: left Qualified Code(s): L03.116 - Cellulitis of left lower limb
[2024-04-09] MEDS ORDERED: VANCOMYCIN CONSULT ACTIVE PRN (08:54)
[2024-04-09] MEDS: ACETAMINOPHEN 500 MG TAB PO STA (09:24)
[2024-04-09] MEDS: PIPERACILLIN/TAZOBACTAM 4.5 GM/100 ML BAG IV ONE (09:25)
[2024-04-09] MEDS: SODIUM CHLORIDE 0.9% 1,000 ML IV SCH (09:25)
[2024-04-09 09:44] LABS: Basophils # (auto) 0.07 K/uL (0.00-0.20); Basophils % (auto) 0.8 %; Eosinophils # (auto) 0.28 K/uL (0.00-0.50); Eosinophils % (auto) 3.4 %; Hematocrit (blood only) 34.3 % (37.0-47.0); Immature Granulocytes # (auto) 0.03 K/uL (0.01-0.20); Immature Granulocytes % (auto) 0.4 %; Lymphocytes # (auto) 1.42 K/uL (1.20-3.40); Mean Corpuscular Hemoglobin 31.3 pg (25.0-34.0); Mean Corpuscular Volume 89.3 fL (80.0-100.0); Monocytes # (auto) 0.82 K/uL (0.11-0.59); Monocytes % (auto) 9.8 %; Neutrophils # (auto) 5.72 K/uL (1.40-6.50); Neutrophils % (auto) 68.6 %; Platelet Count 353 K/uL (130-400); RDW Coefficient of Variation 13.1 % (11.5-14.5); RDW Standard Deviation 42.6 fL (36.4-46.3); Red Blood Count 3.84 M/uL (4.20-5.40); White Blood Count 8.34 K/ul (4.8-10.8)
[2024-04-09 09:49] LABS: Albumin Level 3.1 gm/dl (3.4-5.0); BUN Creatinine Ratio 10.7 (10-20); Bilirubin Direct 0.1 mg/dl (0-0.2); Bilirubin,Total 0.6 mg/dl (0.2-1.0); C Reactive Protein 18.44 mg/dl (0-0.5); Calcium 8.2 mg/dl (8.6-10.3); Creatinine Clr Calc Pharmacy 181.5 ml/min; Magnesium 1.4 mg/dl (1.7-2.4); Potassium 2.8 mmol/L (3.5-5.1); Total Protein 6.4 gm/dl (6.0-8.3)
[2024-04-09] MEDS: VANCOMYCIN HCL 2,750 MG in SODIUM CHLORIDE 0.9% 500 ML IV ONE (09:54)
[2024-04-09 09:55] LABS: Troponin I High Sensitivity 20.3 pg/ml (0-14)
--- NOTE | 2024-04-09 10:14 | XRay Report ---
XR chest 1V portable HISTORY: 48 years-old Female Sepsis COMPARISON: 08/28/2023 TECHNIQUE: AP view of the chest FINDINGS: No pneumothorax. No pleural effusions. The cardiac silhouette remains borderline enlarged. No new foc al lung consolidations to suggest a pneumonia. Mild bibasilar atelectasis. Stable chronic interstitia l coarsening. No evidence for pulmonary edema. IMPRESSION: No acute process. ACT 112: Negative or not required by law. The above report was generated using voice recognition software. It may contain grammatical, syntax o r spelling errors. Electronically signed by: Samuel Friedman M.D. 04/09/2024 10:12 AM
[2024-04-09 10:23] LABS: Appearance Urine Clear (Clear); Bacteria Urine Automated 1+ (None Seen); Bilirubin Urine 1+ (Negative); Blood Urine Negative (Negative); Cast Urine Automated 0-2 /lpf (0-2); Color Urine Dark Yellow; Glucose Urine UA Negative (Negative); Ketones Urine Trace (Negative); Leukocyte Esterase Urine Trace (Negative); Nitrite Urine Negative (Negative); Protein Urine 1+ (Negative); Specific Gravity Urine 1.026 (1.000-1.030); Urobilinogen Urine Negative (Negative); WBC Urine Automated 0-5 /hpf (0-5)
[2024-04-09 10:25] LABS: Mucus Urine Present (None Prsent); RBC Urine Automated 0-2 /hpf (0-2)
--- NOTE | 2024-04-09 10:30 | XRay Report ---
XR foot LT 2V CLINICAL HISTORY: wound/surgery COMPARISON: Left foot radiographs November 13, 2021. CT of the left foot February 07, 2024. Left shanda t fluoroscopic images March 25, 2024. FINDINGS: Fusion of the left first, second and third tarsometatarsal joints is noted. The hardware i s intact. The first metatarsal plate on radiographs December 15, 2023 has been removed. There are no a cute fractures within the left foot. Midfoot degenerative changes suggestive of Charcot arthropathy a re again noted. Extensive dorsal foot soft tissue swelling is present. There is a plantar wound of th e midfoot. No radiographic evidence for acute osteomyelitis. No unexpected radiopaque foreign bodies. IMPRESSION: 1. Status post left midfoot fusion. Hardware intact. 2. No acute fractures within the left foot. 3. Midfoot degenerative changes suggestive of Charcot arthropathy, unchanged. 4. Plantar mid foot wound. No radiographic evidence for acute osteomyelitis. 5. Extensive dorsal soft tissue swelling, unchanged. ACT 112: Negative or not required by law. Electronically signed by: Elmo Stover M.D. 04/09/2024 10:28 AM
--- NOTE | 2024-04-09 11:35 | History & Physical Report ---
Date of Service April 09, 2024 Assessment & Plan (1) Open wound of left foot: Plan: 48-year-old female with a history of opioid/methamphetamine use and recent methamphetamine use with recent surgery of her left foot who presents with increasing left foot cellulitis and drainage with a wound that probes to bone although without evidence of osteo on x-ray. Patient has been on ciprofloxacin, is recommended for admission for treatment of worsening infection likely either MRSA versus ESBL gram-negative infection. Left foot cellulitis, presumed osteomyelitis Foot x-ray: Extensive dorsal soft tissue swelling, no radiographic evidence of osteomyelitis. S/p left midfoot fusion with hardware intact. Midfoot degenerative changes suggestive/consistent with Charcot arthropathy stable from prior. Plantar Wound that probes to bone would treat as likely underlying osteo of unclear evidence on x-ray. Can f/u with MRI if needed Treated with Zosyn/vancomycin in the ER. Given lack of clear pulmonary involvement + elevated BMI we will transition to Zosyn/daptomycin on admission and hold atorvastatin Febrile at home No leukocytosis He is not hypotensive, tachycardic. She does not meet sepsis criteria on admission Wound culture 03/25/2024: Polymicrobial. Sensitive to fluoroquinolones, Klebsiella/E. coli/Pseudomonas species at that time. Prior wound culture 09/2023 with Serratia and Pseudomonas: Sensitive Given progressive worsening and with purulent discharge will include both alternative Pseudomonas coverage, and MRSA coverage on admission. Repeat previous culture collected and sent Blood cultures collected in the ER CRP elevated 18, trended. Procalcitonin is normal. - Podiatry consulted - NPO at 0000 for possible debridement ?Endocarditis - +systolic murmur new and not previously documented with purulent wound and history of IVDU. Multiple risk factors for endocarditis - Abx as noted - BC pending - TTE ordered. If negative and high suspicion, will need to arrange EMILY for definitive evaluation Drug abuse, MDD, anxiety History of opioid abuse, per patient in remission and continued on Suboxone History of methamphetamine use, previously sober for 7 months but used methamphetamines this past Saturday and Saturday Continue prazosin Continue propranolol Continue Rexulti Continue Lamictal Continue clonidine May use clonazepam daily as needed, home dosing continued History of coronary artery thrombosis History of left main thrombus s/p aspiration thrombectomy at [facility] 2018 EMILY EF 65%, no embolic source was identified. Continue aspirin, Plavix Was felt to be due to methamphetamine use at that time Continue Plavix, beta-maco. Atorvastatin held while on daptomycin Prediabetes History of prediabetes last A1c 5.7%, previously 6.5% BSG 97 on admission. Will monitor daily BMP, if BSG is above goal of 180 then switch to DM2 diet with SSI at that time DVT prophylaxis: Lovenox Disposition: MSO CODE STATUS: Full code Diet: NPO at 0000 (2) History of drug abuse: (3) Tobacco dependence due to cigarettes: (4) Morbid obesity: (5) Coronary artery clot: (6) Fibromyalgia: History of Present Illness Primary Care Provider: Liya Stover MD Mary Jo is a 48-year-old female with a past medical history of fibromyalgia, Charcot foot, drug abuse, left foot wound, tobacco dependence, thyroiditis with recent left foot debridement/hardware removal/bone biopsy with podiatry Dr. Sorensen 03/26/2024 presents to the emergency department with fever, chills, aches and fatigue. Patient has had worsening symptoms for around 1 week. She did have surgery to her left foot 03/26/2024 and has been on ciprofloxacin. seen at bedside. Increasing redness drainage from her left foot in the last week in addition to fever, chills, and aches. She does not leukocytosis but of markedly elevated inflammatory markers. Has been compliant and taking cipro and all other meds, although took no medications today. No pain at the foot but has increased drainage. Deneis cough. Denies dyspnea. Denies chest pain. Denies lightheadedness/dizziness. Hx IVDU with recent methamphetamine use 2x this week. Hx of opioid abuse in remission, currenly on suboxone. Initially was going to discuss leaving ER ?AMA with ED however on reviewing presentation, concerns for worsening infection and ?endocarditis pt agreeable to remain for inpatient antibiotics and further evaluation. Medical History: Reviewed Medications: Reviewed Surgical History: Reviewed Family history: Reviewed Allergies: Reviewed Social History: Hx tobacco, IVDU, methamphetamine use Code Status: Full Allergies Allergy/AdvReac Type Severity Reaction Status Date / Time nitrofurantoin Allergy Severe throat Verified 04/08/24 13:09 edema. ketorolac Allergy Intermediate Hot skin Verified 04/08/24 13:09 blotches. meperidine Allergy Intermediate hot skin Verified 04/08/24 13:09 blotches nickel Allergy Mild Rash Verified 04/08/24 13:09 gluten Allergy celiac's Verified 04/08/24 13:09 amoxicillin [From Augmentin] AdvReac Intermediate Vomiting Verified 04/08/24 13:09 clavulanic acid AdvReac Intermediate Vomiting Verified 04/08/24 13:09 [From Augmentin] Home Medications Medication Instructions Recorded Confirmed Type aspirin 81 mg tablet,delayed 81 mg PO QAM 10/13/20 04/09/24 History release (Adult Aspirin Regimen) vitamin B complex 1 cap PO QAM 10/13/20 04/09/24 History furosemide 20 mg tablet (Lasix) 20 mg PO DAILY PRN edema #90 tabs 02/06/23 04/09/24 Rx gabapentin 100 mg capsule 300 mg PO HS 02/06/23 04/09/24 History zolpidem 5 mg tablet 5 mg PO HS PRN Sleep 02/06/23 04/09/24 History dextroamphetamine-amphetamine 20 20 mg PO QAM 05/10/23 04/09/24 History mg tablet (Adderall) Shower Chair #1 ea 05/20/23 04/08/24 Rx mometasone 50 mcg/actuation nasal 2 spray intranasal DAILY PRN nasal 06/24/23 04/09/24 Rx spray congestion #54 grams propranolol 80 mg capsule,24 80 mg PO BID #180 caps 06/28/23 04/09/24 Rx hr,extended release buprenorphine 8 mg-naloxone 2 mg 2.5 tab sublingual DAILY 06/30/23 04/09/24 History sublingual tablet lamotrigine 100 mg tablet 200 mg PO HS 06/30/23 04/09/24 History pantoprazole 40 mg tablet,delayed 40 mg PO BID 06/30/23 04/09/24 History release brexpiprazole 4 mg tablet (Rexulti) 4 mg PO QAM 08/28/23 04/09/24 History clonazepam 0.5 mg tablet 0.5 mg PO DAILY PRN Anxiety 08/28/23 04/09/24 History prazosin 2 mg capsule 1 mg PO HS 08/28/23 04/09/24 History ondansetron HCl 4 mg tablet 4 mg PO Q8H PRN Nausea #20 tabs 02/13/24 04/09/24 Rx tizanidine 4 mg tablet 4 mg PO QID PRN muscle spasticity 03/18/24 04/09/24 Rx #360 tabs amlodipine 10 mg tablet 10 mg PO QAM 03/24/24 04/09/24 History ascorbic acid (vitamin C) 1,000 mg 1 g PO QAM 03/24/24 04/09/24 History tablet (Vitamin C) atorvastatin 80 mg tablet (Lipitor) 80 mg PO QPM 03/24/24 04/09/24 History clonidine HCl 0.1 mg tablet 0.1 mg PO HS 03/24/24 04/09/24 History estradiol 2 mg tablet 2 mg PO QAM 03/24/24 04/09/24 History multivitamin 1 tab PO QAM 03/24/24 04/09/24 History cholecalciferol (vitamin D3) 1,250 50,000 unit PO WK 04/09/24 04/09/24 History mcg (50,000 unit) capsule clopidogrel 75 mg tablet (Plavix) 75 mg PO QAM 04/09/24 04/09/24 History ferrous sulfate 325 mg (65 mg 325 mg PO UD 04/09/24 04/09/24 History iron) tablet Past Med/Surg History Problem List (Updated 04/01/24 @ 00:07 by Background Daemon) Open wound of left foot (Acute) Traumatic open wound of great toe with delayed healing (Acute) Lower extremity edema (Chronic) Venous ulcer of left leg (Acute) Hypomagnesemia Left leg cellulitis COVID-19 History of drug abuse (Chronic) h/o opiate abuse Wound of left foot (Acute) Tobacco dependence due to cigarettes (Chronic) Vitamin D deficiency (Chronic) Morbid obesity (Chronic) Venous insufficiency (Chronic) Coronary artery clot (Chronic) LAD clot s/p thrombectomy 2019 Chronic migraine (Chronic) Chronic low back pain (Chronic) History of thyroiditis (Chronic) Fibromyalgia (Chronic) Lumbar facet joint syndrome (Chronic) Medical History (Updated 04/01/24 @ 00:07 by Background Daemon) Cauda equina syndrome Fibromyalgia Arthritis Kidney stone current problem Hx of drug abuse narcotic abuse 2019>reason for suboxone Anemia Post traumatic stress disorder Attention deficit disorder (ADD) Anxiety and depression Restless leg syndrome Neuropathy Migraine Tachycardia reason for propranolol (followed by Dr. Greenfield) Hx of diabetes mellitus hx borderline Diabetes H/O blood clots in heart>dx 2019 *reason for plavix History of pneumonia dx 01/2024 Asthma no recent flare ups "no inhalers" Coronary artery disease Neuropathic ulcer of left foot reason for surgery tomorrow Narcolepsy Bipolar disorder Celiac disease Hyperlipidemia Hypertension GERD (gastroesophageal reflux disease) Surgical History History of esophagogastroduodenoscopy (EGD) History of tonsillectomy History of cardiac cath S/P lumbar laminectomy (12/2019) History of colonoscopy History of surgery History of bilateral tubal ligation History of section History of total abdominal hysterectomy and bilateral salpingo-oophorectomy History of cholecystectomy Family History Grandmother (Maternal) Family history of diabetes mellitus Uncle Family history of diabetes mellitus Other Anxiety Breast cancer Cardiac disorder Depression Hypertension Myocardial infarction No family history of adverse response to anesthesia Social History Smoking Status: Never smoker Tobacco Type: Cigarettes Age Started Using Tobacco: 26; packs per day: 0.01; Cigarettes Per Day: 20 cig per day>advised; Second Hand Exposure: No; Do You Dip or Chew Tobacco: No; Hx Alcohol Use: No Hx Substance Use: No Preferred Language: Thai Communication Ability: Effective Visual Impairment: No Limitations Hearing Ability: Normal Supervisor Hand Workers Required: No Beliefs That Will Affect Care: None marital status: single Current Living Situation: Family Current Living Situation Comment: with son current occupational status: disabled Feels Safe at Home: Yes Diet: regular Physical Activity Frequency: Does not Exercise Seatbelt Use: always Sunscreen Use: No Assistive Devices: Brace/Splint/Immobilizer Physical Exam Physical Exam: General: A&Ox3. NAD. Cooperative. HEENT: Atraumatic, normocephalic. Vision/hearing intact Pulm: CTAB A&P. -wheezes, -rales, -rhonchi. Symmetrical chest rise. No increased work of breathing. No respiratory distress. Cardiac: RRR, +sm. Radial pulses intact and symmetrical. Abdominal: Nontender, nondistended, soft. BS present. Ext: L plantar foot with ~4cm wound with purulent drainage which probes suspect to bone. Mild surrounding erythema without tenderness/warmth. Additional dorsal surgical incision well healing. Results & Data Results & Data Vital Signs (Past 12 Hours) Vital Signs Temp Pulse Resp BP BP Pulse Ox O2 Del Method 04/09/24 10:48 70 18 91 04/09/24 10:39 70 22 91 04/09/24 10:18 74 18 94 04/09/24 10:06 72 22 93 04/09/24 10:01 72 18 93 Room Air 04/09/24 10:00 136/74 04/09/24 09:30 74 16 93 04/09/24 09:24 78 23 93 04/09/24 09:12 77 17 93 04/09/24 09:00 78 04/09/24 08:45 78 14 93 04/09/24 08:39 81 14 93 04/09/24 08:20 37.1 C 84 16 136/74 94 Room Air PG Care Time/CCT Total # of Minutes Spent Total Time Spent with Patient: Total time spent is greater than 50% in coordination of care (as documented) at patient's floor/unit and/or counseling patient: Coding Level of Care Code 59477 INT INP/OBS CARE 3/75MIN Diagnoses Open wound of left foot, initial encounter S91.302A Encounter type: initial encounter History of drug abuse F19.11 Tobacco dependence due to cigarettes F17.210 Morbid obesity E66.01 Coronary artery clot I24.0 Fibromyalgia M79.7 (1) Open wound of left foot Encounter type: initial encounter Qualified Code(s): S91.302A - Unspecified open wound, left foot, initial encounter
--- NOTE | 2024-04-09 12:44 | History & Physical Bridge Note ---
Date of Service April 09, 2024 History & Physical Bridge Note I have examined the patient, reviewed the History & Physical and in the interval since the performance of the History & Physical I have noted the following changes of clinical significance: no changes noted. Plan for bilateral great toe partial amputations. No new concerns. Preoperative instructions, postoperative instructions, relative risks, and outcomes all discussed. All questions answered.
[2024-04-09 12:59] LABS: Adenovirus PCR Not Detected (NotDetected); Bordetella parapertussis PCR Not Detected (NotDetected); Bordetella pertussis PCR Not Detected (NotDetected); Chlamydia pneumoniae PCR Not Detected (NotDetected); Coronavirus 229E PCR Not Detected (NotDetected); Coronavirus CoV-2 (COVID19)PCR Not Detected (NotDetected); Coronavirus HKU1 PCR Not Detected (NotDetected); Coronavirus NL63 PCR Not Detected (NotDetected); Coronavirus OC43PCR Not Detected (NotDetected); Human Metapneumovirus PCR Not Detected (NotDetected); Influenza A PCR Not Detected (NotDetected); Influenza B PCR Not Detected (NotDetected); Mycoplasma pneumoniae PCR Not Detected (NotDetected); Parainfluenza Virus 1 PCR Not Detected (NotDetected); Parainfluenza Virus 2 PCR Not Detected (NotDetected); Parainfluenza Virus 3 PCR Not Detected (NotDetected); Parainfluenza Virus 4 PCR Not Detected (NotDetected); Respiratory Syncytial VirusPCR Not Detected (NotDetected); Rhinovirus/Enterovirus PCR Not Detected (NotDetected)
--- NOTE | 2024-04-09 13:58 | XCELERA ---
[id number] \\[id number]
[2024-04-09] MEDS: ACETAMINOPHEN 500 MG TAB PO PRN (14:01)
[2024-04-09] MEDS: ENOXAPARIN INJ 40 MG/0.4 ML SYR SQ STA (14:45)
--- NOTE | 2024-04-09 15:30 | Electrocardiogram Report ---
Test Reason : Blood Pressure : */* mmHG Vent. Rate : 73 BPM Atrial Rate : 73 BPM P-R Int : 164 ms QRS Dur : 96 ms QT Int : 406 ms P-R-T Axes : 39 33 32 degrees QTcB Int : 447 ms Normal sinus rhythm Nonspecific ST and T wave abnormality Abnormal ECG When compared with ECG of 28-Aug-2023 00:11, Nonspecific T wave abnormality now evident in Inferior leads Confirmed by Víctor Moran ([id number]) on 04/09/2024 3:30:34 PM Referred By: REFERRED SELF Confirmed By: Víctor Moran
[2024-04-09] MEDS ORDERED: ZOLPIDEM TARTRATE 5 MG TAB PO PRN (15:56)
[2024-04-09] MEDS: DAPTOmycin 375 MG in SYRINGE 0 ML IV SCH (17:02)
[2024-04-09] MEDS: PIPERACILLIN/TAZOBACTAM 4.5 GM/100 ML BAG IV SCH (17:02)
[2024-04-09] MEDS: PRAZOSIN HCL 1 MG CAP PO SCH (20:12)
[2024-04-09] MEDS: lamoTRIgine 100 MG TAB PO SCH (20:12)
[2024-04-09] MEDS: GABAPENTIN 300 MG CAP PO SCH (20:13)
[2024-04-09] MEDS: PANTOprazole 40 MG TAB PO SCH (20:13)
[2024-04-09] MEDS: clonazePAM 0.5 MG TAB PO PRN (20:13)
[2024-04-09] MEDS: cloNIDine HCL 0.1 MG TAB PO SCH (20:13)
[2024-04-09] MEDS: PROPRANOLOL HCL LA 80 MG CAPCR PO SCH (20:13)
[2024-04-09] MEDS: ENOXAPARIN INJ 40 MG/0.4 ML SYR SQ SCH (20:13)
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
[2024-04-09] MEDS: LORazepam 2 MG/1 ML VIAL IV STA (22:27)
--- NOTE | 2024-04-10 00:55 | Magnetic Resonance Report ---
EXAM: MR foot LT w/o con CLINICAL HISTORY: Left foot infection. R/O new OM TECHNIQUE: MRI of the left foot was performed without intravenous contrast administration. Sequences obtained include: Sagittal STIR, T1, Coronal T1-weighted, STIR, Axial PD FS, STIR. COMPARISON: Comparison is made with prior imaging studies dated 07/01/2023 FINDINGS: Bone: There is bone marrow edema of the cuboid, lateral and intermediate cuneiform and metatarsal bones (apart from the 1st). Arthrodesis of the 1st, 2nd and 3rd metatarsa; bones to the opposing tarsals. Tendons: Fluid signal surrounding the flexor hallucis longus tendon denoting tenosynovitis. Muscles: The intrinsic plantar musculature of the foot show a large ill defined areas of high T1 and STIR signal and another areas of low T1 and high STIR signal. The visualized neurovascular structures do not reveal any obvious abnormality. Transverse and longitudinal arches of the foot are well maintained. Normal MRI appearance of the plantar fascia with no definite current MRI evidence to suggest plantar fasciitis. Soft Tissue: Extensive diffuse subcutaneous edema grade IV along the sole and dorsum of the foot. An ill defined track is seen breaching from the deep tissues to the skin surface. Mild tibiotalar, subtalar and intertarsal joints effusions. IMPRESSION: 1. Bone marrow edema of the cuboid, lateral cunieform and opposing metatarsals raise the possibility of osteomyelitis (newly developed). Clinical and lab. correlation advised. 2. Diffuse subcutaneous and soft tissue edema denting infective/inflammatory process. 3. Fatty degenerative changes -with some areas of edema- of the interinsic muscles of the foot. 4. Tenosynovitis of the flexor hallucis longus tendon. 5. Fixation and fusion of the first three metatarsals with the opposing tarsals in place. Electronically signed by Yazmin Burton 04-10-2024 12:54 AM
[2024-04-10 06:56] LABS: Basophils # (auto) 0.07 K/uL (0.00-0.20); Basophils % (auto) 0.9 %; Eosinophils # (auto) 0.23 K/uL (0.00-0.50); Eosinophils % (auto) 2.8 %; Hemoglobin 11.5 g/dl (12.0-16.0); Immature Granulocytes # (auto) 0.03 K/uL (0.01-0.20); Immature Granulocytes % (auto) 0.4 %; Lymphocytes # (auto) 2.16 K/uL (1.20-3.40); Lymphocytes % (auto) 26.4 %; Mean Corpuscular Hemoglobin 30.7 pg (25.0-34.0); Mean Corpuscular Hgb Conc 34.8 g/dL (32.0-36.0); Mean Corpuscular Volume 88.2 fL (80.0-100.0); Mean Platelet Volume 8.7 fL (9.4-12.4); Monocytes # (auto) 0.81 K/uL (0.11-0.59); Monocytes % (auto) 9.9 %; Neutrophils # (auto) 4.88 K/uL (1.40-6.50); Neutrophils % (auto) 59.6 %; Platelet Count 338 K/uL (130-400); RDW Coefficient of Variation 13.1 % (11.5-14.5); RDW Standard Deviation 42.7 fL (36.4-46.3); Red Blood Count 3.74 M/uL (4.20-5.40); White Blood Count 8.18 K/ul (4.8-10.8)
[2024-04-10 07:15] LABS: BUN Creatinine Ratio 10.4 (10-20); C Reactive Protein 14.49 mg/dl (0-0.5); Calcium 7.6 mg/dl (8.6-10.3); Creatinine Clr Calc Pharmacy 211.7 ml/min; Potassium 2.7 mmol/L (3.5-5.1)
[2024-04-10 08:49] LABS: Magnesium 1.5 mg/dl (1.7-2.4)
[2024-04-10] MEDS: POTASSIUM CHLORIDE CRTAB 20 MEQ TABCR PO STA (09:08)
[2024-04-10] MEDS: MAGNESIUM SULFATE / D5W 1 GM/100 ML BAG IV SCH (09:08)
[2024-04-10] MEDS: POTASSIUM CHLORIDE / WTR 10 MEQ/100 ML PLCT IV SCH (09:09)
[2024-04-10] MEDS: ASPIRIN 81 MG ECTAB PO SCH (09:10)
[2024-04-10] MEDS: ASCORBIC ACID 500 MG TAB PO SCH (09:10)
[2024-04-10] MEDS: amLODIPine BESYLATE 5 MG TAB PO SCH (09:10)
[2024-04-10] MEDS: CLOPIDOGREL BISULFATE 75 MG TAB PO SCH (09:10)
[2024-04-10] MEDS: estradioL 1 MG TAB PO SCH (09:11)
[2024-04-10] MEDS: MULTIVITAMIN TAB PO SCH (09:11)
[2024-04-10] MEDS: FERROUS SULFATE 325 MG TAB PO SCH (09:12)
[2024-04-10] MEDS: VITAMIN B COMPLEX TAB PO SCH (09:12)
[2024-04-10] MEDS: BUPRENORPHINE/NALOXONE 8/2 MG TAB SL SCH (09:20)
--- NOTE | 2024-04-10 11:25 | Infectious Disease Consult ---
Date of Consultation April 10, 2024 Assessment & Plan (1) Osteomyelitis of foot, left, acute: (2) Cellulitis: Plan Problems: #Hardware-associated L foot osteomyelitis #IVDU Micro: 04/09 L foot wound cx: pending. GS GPCs, GNRs 04/09 BCx x2: NGTD 04/09 UCx: pending 03/25 L foot bone cx: Klebsiella oxytoca/Raoultella ornithinolytica (I amp/sul. R amp, cefaz. Otherwise S), E coli (I amox/clav. R amp, amp/sul, cefaz. Otherwise S), Pseudomonas (botello-S), Peptoniphilus harei group Abx: Dapto 04/09 - present Pip-tazo 04/09 - present Vanc 04/09 48 yo F with fibromyalgia, IVDU, L foot ORIF Lisfranc midfoot and gastroc recession (11/28/21) with Charcot foot c/b non-healing plantar ulcer s/p excisional debridement with bone biopsy, removal of some hardware, and bone biopsy (03/25/24; per operative report the wound extended to bone; bone cx with Kleb oxytoca/Raoultella ornithinolytica, E coli, Pseudomonas, Peptoniphilus harei) who presented on 04/09/24 with fevers, chills, myalgia, increased drainage from her L foot, admitted with hardware-associated osteomyelitis. Was taking ciprofloxacin prescribed post-operatively. On presentation, pt was afebrile, VSS. Exam noted the L plantar foot wound which probed to bone, with purulent drainage, and mild surrounding erythema. Labs showed WBC 8.34, ESR 83, CRP 18.44, procal 0.08, RVP negative. CXR with no acute process. L foot XR with hardware intact, no radiographic evidence for acute osteomyelitis, extensive dorsal foot soft tissue swelling. Podiatry was consulted. MRI L foot wo contrast showed bone marrow edema of the cuboid, lateral cuneiform and opposing metatarsals raising the possibility of osteomyelitis; diffuse subcutaneous and soft tissue edema. Pt was started on dapto, pip-tazo. Podiatry planning likely bedside debridement. Recommendations: -Follow-up 04/09 wound culture, blood cultures -If debridement is performed, please send cultures -Can continue dapto, pip-tazo for now -Anticipate pt will need 6 weeks of IV antibiotics (possibly pip-tazo), followed by lifelong PO antibiotic suppression (likely fluoroquinolone) since the infected hardware cannot be removed Discussed with podiatry. Will continue to follow. Please note that ID does not round or write notes over the weekend. If questions or concerns arise, please contact the Infectious Disease Call Center and ask to speak with the covering ID physician. Dr. Katie El will take over on Saturday. Consultation Information This patient recommendation is based on a telemedicine consult request which was completed asynchronously through chart review and information provided by the primary physician. The patient was not seen or examined today. The evaluation is consultative in nature and all patient care and treatment decisions can either be accepted or rejected by the patient's primary hospital-based treating physician using their own independent medical judgment for their patient. [place] contact information: Please call [facility] Call Center . (Phone Number For Physician Use Only) Time Spent Reviewing Chart: 31+ minutes History of Present Illness Reason for Consultation: L foot osteomyelitis Attending Physician: Isaura Park MD History of Present Illness 48 yo F with fibromyalgia, IVDU, L foot ORIF Lisfranc midfoot and gastroc recession (11/28/21) with Charcot foot c/b non-healing plantar ulcer s/p excisional debridement with bone biopsy, removal of some hardware, and bone biopsy (03/25/24; per operative report the wound extended to bone; bone cx with Kleb oxytoca/Raoultella ornithinolytica, E coli, Pseudomonas, Peptoniphilus harei) who presented on 04/09/24 with fevers, chills, myalgia, increased drainage from her L foot. Was taking ciprofloxacin prescribed post-operatively. On presentation, pt was afebrile, VSS. Exam noted the L plantar foot wound which probed to bone, with purulent drainage, and mild surrounding erythema. Labs showed WBC 8.34, ESR 83, CRP 18.44, procal 0.08, RVP negative. CXR with no acute process. L foot XR with hardware intact, no radiographic evidence for acute osteomyelitis, extensive dorsal foot soft tissue swelling. Podiatry was consulted. MRI L foot wo contrast showed bone marrow edema of the cuboid, lateral cuneiform and opposing metatarsals raising the possibility of osteomyelitis; diffuse subcutaneous and soft tissue edema. Pt was started on dapto, pip-tazo. Podiatry planning likely bedside debridement. Allergies Allergy/AdvReac Type Severity Reaction Status Date / Time nitrofurantoin Allergy Severe throat Verified 04/08/24 13:09 edema. ketorolac Allergy Intermediate Hot skin Verified 04/08/24 13:09 blotches. meperidine Allergy Intermediate hot skin Verified 04/08/24 13:09 blotches nickel Allergy Mild Rash Verified 04/08/24 13:09 gluten Allergy celiac's Verified 04/08/24 13:09 amoxicillin [From Augmentin] AdvReac Intermediate Vomiting Verified 04/08/24 13:09 clavulanic acid AdvReac Intermediate Vomiting Verified 04/08/24 13:09 [From Augmentin] Home Medications Medication Instructions Recorded Confirmed Type aspirin 81 mg tablet,delayed 81 mg PO QAM 10/13/20 04/09/24 History release (Adult Aspirin Regimen) vitamin B complex 1 cap PO QAM 10/13/20 04/09/24 History furosemide 20 mg tablet (Lasix) 20 mg PO DAILY PRN edema #90 tabs 02/06/23 04/09/24 Rx gabapentin 100 mg capsule 300 mg PO HS 02/06/23 04/09/24 History zolpidem 5 mg tablet 5 mg PO HS PRN Sleep 02/06/23 04/09/24 History dextroamphetamine-amphetamine 20 20 mg PO QAM 05/10/23 04/09/24 History mg tablet (Adderall) Shower Chair #1 ea 05/20/23 04/08/24 Rx mometasone 50 mcg/actuation nasal 2 spray intranasal DAILY PRN nasal 06/24/23 04/09/24 Rx spray congestion #54 grams propranolol 80 mg capsule,24 80 mg PO BID #180 caps 06/28/23 04/09/24 Rx hr,extended release buprenorphine 8 mg-naloxone 2 mg 2.5 tab sublingual DAILY 06/30/23 04/09/24 History sublingual tablet lamotrigine 100 mg tablet 200 mg PO HS 06/30/23 04/09/24 History pantoprazole 40 mg tablet,delayed 40 mg PO BID 06/30/23 04/09/24 History release brexpiprazole 4 mg tablet (Rexulti) 4 mg PO QAM 08/28/23 04/09/24 History clonazepam 0.5 mg tablet 0.5 mg PO DAILY PRN Anxiety 08/28/23 04/09/24 History prazosin 2 mg capsule 1 mg PO HS 08/28/23 04/09/24 History ondansetron HCl 4 mg tablet 4 mg PO Q8H PRN Nausea #20 tabs 02/13/24 04/09/24 Rx tizanidine 4 mg tablet 4 mg PO QID PRN muscle spasticity 03/18/24 04/09/24 Rx #360 tabs amlodipine 10 mg tablet 10 mg PO QAM 03/24/24 04/09/24 History ascorbic acid (vitamin C) 1,000 mg 1 g PO QAM 03/24/24 04/09/24 History tablet (Vitamin C) atorvastatin 80 mg tablet (Lipitor) 80 mg PO QPM 03/24/24 04/09/24 History clonidine HCl 0.1 mg tablet 0.1 mg PO HS 03/24/24 04/09/24 History estradiol 2 mg tablet 2 mg PO QAM 03/24/24 04/09/24 History multivitamin 1 tab PO QAM 03/24/24 04/09/24 History cholecalciferol (vitamin D3) 1,250 50,000 unit PO WK 04/09/24 04/09/24 History mcg (50,000 unit) capsule clopidogrel 75 mg tablet (Plavix) 75 mg PO QAM 04/09/24 04/09/24 History ferrous sulfate 325 mg (65 mg 325 mg PO UD 04/09/24 04/09/24 History iron) tablet Patient History Medical History Cauda equina syndrome Fibromyalgia Arthritis Kidney stone current problem Hx of drug abuse narcotic abuse 2019>reason for suboxone Anemia Post traumatic stress disorder Attention deficit disorder (ADD) Anxiety and depression Restless leg syndrome Neuropathy Migraine Tachycardia reason for propranolol (followed by Dr. Greenfield) Hx of diabetes mellitus hx borderline Diabetes H/O blood clots in heart>dx 2018 *reason for plavix History of pneumonia dx 01/2024 Asthma no recent flare ups "no inhalers" Coronary artery disease Neuropathic ulcer of left foot reason for surgery tomorrow Narcolepsy Bipolar disorder Celiac disease Hyperlipidemia Hypertension GERD (gastroesophageal reflux disease) Surgical History History of esophagogastroduodenoscopy (EGD) History of tonsillectomy History of cardiac cath x3--02/02/19 @ [facility]--no stents, sent to [facility], 02/03/19 @ [facility] [place], 02/05/19 @ [facility] S/P lumbar laminectomy (12/2019) bilateral L5-S1 laminectomy and partial diskectomy due to lumbar disk disease with cauda equina syndrome History of colonoscopy History of surgery Removal of rectal cyst History of bilateral tubal ligation History of section x 3 History of total abdominal hysterectomy and bilateral salpingo-oophorectomy History of cholecystectomy Family History Grandmother (Maternal) Family history of diabetes mellitus Uncle Family history of diabetes mellitus Other Anxiety Breast cancer Cardiac disorder Depression Hypertension Myocardial infarction No family history of adverse response to anesthesia Social History Smoking Status: Current every day smoker Tobacco Type: Cigarettes Age Started Using Tobacco: 26; packs per day: 0.01; Cigarettes Per Day: 20 cig per day>advised; Second Hand Exposure: No; Do You Dip or Chew Tobacco: Yes; Tobacco Cessation Education Requested by Patient: No Hx Alcohol Use: No Hx Substance Use: Yes Non-Prescribed Medications Comment: last used meth 4 prior to hospital admission Last Used Substance: Days (ago) Last Used Substance Other:: Saturday and Saturday prior to admission Substance Use Type Other:: medical marijuana Preferred Language: Citizen Of [place] Communication Ability: Effective Visual Impairment: No Limitations Hearing Ability: Normal 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: No Beliefs That Will Affect Care: None marital status: single Current Living Situation: Family Current Living Situation Comment: with son current occupational status: disabled Other Information That Helps Us Care for You: No Feels Safe at Home: Yes Safety Concerns: Feels Safe At This Time Diet: regular Physical Activity Frequency: Does not Exercise Seatbelt Use: always Sunscreen Use: No Assistive Devices: Special Shoe Results & Data Vital Signs (Past 12 Hours) Vital Signs Temp Pulse Resp BP Pulse Ox O2 Del Method 04/10/24 07:00 37.1 C 79 18 104/65 90 Room Air Laboratory Results Short CBC 04/10/24 Range/Units 05:56 WBC 8.18 (4.8-10.8) K/ul Hgb 11.5 L (12.0-16.0) g/dl Hct 33.0 L (37.0-47.0) % Plt Count 338 (130-400) K/uL BMP 04/10/24 05:56 Sodium 138 Potassium 2.7 L Chloride 103 Carbon Dioxide 26 BUN 5 L Creatinine 0.48 L Glucose 107 H Calcium 7.6 L Diagnostic Findings Chest X-Ray 04/09/24 08:54 XR chest 1V portable HISTORY: 48 years-old Female Sepsis COMPARISON: 08/28/2023 TECHNIQUE: AP view of the chest FINDINGS: No pneumothorax. No pleural effusions. The cardiac silhouette remains borderline enlarged. No new focal lung consolidations to suggest a pneumonia. Mild bibasilar atelectasis. Stable chronic interstitial coarsening. No evidence for pulmonary edema. IMPRESSION: No acute process. ACT 112: Negative or not required by law. The above report was generated using voice recognition software. It may contain grammatical, syntax or spelling errors. Electronically signed by: Samuel Friedman M.D. 04/09/2024 10:12 AM Foot X-Ray 04/09/24 08:56 XR foot LT 2V CLINICAL HISTORY: wound/surgery COMPARISON: Left foot radiographs November 13, 2021. CT of the left foot February 07, 2024. Left foot fluoroscopic images March 25, 2024. FINDINGS: Fusion of the left first, second and third tarsometatarsal joints is noted. The hardware is intact. The first metatarsal plate on radiographs December 15, 2023 has been removed. There are no acute fractures within the left foot. Midfoot degenerative changes suggestive of Charcot arthropathy are again noted. Extensive dorsal foot soft tissue swelling is present. There is a plantar wound of the midfoot. No radiographic evidence for acute osteomyelitis. No unexpected radiopaque foreign bodies. IMPRESSION: 1. Status post left midfoot fusion. Hardware intact. 2. No acute fractures within the left foot. 3. Midfoot degenerative changes suggestive of Charcot arthropathy, unchanged. 4. Plantar mid foot wound. No radiographic evidence for acute osteomyelitis. 5. Extensive dorsal soft tissue swelling, unchanged. ACT 112: Negative or not required by law. Electronically signed by: Elmo Stover M.D. 04/09/2024 10:28 AM Foot MRI 04/09/24 21:29 EXAM: MR foot LT w/o con CLINICAL HISTORY: Left foot infection. R/O new OM TECHNIQUE: MRI of the left foot was performed without intravenous contrast administration. Sequences obtained include: Sagittal STIR, T1, Coronal T1-weighted, STIR, Axial PD FS, STIR. COMPARISON: Comparison is made with prior imaging studies dated 07/01/2023 FINDINGS: Bone: There is bone marrow edema of the cuboid, lateral and intermediate cuneiform and metatarsal bones (apart from the 1st). Arthrodesis of the 1st, 2nd and 3rd metatarsa; bones to the opposing tarsals. Tendons: Fluid signal surrounding the flexor hallucis longus tendon denoting tenosynovitis. Muscles: The intrinsic plantar musculature of the foot show a large ill defined areas of high T1 and STIR signal and another areas of low T1 and high STIR signal. The visualized neurovascular structures do not reveal any obvious abnormality. Transverse and longitudinal arches of the foot are well maintained. Normal MRI appearance of the plantar fascia with no definite current MRI evidence to suggest plantar fasciitis. Soft Tissue: Extensive diffuse subcutaneous edema grade IV along the sole and dorsum of the foot. An ill defined track is seen breaching from the deep tissues to the skin surface. Mild tibiotalar, subtalar and intertarsal joints effusions. IMPRESSION: 1. Bone marrow edema of the cuboid, lateral cunieform and opposing metatarsals raise the possibility of osteomyelitis (newly developed). Clinical and lab. correlation advised. 2. Diffuse subcutaneous and soft tissue edema denting infective/inflammatory process. 3. Fatty degenerative changes -with some areas of edema- of the interinsic muscles of the foot. 4. Tenosynovitis of the flexor hallucis longus tendon. 5. Fixation and fusion of the first three metatarsals with the opposing tarsals in place. Electronically signed by Yazmin Burton 04-10-2024 12:54 AM Medications Administered Current Inpatient Medications Acetaminophen (Acetaminophen 500 Mg Tab) 500 mg PO Q4H PRN PRN Reason: Pain Stop: 05/09/24 13:48 Last Admin: 04/10/24 11:06 Dose: 500 mg Amlodipine Besylate (Amlodipine Besylate 5 Mg Tab) [facility] [place]: 05/10/24 08:59 Last Admin: 04/10/24 09:10 Dose: 10 mg Ascorbic Acid (Ascorbic Acid 500 Mg Tab) 1,000 mg PO QAM [facility] Stop: 05/10/24 08:59 Last Admin: 04/10/24 09:10 Dose: 1,000 mg Aspirin (Aspirin 81 Mg Ectab) 81 mg PO QAM [facility] Stop: 05/10/24 08:59 Last Admin: 04/10/24 09:10 Dose: 81 mg Buprenorphine/Naloxone (Buprenorphine/Naloxone 8/2 Mg Tab) 2.5 tab SL DAILY [facility] Stop: 05/10/24 08:59 Last Admin: 04/10/24 09:20 Dose: 2.5 tab Clonazepam (Clonazepam 0.5 Mg Tab) 0.5 mg PO DAILY PRN PRN Reason: Anxiety Stop: 05/09/24 15:55 Last Admin: 04/09/24 20:13 Dose: 0.5 mg Clonidine HCl (Clonidine Hcl 0.1 Mg Tab) 0.1 mg PO [facility] Stop: 05/09/24 20:59 Last Admin: 04/09/24 20:13 Dose: 0.1 mg Clopidogrel Bisulfate (Clopidogrel Bisulfate 75 Mg Tab) 75 [facility] [place]: 05/10/24 08:59 Last Admin: 04/10/24 09:10 Dose: 75 mg Enoxaparin Sodium (Enoxaparin Inj 40 Mg/0.4 Ml Syr) 40 mg SQ Q12H [facility] Stop: 05/09/24 20:59 Last Admin: 04/10/24 09:11 Dose: Not Given Ergocalciferol (Ergocalciferol 1250 Mcg (50,000 Units) Cap) 1,250 mcg PO We@0900 [facility] Stop: 05/15/24 08:59 Estradiol (Estradiol 1 Mg Tab) 2 mg [facility] [place]: 05/10/24 08:59 Last Admin: 04/10/24 09:11 Dose: 2 mg Ferrous Sulfate (Ferrous Sulfate 325 Mg Tab) 325 mg PO DAILY [facility] Stop: 05/10/24 08:59 Last Admin: 04/10/24 09:12 Dose: 325 mg Gabapentin (Gabapentin 300 Mg Cap) 300 mg PO [facility] Stop: 05/09/24 20:59 Last Admin: 04/09/24 20:13 Dose: 300 mg Piperacillin Sod/Tazobactam Sod (Zosyn) 4.5 gm in 100 mls @ 25 mls/hr IV Q8H [facility]; Protocol Stop: 04/16/24 15:59 Last Admin: 04/10/24 09:09 Dose: 25 mls/hr Daptomycin 375 mg/ Syringe 7.5 mls @ 3.75 mls/min IV Q24H [facility]; Protocol Stop: 04/16/24 16:59 Last Admin: 04/09/24 17:02 Dose: 3.75 mls/min Lamotrigine (Lamotrigine 100 Mg Tab) 200 mg PO HS [facility]; Protocol Stop: 05/09/24 20:59 Last Admin: 04/09/24 20:12 Dose: 200 mg Miscellaneous (*Rexulti*Order Awaiting Action) 1 each N/A QS [facility] Stop: 05/09/24 16:07 Last Admin: 04/10/24 07:49 Dose: Not Given Multivitamins (Multivitamin Tab) 1 tab PO QAM [facility] Stop: 05/10/24 08:59 Last Admin: 04/10/24 09:11 Dose: 1 tab Pantoprazole Sodium (Pantoprazole 40 Mg Tab) 40 mg PO BID [facility] Stop: 05/09/24 20:59 Last Admin: 04/10/24 09:11 Dose: 40 mg Prazosin HCl (Prazosin Hcl 1 Mg Cap) 1 mg PO HS [facility] Stop: 05/09/24 20:59 Last Admin: 04/09/24 20:12 Dose: 1 mg Propranolol HCl (Propranolol Hcl La 80 Mg Capcr) 80 mg PO BID [facility] Stop: 05/09/24 20:59 Last Admin: 04/10/24 09:11 Dose: 80 mg Tizanidine HCl (Tizanidine Hcl 4 Mg Tablet) 4 mg PO QID PRN PRN Reason: muscle spasticity Stop: 05/09/24 15:55 Vitamin B Complex (Vitamin B Complex Tab) 1 tab PO QAM [facility] Stop: 05/10/24 08:59 Last Admin: 04/10/24 09:12 Dose: 1 tab Zolpidem Tartrate (Zolpidem Tartrate 5 Mg Tab) 5 mg PO HS PRN PRN Reason: Sleep Stop: 05/09/24 15:55 (2) Cellulitis Laterality: left Site of cellulitis: extremity Site of cellulitis of extremity: lower extremity Qualified Code(s): L03.116 - Cellulitis of left lower limb
--- NOTE | 2024-04-10 16:45 | Hospitalist Progress Note ---
Date of Service April 10, 2024 Assessment & Plan (1) Open wound of left foot: Plan This patient is a 48-year-old female with a history of opioid/methamphetamine use disorder with recent methamphetamine use, fibromyalgia, depression/anxiety, prediabetes, and coronary artery thrombosis, who had recent surgery of her left foot here with left foot cellulitis and drainage from surgical wound. She was on ciprofloxacin as an outpatient. There is no evidence of osteo on x-ray. #Left foot cellulitis/suspected osteomyelitis/indwelling hardware and foot Here with progressive worsening and with purulent discharge. Foot x-ray: Extensive dorsal soft tissue swelling, no radiographic evidence of osteomyelitis. S/p left midfoot fusion with hardware intact. Midfoot degenerative changes suggestive/consistent with Charcot arthropathy stable from prior. Unclear why she has a Charcot foot, but perhaps related to methamphetamine use or peripheral neuropathy of unknown etiology? Plantar Wound that probes to bone and MRI left foot suspicious for osteomyelitis of the cuboid, lateral cuneiform, and opposing metatarsals. Also with tenosynovitis of flexor houses longus tendon. Febrile at home but afebrile here. No leukocytosis, no evidence of sepsis. CRP and ESR quite elevated. Procalcitonin negative. Wound culture taken on admission Podiatry consulted-debrided at bedside on 04/10, does not feel needs more extensive debridement at this time Consulted infectious disease-appreciate recommendations Wound culture intraoperatively of bone from 03/25/2024: Polymicrobial. Sensitive to fluoroquinolones, Klebsiella/E. coli/Pseudomonas species at that time. Prior wound culture 09/2023 with Serratia and Pseudomonas: Sensitive I do not note a murmur but 1 was noted on admission-echo here negative for valvular vegetation -Continue Zosyn and daptomycin for now and anticipate 6 weeks of IV antibiotics followed by lifelong p.o. antibiotic suppression likely with regla quinolone since infected hardware cannot be removed -Follow wound cultures, blood cultures -If debridement performed, send intraoperative cultures -Appreciate podiatry management, wound care as per podiatry #Drug abuse, MDD, anxiety History of opioid abuse, per patient in remission and continued on Suboxone History of methamphetamine use, previously sober for 7 months but used methamphetamines this past Saturday and Saturday prior to admission Continue prazosin, propranolol, Rexulti, Lamictal, clonidine, as needed clonazepam #History of coronary artery thrombosis/HTN History of left main thrombus s/p aspiration thrombectomy at [facility] 2018-Was felt to be due to methamphetamine use at that time Continue aspirin, Plavix, beta-maco, amlodipine. Atorvastatin held while on daptomycin #Prediabetes History of prediabetes last A1c 5.7%, previously 6.5% Will monitor daily BMP, if BSG is above goal of 180 then switch to DM2 diet with SSI at that time #Chronic pain/herniated disc/cauda equina syndrome/postlaminectomy in 12/2019- continue gabapentin, tizanidine #GERD-continue PPI #Postmenopausal symptoms-continues on estradiol. She is status post total abdominal hysterectomy, BSO. This certainly does put her at increased risk for clot given recent surgery, obesity DVT prophylaxis: Lovenox Disposition: Continued stay medical/surgical unit Admission and Anticipated Discharge Date Admission Date: April 09, 2024 Subjective Patient denies pain. Feels the redness in her foot is a little worse than usual but the swelling in her leg is about the same as always. Denies chest pains or shortness of breath, no nausea or diarrhea. No other complaints. I discussed her care with podiatry. Physical Exam Constitutional: WD/WN, vitals as above Respiratory: normal respiratory effort, lungs clear to auscultation Cardiovascular: Rate/Rhythm: regular rate and regular rhythm Heart Sounds: no murmur Extremities: + edema (Lymphedema bilateral lower extremities) Musculoskeletal: Extremities: + extremities abnormal to inspection (Left foot with 3+ edema, erythema dorsal foot, dressing in place ) Skin: + erythema (Chronic venous stasis change s left leg) Psychiatric: Orientation: alert and oriented x 3 Affect: + flat affect Results & Data Results & Data Vital Signs (Past 12 Hours) Vital Signs Temp Pulse Resp BP Pulse Ox O2 Del Method 04/10/24 15:35 37.1 C 71 18 105/71 94 Room Air 04/10/24 07:00 37.1 C 79 18 104/65 90 Room Air Laboratory Results CBC, BMP, wound culture reviewed PG Care Time/CCT Total # of Minutes Spent Total Time Spent with Patient: Total time spent is greater than 50% in coordination of care (as documented) at patient's floor/unit and/or counseling patient: Coding Level of Care Code 57721 SUB INP/OBS CARE 3/50MIN Diagnoses Open wound of left foot, initial encounter S91.302A Encounter type: initial encounter (1) Open wound of left foot Encounter type: initial encounter Qualified Code(s): S91.302A - Unspecified open wound, left foot, initial encounter
[2024-04-10] MEDS: tiZANidine HCL 4 MG TABLET PO PRN (20:46)
--- NOTE | 2024-04-10 22:26 | Podiatry Progress Note ---
Date of Service April 10, 2024 Assessment & Plan (1) Cellulitis: (2) Open wound of left foot: (3) Lower extremity edema: (4) Post-traumatic arthritis of left foot: (5) Osteomyelitis of foot, left, acute: Plan Patient examined and evaluated. - bedside excisional debridement was performed today, utilizing a #15 blade and 5 mm open disposable curette. The wound bed was able to be converted to granular tissue though is still the same size as yesterday. The wound still does probe to the bone as noted previously. No abscess was identified. No drainable fluid collection noted. - She can likely avoid further surgical invention for now, assuming she is going to begin infectious disease recommendations of 2 months or so IV antibiotics and suppressive long-term antibiotics. This will help heal the wound and help attempt at limb salvage. - She will need long-term wound care, which she can likely follow-up with the [facility] wound care center for. - On this hospitalization, she would benefit from daily wound care dressing changes, until Saturday when ideally the wound care team can begin following up with her. - We will recommend aquacel AG with bulky sterile dressings daily until she can be evaluated by the wound care team. - She is anxious about getting out of the hospital as soon as possible to return to work, so ideally case management can establish a plan of care regarding her IV antibiotics as soon as possible. - For now, we will defer surgical intervention further, though she can attempt a Lisfranc reconstruction in the future if she is able to heal this ulceration and improve her infectious state. Admission and Anticipated Discharge Date Admission Date: April 09, 2024 Subjective patient seen at bedside at lunchtime. Her appetite is healthy, eating her lunch without concern. She continues to have no pain to the left foot. She has not at this point discussed her care with infectious disease and is awaiting her MRI results, from her MRI obtained earlier this hospitalization. Denies any other new systemic signs or symptoms of infection. Overall, she is feeling better compared to yesterday. Review of Systems Constitutional: + fever, + chills, + fatigue, + malaise and + weakness Eyes: no problem reported Ear, Nose, Mouth, Throat: no problem reported Respiratory: no problem reported Cardiovascular: + edema; no chest pain, no chest pain wi th activity, no calf pain and no problem reported Gastrointestinal: + nausea; no vomiting and no diarrhea/lo ose stools Genitourinary: no problem reported Musculoskeletal: no problem reported Integumentary: + skin ulcer, + wounds and + erythema Neurologic: + loss of sensation, + numbness and + pa resthesia; no generalized weakness Psychiatric: no problem reported Physical Exam Physical Exam: lower extremity: DP/PT pulses nonpalpable, likely secondary to significant edema. This edema is mostly at her baseline. There is erythema and calor noted to the left foot, consistent with this new onset of cellulitis. No active bleeding is noted to the plantar ulcer though there is serous, cloudy drainage from the wound bed. The wound still probes to bone with the wound bed largely fibrotic and macerated. There is malodor noted. The wound measures 4 cm x 2 cm x 2.2 cm deep. No proximal tracking noted. Surgical incision to the dorsal aspect of the foot is well-healed with nylon sutures still intact. She is roughly 2 weeks status post this surgical intervention. radiographs obtained by the emergency department reveals no significant changes compared to her prior imaging that the plantar ulceration is visualized and the soft tissue. Constitutional: WD/WN, vitals as above + ill appearing and + morbidly obese Eyes: PERRL, conjunctivae normal, anicteric sclerae ENMT: external ear and nose normal, oropharynx normal Neck: trachea midline, no thyromegaly normal visual inspection Respiratory: normal respiratory effort; no respiratory distress Cardiovascular: Rate/Rhythm: regular rate and regular rhythm Chest (Breasts): Chest: normal inspection of chest Gastrointestinal (Abdomen): Inspection/Auscultation: abdomen normal to inspection Percussion/Palpation: + abdomen tender and abdomen soft Musculoskeletal: no cyanosis or clubbing, extremities motor strength 5/5 Head/Neck/Chest: normocephalic and head atraumatic Extremities: extremities normal to inspection Neurologic: awake; no focal motor deficits Psychiatric: A+Ox3, euthymic affect Results & Data Results & Data Vital Signs (Past 12 Hours) Vital Signs Temp Pulse Resp BP Pulse Ox O2 Del Method 04/10/24 21:22 37.1 C 74 15 122/75 98 Room Air 04/10/24 15:35 37.1 C 71 18 105/71 94 Room Air (1) Cellulitis Laterality: left Site of cellulitis: extremity Site of cellulitis of extremity: lower extremity Qualified Code(s): L03.116 - Cellulitis of left lower limb (2) Open wound of left foot Encounter type: initial encounter Qualified Code(s): S91.302A - Unspecified open wound, left foot, initial encounter
[2024-04-10] MEDS: COUGH DROP (SUGAR FREE) LOZ 24 LOZ/1 BOX BUCCAL ONE (22:41)
[2024-04-11 06:38] LABS: Basophils # (auto) 0.08 K/uL (0.00-0.20); Basophils % (auto) 0.8 %; Eosinophils # (auto) 0.32 K/uL (0.00-0.50); Eosinophils % (auto) 3.3 %; Hematocrit (blood only) 34.5 % (37.0-47.0); Immature Granulocytes # (auto) 0.07 K/uL (0.01-0.20); Immature Granulocytes % (auto) 0.7 %; Lymphocytes # (auto) 2.38 K/uL (1.20-3.40); Lymphocytes % (auto) 24.9 %; Mean Corpuscular Hemoglobin 30.5 pg (25.0-34.0); Mean Corpuscular Hgb Conc 34.8 g/dL (32.0-36.0); Mean Corpuscular Volume 87.8 fL (80.0-100.0); Mean Platelet Volume 8.5 fL (9.4-12.4); Monocytes # (auto) 0.83 K/uL (0.11-0.59); Monocytes % (auto) 8.7 %; Neutrophils # (auto) 5.89 K/uL (1.40-6.50); Neutrophils % (auto) 61.6 %; Platelet Count 377 K/uL (130-400); RDW Coefficient of Variation 12.8 % (11.5-14.5); RDW Standard Deviation 41.4 fL (36.4-46.3); Red Blood Count 3.93 M/uL (4.20-5.40); White Blood Count 9.57 K/ul (4.8-10.8)
[2024-04-11 07:10] LABS: BUN Creatinine Ratio 11.3 (10-20); C Reactive Protein 9.83 mg/dl (0-0.5); Calcium 8.3 mg/dl (8.6-10.3); Creatinine Clr Calc Pharmacy 191.7 ml/min
[2024-04-11 07:53] VITALS: RESP 18
[2024-04-11] MEDS: IBUPROFEN 600 MG TAB PO PRN (08:45)
[2024-04-11] MEDS: POTASSIUM CHLORIDE CRTAB 20 MEQ TABCR PO STA (08:46)
[2024-04-11 09:15] LABS: Magnesium 1.9 mg/dl (1.7-2.4)
[2024-04-11] MEDS: ARIPiprazole 15 MG TAB PO SCH (14:56)
[2024-04-11 16:36] VITALS: BP 117/64; PULSE 55; TEMP 97.9; O2SAT 100
--- NOTE | 2024-04-11 19:40 | Discharge Summary ---
Discharge Summary Date of Service April 11, 2024 Principal Dx & Hospital Course #1 = Principal Diagnosis (1) Open wound of left foot: (2) Osteomyelitis of foot, left, acute: (3) Anxiety and depression: Plan This patient is a 48-year-old female with a history of opioid/methamphetamine use disorder with recent methamphetamine use, fibromyalgia, depression/anxiety, prediabetes, and coronary artery thrombosis, who had recent surgery of her left foot here with left foot cellulitis and drainage from surgical wound with indwelling hardware. She was on ciprofloxacin as an outpatient. There is no evidence of osteo on x-ray, but MRI of the foot confirmed this. #Left foot cellulitis/suspected osteomyelitis/indwelling hardware and foot Here with progressive worsening and with purulent discharge. Foot x-ray: Extensive dorsal soft tissue swelling, no radiographic evidence of osteomyelitis. S/p left midfoot fusion with hardware intact. Midfoot degenerative changes suggestive/consistent with Charcot arthropathy stable from prior. Unclear why she has a Charcot foot, but perhaps related to methamphetamine use or peripheral neuropathy of unknown etiology? With plantar Wound that probes to bone and MRI left foot suspicious for osteomyelitis of the cuboid, lateral cuneiform, and opposing metatarsals. Also with tenosynovitis of flexor houses longus tendon. Febrile at home but afebrile here. No leukocytosis, no evidence of sepsis. CRP and ESR quite elevated. Procalcitonin negative. Wound culture taken on admission pending at the time of discharge Podiatry consulted-debrided at bedside on 04/10, does not feel needs more extensive debridement at this time Consulted infectious disease-appreciate recommendations for 6 weeks of IV antibiotics Wound culture intraoperatively of bone from 03/25/2024: Polymicrobial. Sensitive to fluoroquinolones, Klebsiella/E. coli/Pseudomonas species at that time. Prior wound culture 09/2023 with Serratia and Pseudomonas: Sensitive I do not note a murmur but there was one noted by admitting physician-echo here negative for valvular vegetation and blood cultures remain no growth to date -She received IV Zosyn and daptomycin, and ID recommends 6 weeks of IV antibiotics followed by lifelong p.o. antibiotic suppression likely with fluoroquinolone since infected hardware cannot be removed -Patient left AGAINST MEDICAL ADVICE before cultures were resulted, PICC line could be inserted, and home IV antibiotics could be arranged-she was not given any antibiotics on discharge -wound cultures, blood cultures still pending at the time of discharge -Appreciate podiatry management, wound care as per podiatry with daily dressing changes with Aquacel and Kerlix. Follow-up with podiatry in the office #Drug abuse, MDD, anxiety History of opioid abuse, per patient in remission and continued on Suboxone History of methamphetamine use, previously sober for 7 months but used methamphetamines this past Saturday and Saturday prior to admission Continue prazosin, propranolol, Rexulti, Lamictal, clonidine, as needed clonazepam #History of coronary artery thrombosis/HTN History of left main thrombus s/p aspiration thrombectomy at [facility] 2018-Was felt to be due to methamphetamine use at that time Continue aspirin, Plavix, beta-maco, amlodipine. Atorvastatin held while on daptomycin but can be resumed on discharge #Prediabetes History of prediabetes last A1c 5.7%, previously 6.5% No treatment #Chronic pain/herniated disc/cauda equina syndrome/postlaminectomy in 12/2019- continue gabapentin, tizanidine #GERD-continue PPI #Postmenopausal symptoms-continues on estradiol. She is status post total abdominal hysterectomy, BSO. This certainly does put her at increased risk for clot given recent surgery, obesity DVT prophylaxis: Lovenox Disposition: Patient left AGAINST MEDICAL ADVICE despite counseling on the risks to include worsening infection, sepsis, and if she does not receive ongoing IV antibiotic treatment and care in the hospital. She understands these risks but still wants to go home due to severe anxiety of being in the hospital. I did offer her Abilify as a substitute for her Rexulti which was not available. Offered her other treatment for anxiety. She was also concerned about her dog being at home. Admission HPI Per Admitting Provider Mary Jo is a 48-year-old female with a past medical history of fibromyalgia, Charcot foot, drug abuse, left foot wound, tobacco dependence, thyroiditis with recent left foot debridement/hardware removal/bone biopsy with podiatry Dr. Sorensen 03/26/2024 presents to the emergency department with fever, chills, aches and fatigue. Patient has had worsening symptoms for around 1 week. She did have surgery to her left foot 03/26/2024 and has been on ciprofloxacin. seen at bedside. Increasing redness drainage from her left foot in the last week in addition to fever, chills, and aches. She does not leukocytosis but of markedly elevated inflammatory markers. Has been compliant and taking cipro and all other meds, although took no medications today. No pain at the foot but has increased drainage. Deneis cough. Denies dyspnea. Denies chest pain. Denies lightheadedness/dizziness. Hx IVDU with recent methamphetamine use 2x this week. Hx of opioid abuse in remission, currenly on suboxone. Initially was going to discuss leaving ER ?AMA with ED however on reviewing presentation, concerns for worsening infection and ?endocarditis pt agreeable to remain for inpatient antibiotics and further evaluation. Medical History: Reviewed Medications: Reviewed Surgical History: Reviewed Family history: Reviewed Allergies: Reviewed Social History: Hx tobacco, IVDU, methamphetamine use Code Status: Full Discharge Exam Constitutional WD/WN, vitals as above Respiratory normal respiratory effort, lungs clear to auscultation Cardiovascular Rate/Rhythm: regular rate and regular rhythm Heart Sounds: no murmur Extremities: + edema (Lymphedema bilateral lower extremities) Musculoskeletal Extremities: + extremities abnormal to inspection (Left foot with 3+ edema, er ythema dorsal foot, dressing in place ) Skin + erythema (Chronic venous stasis changes left leg) Psychiatric Orientation: alert and oriented x 3 Affect: + flat affect Discharge Plan Discharge Items Patient Disposition: Against Medical Advice Reason For Visit: L CELLULITIS ?OSTEO, POSSIBLE ENDOCARDITIS Activity: Resume your previous activity Non-emergency contact: Primary Care Provider Follow-up/Referrals: Liya Stover MD [Primary Care Provider] - Pending Studies at Discharge: Yes (Blood cultures, wound culture) Stand-Alone Forms: [facility], Smoking Cessation Medications and DC Order Prescriptions: Continued (DME) Shower Chair Misc See Rx Instructions .Route Qty: 1 0RF Rx Instructions: As directed mometasone 50 mcg/actuation spray,non-aerosol 2 spray INTNAS DAILY PRN (Reason: nasal congestion) Qty: 54 3RF propranolol 80 mg capsule,extended release 24hr 80 mg PO BID Qty: 180 3RF ondansetron HCl 4 mg tablet 4 mg PO Q8H PRN (Reason: Nausea) Qty: 20 0RF Rx Instructions: TAKE ONE TABLET BY MOUTH EVERY 8 HOURS NEEDED FOR NAUSEA. tizanidine 4 mg tablet 4 mg PO QID PRN (Reason: muscle spasticity) Qty: 360 1RF dextroamphetamine-amphetamine [Adderall] 20 mg tablet 20 mg PO QAM zolpidem 5 mg tablet 5 mg PO HS PRN (Reason: Sleep) furosemide [Lasix] 20 mg tablet 20 mg PO DAILY PRN (Reason: edema) Qty: 90 3RF gabapentin 100 mg capsule 300 mg PO HS aspirin [Adult Aspirin Regimen] 81 mg tablet,delayed release (DR/EC) 81 mg PO QAM vitamin B complex Capsule 1 cap PO QAM prazosin 2 mg capsule 1 mg PO HS clonazepam 0.5 mg tablet 0.5 mg PO DAILY PRN (Reason: Anxiety) Rexulti 4 mg tablet 4 mg PO QAM atorvastatin [Lipitor] 80 mg tablet 80 mg PO QPM clonidine HCl 0.1 mg tablet 0.1 mg PO HS amlodipine 10 mg tablet 10 mg PO QAM estradiol 2 mg tablet 2 mg PO QAM multivitamin Tablet 1 tab PO QAM ascorbic acid (vitamin C) [Vitamin C] 1,000 mg Tablet 1 g PO QAM clopidogrel [Plavix] 75 mg tablet 75 mg PO QAM Patient Comments: on hold for surgery ferrous sulfate 325 mg (65 mg iron) tablet 325 mg PO UD Patient Comments: new rx, has not started Rx Instructions: hasnt started, still at pharmacy 1 tablet daily cholecalciferol (vitamin D3) 1,250 mcg (50,000 unit) capsule 50,000 unit PO WK Rx Instructions: 50,000 units orally once weekly; SATURDAY buprenorphine-naloxone 8-2 mg tablet, sublingual 2.5 tab SUBLINGUAL DAILY Patient Comments: "decreased per suboxone doctor" Rx Instructions: 2.5 mg through out the whole day pantoprazole 40 mg tablet,delayed release (DR/EC) 40 mg PO BID Rx Instructions: TAKE 1 TABLET TWICE DAILY lamotrigine 100 mg tablet 200 mg PO HS Admission Data Admit Date/Time: 04/09/24 12:14 Attending Provider: Isaura Park Admit Provider: Jack Greenwood Primary Care Provider: Liya Stover Other Providers: Jack Greenwood; Lencho Sorensen; Marina Fernández; [facility] Hospital Stay Data Consultations 04/09/24 11:14 ED Decision to Admit Stat 04/09/24 12:12 Consult Podiatry Routine 04/10/24 07:37 Consult Infectious Diseases Routine Diagnostic Imagining Performed 04/09/24 21:29 MR foot LT w/o con Routine Total Time Total Time Spent Total Time Spent (In Minutes): 40 minutes Total Time Includes: Examination of the Patient, Discharge Planning, Medication Reconciliation and Communication With Other Providers Coding Level of Care Code 28858 INP/OBS DISCH >30 MIN Diagnoses Open wound of left foot, initial encounter S91.302A Encounter type: initial encounter Osteomyelitis of foot, left, acute M86.172 Anxiety and depression F41.9; F32.A
[2024-04-12] MEDS ORDERED: ARIPiprazole 5 MG TAB PO SCH (09:00)
[2024-04-15] MEDS ORDERED: ERGOCALCIFEROL 1250 MCG (50,000 UNITS) CAP PO SCH (09:00)
== END 2024-04-11 19:35 | disposition left against medical advice (07) | DRG 539 ==
LOC: ED 08:16 → SUATTDRO 12:14 → EDINP 12:14 → 3E 15:10